=== PATIENT | male | born 1965 | race African-American/Black ===

== ENCOUNTER 2018-11-19 05:17 | Inpatient (IN) | payer OTHER ==
[2018-11-19] VITALS (15 sets, daily range): BP systolic 120–169; BP diastolic 74–101
[~2018-11-19] VITALS: Ht 182.9 cm; Wt 116.6 kg
[~2018-11-19 05:17] MED LIST: NKM
[2018-11-19] MEDS ORDERED: oxyCONTIN 20mg tab ORAL ONE (06:00)
[2018-11-19] MEDS ORDERED: ceFAZolin 1gm IVPB IVPB ONE ×2 (06:00)
[2018-11-19] MEDS ORDERED: celeBREX 200mg Cap **SURGERY PATIENTS ONLY ORAL ONE (06:00)
[2018-11-19] MEDS ORDERED: LR 1000ml 1,000 ML IVLG SCH (06:24)
--- NOTE | 2018-11-19 06:24 | Anethesia Preoperative Eval ---
Anesthesia Pre-op PMH/ROS General Date of Evaluation: Nov 19, 2018 Time of Evaluation: 06:44 Anesthesiologist: Lyric ASA Score: ASA 3 Mallampati Score Class I : Soft palate, uvula, fauces, pillars visible Class II: Soft palate, uvula, fauces visible Class III: Soft palate, base of uvula visible Class IV: Only hard plate visible Mallampati Classification: Class III Surgeon: Kathleen Diagnosis: L Knee Pain Surgical Procedure: L Knee Total Arthroplasty Anesthesia History: none Family History: no anesthesia problems Allergies: Coded Allergies: No Known Allergies (Unverified , 11/18/18) Medications: see eMAR Patient NPO?: Yes NPO Date: Nov 18, 2018 NPO Time: 1999 Past Medical History Cardiovascular: Reports: HTN Pulmonary: Reports: asthma Other: obesity PSxH Narrative: Bilateral Rotator Cuff Repair, Gastric Banding Anesthesia Pre-op Phys. Exam Physician Exam Last Vital Signs Date Time Temp Pulse Resp B/P (MAP) Pulse Ox O2 Delivery O2 Flow Rate FiO2 11/19/18 06:14 Room Air 11/19/18 06:03 97.5 64 18 140/86 (104) 96 Constitutional: NAD Neurologic: CN 2-12 intact Cardiovascular: RRR Respiratory: CTA Gastrointestinal: S/NT/ND Airway Exam Mallampati Score: Class III MO: limited ROM: limited Teeth: missing, intact Anesthesia Pre-op A/P Risk Assessment & Plan Assessment: ASA 3 Plan: GA, Sinal, SED Status Change Before Surgery: No Pre-Antibiotics Dru Grams Ancef IV Given Within 1 Hr of Incision: Yes Time Given: 07:16 Arturo Gunter MD Nov 19, 2018 06:24
[2018-11-19] MEDS ORDERED: Bupivacaine 0.5% Inj 30 ml vial INJ ONE (06:25)
[2018-11-19] MEDS ORDERED: Duramorph PF 5mg/10ml amp ONE (06:25)
[2018-11-19] MEDS ORDERED: Labetalol 5mg/ml 20ml vial IV PRN (06:30)
[2018-11-19] MEDS ORDERED: Metoclopramide 10mg/2ml Inj IVP PRN (06:30)
[2018-11-19] MEDS ORDERED: Bacitracin 50000 Units Vial ONE (06:30)
[2018-11-19] MEDS ORDERED: DiphenhydrAMINE 50mg/ml Inj IVP PRN (06:30)
[2018-11-19] MEDS ORDERED: HYDROcodone/Acetamin 7.5/325 tab ORAL PRN (06:30)
[2018-11-19] MEDS ORDERED: LORazepam Inj 2mg/ml 1ml IV PRN (06:30)
[2018-11-19] MEDS ORDERED: HYDROcodone/Acetamin 5/325 tab ORAL PRN (06:30)
[2018-11-19] MEDS ORDERED: oxyCODONE HCL/Acetaminophen 5/325mg ORAL PRN (06:30)
[2018-11-19] MEDS ORDERED: Meperidine 50mg/ml Inj(FOR RIGORS ONLY) IVP PRN (06:30)
[2018-11-19] MEDS ORDERED: Midazolam 2mg/2ml Inj IVP PRN (06:30)
[2018-11-19] MEDS ORDERED: Hydromorphone 0.5mg/0.5ml inj IVP PRN (06:30)
[2018-11-19] MEDS ORDERED: Tranexamic Acid 1,000 MG in NS 65 ML IV ONE (06:30)
[2018-11-19] MEDS ORDERED: Atropine Sulfate 0.4mg/ml inj IVP PRN (06:30)
[2018-11-19] MEDS ORDERED: fentaNYL 100 mcg/2 mL IV PRN (06:30)
[2018-11-19] MEDS ORDERED: Ketorolac 30mg Inj IV PRN ×2 (06:30)
[2018-11-19] MEDS ORDERED: Dexamethasone 4mg/ml vial ONE ×2 (06:40→09:16)
[2018-11-19] MEDS ORDERED: Sodium Chloride 10ml vial INJ ONE (06:40)
[2018-11-19] MEDS ORDERED: Lidocaine 1% MPF 10mg/ml 5ml ONE (06:40)
[2018-11-19] MEDS ORDERED: EPINEPHrine 1mg/1ml Amp ONE ×2 (06:47→09:17)
--- NOTE | 2018-11-19 06:54 | Pre-Procedure Note/Attestation ---
Pre-Procedure Note/Attestation Complete Prior to Procedure Planned Procedure: left Procedure Narrative: left total knee arthroplasty Indications for Procedure Pre-Operative Diagnosis: left knee arthritis Attestation I attest that I discussed the nature of the procedure; its benefits; risks and complications; and alternatives (and the risks and benefits of such alternatives ), prior to the procedure, with the patient (or the patient's legal corporate sales representative). I attest that, if there was a reasonable possibility of needing a blood transfusion, the patient (or the patient's legal corporate sales representative) was given the [facility] standardized written summary, pursuant to the Trae Miguel Blood Safety Act ([place] Health and Safety Code # 1645, as amended). I attest that I re-evaluated the patient just prior to the surgery and that there has been no change in the patient's H&P, except as documented below: none Edson Wang MD Nov 19, 2018 06:54
[2018-11-19] MEDS ORDERED: NS Irrig 2000ml IRRIG ONE ×2 (07:00→07:58)
[2018-11-19] MEDS ORDERED: LR 1000ml ONE (07:00)
[2018-11-19] MEDS ORDERED: NS Irrig 1000ml ONE (07:00)
[2018-11-19] MEDS ORDERED: Propofol 200mg/20ml IV ONE (07:00)
[2018-11-19] MEDS ORDERED: fentaNYL 100 mcg/2 mL IV ONE (07:42)
[2018-11-19] MEDS ORDERED: Ketamine 500mg Inj ONE (07:47)
[2018-11-19] MEDS ORDERED: Bacitracin 50000 Units Vial IRRIG ONE (07:58)
[2018-11-19] MEDS ORDERED: Acetaminophen (Non formulary) 100 ML IV ONE (08:00)
--- NOTE | 2018-11-19 08:13 | Immediate Post-Op Evaluation ---
Immediate Post-Op Evalulation Immediate Post-Op Evalulation Procedure: L Knee Total Arthroplasty Date of Evaluation: Nov 19, 2018 Time of Evaluation: 09:52 IV Fluids: 1000 LR Blood Products: 0 Estimated Blood Loss: 50 Urinary Output: 100 Blood Pressure Systolic: 147 Blood Pressure Diastolic: 85 Pulse Rate: 91 Respiratory Rate: 16 O2 Sat by Pulse Oximetry: 100 Temperature (Fahrenheit): 98 Pain Score (1-10): 3 Nausea: No Vomiting: No Complications 0 Patient Status: awake, reacts, patent, extubated, none Hydration Status: adequate Dru Grams Ancef IV Given Within 1 Hr of Incision: Yes Time Given: 07:16 Arturo Gunter MD Nov 19, 2018 08:13
[2018-11-19] MEDS ORDERED: Ropivacaine 5mg/ml Vial 30ml INJ ONE (09:17)
--- NOTE | 2018-11-19 09:21 | Brief Operative Note ---
Immediate Post Operative Note Operative Note Chief Complaint: left knee pain Pre-op Diagnosis: left knee arthritis Procedure: left total knee arthroplasty Post-op Diagnosis: same as pre-op Findings: consistent w/pre-op dx studies Surgeon: md rigo Motor Installer: mando barajas Anesthesiologist: md akshat Anesthesia: general Specimen: yes Complications: none Condition: stable Fluids: ns Estimated Blood Loss: minimal Drains: none Implant(s) used?: Yes - austin and nephew India Barajas Nov 19, 2018 09:21
--- NOTE | 2018-11-19 11:20 | NUR ---
NURSE NOTES:RECEIVED FR. PACU BY BED S/P LTKA UNDER SPINAL/LEFT FEMORAL BLOCK,PATIENT AWAKE A/OX4,ON 2LITERS N/C,NO C/O PAIN ON ASSESSMENT,ABLE TO MOVE LEFT LEG AND WIGGLE TOES.SURGICAL DRSNG. CLEAN/DRY/INTACT. WITH KNEE IMMOBILZER ON,.IV SITE ON RFA #20 PATENT.ROSAS WITH GOOD OUTPUT.POST OP ORDERS DISCUSSED WITH PATIENT AND VERBALIZED WITH UNDERSTANDING.NICK(PT) NOTIFIED FOR CPM.
[2018-11-19] MEDS ORDERED: HYDROmorphone 1mg/ml Carpuject SUBQ PRN (12:00)
[2018-11-19] MEDS ORDERED: Milk of Magnesia 30ml Ud ORAL PRN (12:00)
[2018-11-19 12:35] LABS: HEMATOCRIT 40.9 % (42.0-52.0); HEMOGLOBIN 13.2 G/DL (14.2-18.0); MEAN CORPUSCULAR VOLUME 95 FL (80-99); PLATELET COUNT 243 K/UL (150-450); RED BLOOD COUNT 4.31 M/UL (4.70-6.10); RED CELL DISTRIBUTION WIDTH 12.7 % (11.6-14.8); WHITE BLOOD COUNT 7.7 K/UL (4.8-10.8)
[2018-11-19] MEDS: Docusate 100mg cap ORAL SCH ×2 (13:56→17:12)
[2018-11-19] MEDS: D5 1/2NS w/KCl 20mEq 1,000 ML IV SCH (13:57)
[2018-11-19] MEDS: oxyCONTIN 20mg tab ORAL SCH ×2 (13:58→23:57)
[2018-11-19] MEDS: ceFAZolin sod 1 GM in D5W 55 ML IV SCH ×2 (14:07→22:53)
--- NOTE | 2018-11-19 14:45 | NUR ---
NURSE NOTES:CPM ON 60 DEG.STARTED BY NICK (LUCRECIA)
--- NOTE | 2018-11-19 14:46 | Diagnostic Imaging Report ---
Indications: Postoperative Technique: Two views of the left knee Comparison: None Findings: Two postoperative views of the left knee demonstrate total knee arthroplasty, good anatomic alignment of the prosthesis. There is postsurgical soft tissue air. Impression: Postoperative left knee, no unusual features.
--- NOTE | 2018-11-19 14:51 | NUR ---
P.T Note: Order for CPM set up received. Neuro re-checked prior to set-up and remained intact. Pt educated on use and benefits of CPM with verbalization of understanding. CPM set up to L knee and tolerating 0-60 deg well. CPM endorsed to nursing at the end of P.T shift.
[2018-11-19] MEDS: HYDROcodone/Acetamin 5/325 tab ORAL PRN ×2 (17:10→22:54)
--- NOTE | 2018-11-19 17:10 | NUR ---
NURSE NOTES:TOLERATED 4HOURS WITH CPM AT 60 DEG.MEDICATED FOR PAIN 04/15.WITH NORCO 2 TABS.WILL MONITOR.
--- NOTE | 2018-11-19 18:45 | Operative Note - Dictated ---
DATE OF OPERATION: 11/19/2018 PREOPERATIVE DIAGNOSIS: Left knee end-stage arthritis without significant alignment deformity. POSTOPERATIVE DIAGNOSIS: Left knee end-stage arthritis without significant alignment deformity. PROCEDURE: Left total knee arthroplasty using a Crum and Nephew system, size 6 Legion cruciate retaining Oxinium femoral component, size 7 Valentina II left nonporous tibial base plate, size 15 mm ultra cross-linked poly as well as a 35 mm patellar component. SURGEON: Edson Wang M.D. JACKER: India Jacobs PA-C. ANESTHESIOLOGIST: Arturo Gunter M.D. ANESTHESIA: General LMA anesthesia combined with spinal block for postoperative pain management. ESTIMATED BLOOD LOSS: Less than 100 mL. TOURNIQUET TIME: 70 minutes. COMPLICATIONS: None. BRIEF HISTORY: The patient is a pleasant 53-year-old gentleman, who has had ongoing left knee pain. He has a hard time going up and down stairs or getting up off the chair and has nighttime pain. His ambulation is limited to 1.5 to 2 blocks. After full discussion of risks and benefits of the surgery and complications associated with it including infection, bleeding, neurovascular complication, possibility of continued pain, possibility of need for further surgery, possibility of DVT, PEs, loss of motion, and infection requiring resection arthroplasty, other complication may arise, he opted for surgical treatment as described below. OPERATIVE PROCEDURE: The patient was brought to the operating table and was placed supine. All pressure points were well padded. General LMA anesthesia was induced and the left knee was prepped and draped in the usual sterile fashion. The left leg was then exsanguinated and the tourniquet was inflated to 300 mmHg. Standard anterior approach to the knee was undertaken and the incision was taken through subcutaneous tissue. Medial parapatellar arthrotomy was performed and deep fibers of the MCL were released. Medial lateral meniscus were removed. The fat pad underneath the patella was removed. The patella was everted and knee was flexed. At this point, ACL and PCL were resected. Intramedullary access into the femur was obtained and a distal femoral cut was performed in 5 degrees of valgus. Once this was completed, measurements were made and size 6 femur appeared to be the right size. The cutting guide was placed in 3 degrees of external rotation and anterior, posterior, and chamfer cuts were performed without any complications. At this point, a trial 6 femur was applied slightly lateralized. The PEG holes were drilled. This femur was fitting very, very well. At this point in time, care was given to the tibia. The anterior tibial crest was palpated and marked. This was used to guide an anatomical access. The extramedullary guide was applied and slope was recreated and anatomical axis was recreated with no varus or valgus malalignment. A 9 mm was taken off the least involved side, which was the lateral side. At this point, pins were applied and measurements were made and once the alignment appeared to be good and slope was recreated, the tibial cut was performed without any complication. It should be noted that there were retractors posteriorly, medial, and laterally to protect the vital structures. Once this was completed, the tibia was removed. The flexion-extension gap was checked and appeared to be excellent. The tibial trial was applied and size 7 appeared to be the right size. This was applied and the tibia was punched. At this point, a trial femur, trial tibia, and initially 13 and subsequently 15 mm poly was applied. The 15 mm poly brought the knee out to full extension and full flexion and excellent stability at 0, 30 degrees, 45 degrees, and 90 degrees of flexion. There was no evidence of instability in extension or flexion. At this point, care was given to the patella. The patella was everted, this measured 26 mm. At this point, a freehand patellar cut was performed and with 15 mm of patella remaining. The size 35 patella appeared to be the right size and PEG holes were drilled. At this point, trial patella was applied and using a trial femur and trial tibia, 15 mm insert, the patellofemoral tracking was checked. This appeared to be excellent. At this point, all trial components were removed. The knee was thoroughly irrigated using Simpulse irrigation. This was then dried. Cement was mixed and cement was applied. The tibial component, femoral component, and patellar components were all cemented without any complication. All excess cement was removed and the components were placed under compression as the cement hardened. Once the cement hardened, the trialing was performed with a 15 mm poly again appeared to be excellent. There was full extension, full flexion, and great stability as discussed previously. At this point, the trial tibial insert component was removed and base plate was thoroughly irrigated and cleaned of overlying soft tissue. At this point, a 15 mm ultra cross-linked poly was applied and was locked onto the tibial tray without any complication. Once this was completed, the range of motion and stability was checked and appeared to be excellent as described previously. The knee was thoroughly irrigated using Simpulse irrigation. The tourniquet was deflated and there was minimal bleeding, which was stabilized using electrocautery. The extensor mechanism was closed using #1 Vicryl suture. Subcutaneous tissue closed using 2-0 Vicryl suture. Skin was closed using 3-0 Monocryl suture. Dermabond was applied and Steri-Strips were applied. The patient tolerated the procedure very well without any complication. Sterile dressing was applied and he was taken to recovery room in stable condition. All lap counts and instrument counts were correct. A time-out was performed prior to proceeding with surgery. Preoperative antibiotics and tranexamic acid was given prior to starting the surgery. Edson Wang M.D. DR: ROBERT JOB#: [id number] CC: JUSTO
--- NOTE | 2018-11-19 19:15 | NUR ---
HAND-OFF: Report given to ANIVAL VERAS.PATIENT STABLE.
--- NOTE | 2018-11-19 19:30 | NUR ---
NURSE NOTES: Patient received in bed, awake, alert. Denies pain at this time. Knee immobilizer on .Frey cather draining via gravity. Call light and personal belongings within reach. Will monitor.
[2018-11-19] MEDS: Enoxaparin 30mg Inj SUBQ SCH (20:22)
[2018-11-20] VITALS: BP 110/69
--- NOTE | 2018-11-20 | NUR ---
NURSE NOTES: Patient refused oxycontin at first. Explained importance and benefits of pain management regimen, patient stated "I'll be ok until morning." Medication was returned and witnessed by Randa MCKINNEY. As soon as medication was returned, patient called and changed his mind regarding taking oxycontin. Oxycontin once again pulled out and administered as prescribed.
[2018-11-20] MEDS: D5 1/2NS w/KCl 20mEq 1,000 ML IV SCH (01:31)
[2018-11-20 04:00] VITALS: BP 120/81
[2018-11-20 06:21] LABS: BASOPHILS % (AUTO) 0.6 % (0.0-2.0); EOSINOPHILS % (AUTO) 0.1 % (0.0-3.0); HEMATOCRIT 33.8 % (42.0-52.0); HEMOGLOBIN 11.1 G/DL (14.2-18.0); LYMPHOCYTES % (AUTO) 22.5 % (20.0-45.0); MEAN CORPUSCULAR VOLUME 94 FL (80-99); MONOCYTES % (AUTO) 11.4 % (1.0-10.0); NEUTROPHILS % (AUTO) 65.4 % (45.0-75.0); PLATELET COUNT 216 K/UL (150-450); RED BLOOD COUNT 3.59 M/UL (4.70-6.10); RED CELL DISTRIBUTION WIDTH 12.7 % (11.6-14.8); WHITE BLOOD COUNT 6.5 K/UL (4.8-10.8)
--- NOTE | 2018-11-20 07:20 | NUR ---
NURSE NOTES:RECEIVED REPORT FR.HENRIQUE RN(XYLUCIO),PATIENT A/OX4,ROOM AIR,,PLEASANT AND CONVERSANT,PAIN LEVEL 2/10,COMFORTABLE,SURGICAL DRSNG.CLEAN/DRY/INTACT.NEUROVASCULAR CIRCULATION ON LEFT FOOT WNL.ICE PACK TO KNEE.IV SITE PATENT.PLAN OF CARE DISCUSSED,VERBALIZED UNDERSTANDING.
--- NOTE | 2018-11-20 07:20 | NUR ---
HAND-OFF: Report given to Kristan VERAS.
[2018-11-20 08:00] VITALS: BP 124/68
--- NOTE | 2018-11-20 08:01 | Orthopedic Progress Note ---
Orthopedic - Progress Note Subjective Symptoms: c/o post-op knee pain Objective Laboratory Tests Test 11/19/18 12:23 11/20/18 05:30 White Blood Count 7.7 K/UL (4.8-10.8) 6.5 K/UL (4.8-10.8) Red Blood Count 4.31 M/UL (4.70-6.10) L 3.59 M/UL (4.70-6.10) L Hemoglobin 13.2 G/DL (14.2-18.0) L 11.1 G/DL (14.2-18.0) L Hematocrit 40.9 % (42.0-52.0) L 33.8 % (42.0-52.0) L Mean Corpuscular Volume 95 FL (80-99) 94 FL (80-99) Mean Corpuscular Hemoglobin 30.6 PG (27.0-31.0) 31.0 PG (27.0-31.0) Mean Corpuscular Hemoglobin Concent 32.2 G/DL (32.0-36.0) 32.9 G/DL (32.0-36.0) Red Cell Distribution Width 12.7 % (11.6-14.8) 12.7 % (11.6-14.8) Platelet Count 243 K/UL (150-450) 216 K/UL (150-450) Mean Platelet Volume 5.9 FL (6.5-10.1) L 6.2 FL (6.5-10.1) L Neutrophils (%) (Auto) % (45.0-75.0) 65.4 % (45.0-75.0) Lymphocytes (%) (Auto) % (20.0-45.0) 22.5 % (20.0-45.0) Monocytes (%) (Auto) % (1.0-10.0) 11.4 % (1.0-10.0) H Eosinophils (%) (Auto) % (0.0-3.0) 0.1 % (0.0-3.0) Basophils (%) (Auto) % (0.0-2.0) 0.6 % (0.0-2.0) Differential Total Cells Counted 100 Neutrophils % (Manual) 95 % (45-75) H Lymphocytes % (Manual) 3 % (20-45) L Monocytes % (Manual) 2 % (1-10) Eosinophils % (Manual) 0 % (0-3) Basophils % (Manual) 0 % (0-2) Band Neutrophils 0 % (0-8) Platelet Estimate Adequate Platelet Morphology Normal Red Blood Cell Morphology Normal Last 24 Hour Vital Signs Date Time Temp Pulse Resp B/P (MAP) Pulse Ox O2 Delivery O2 Flow Rate FiO2 11/20/18 07:15 Nasal Cannula 2.0 Room Air 11/20/18 04:00 98.2 68 18 120/81 (94) 100 11/20/18 00:27 97.7 11/20/18 00:00 97.7 62 18 110/69 (83) 96 11/19/18 23:24 97.7 11/19/18 21:00 Nasal Cannula 2.0 Room Air 11/19/18 20:00 98.0 76 18 127/74 (91) 97 11/19/18 16:00 97.7 65 19 125/75 (92) 98 11/19/18 12:00 98.9 73 20 128/75 (92) 99 11/19/18 11:30 Nasal Cannula 2.0 Nasal Cannula 2.0 11/19/18 11:30 98.9 82 20 128/79 (95) 98 11/19/18 11:05 98.0 78 18 120/76 99 Nasal Cannula 3 11/19/18 10:55 79 18 131/81 99 Nasal Cannula 3 11/19/18 10:41 98.0 11/19/18 10:41 98.0 11/19/18 10:41 98.0 11/19/18 10:39 74 18 140/98 99 Nasal Cannula 3 11/19/18 10:30 78 18 146/93 99 Nasal Cannula 3 11/19/18 10:18 77 18 148/90 99 Nasal Cannula 3 11/19/18 10:14 79 18 150/101 100 Nasal Cannula 3 11/19/18 10:12 79 18 169/101 100 Nasal Cannula 3 11/19/18 09:51 79 18 150/97 100 Simple Mask 8 11/19/18 09:51 91 16 100 11/19/18 09:46 79 18 149/90 100 Simple Mask 8 11/19/18 09:41 98.0 98 18 147/85 100 Simple Mask 8 Intake and Output 11/19/18 11/20/18 19:00 07:00 Intake Total 1655 ml 1397.5 ml Output Total 275 ml 1250 ml Balance 1380 ml 147.5 ml Intake Oral 480 ml IV Total 1655 ml 917.5 ml Output Urine Total 225 ml 1250 ml Estimated Blood Loss 50 ml Laboratory Tests Test 11/19/18 12:23 11/20/18 05:30 White Blood Count 7.7 K/UL (4.8-10.8) 6.5 K/UL (4.8-10.8) Red Blood Count 4.31 M/UL (4.70-6.10) L 3.59 M/UL (4.70-6.10) L Hemoglobin 13.2 G/DL (14.2-18.0) L 11.1 G/DL (14.2-18.0) L Hematocrit 40.9 % (42.0-52.0) L 33.8 % (42.0-52.0) L Mean Corpuscular Volume 95 FL (80-99) 94 FL (80-99) Mean Corpuscular Hemoglobin 30.6 PG (27.0-31.0) 31.0 PG (27.0-31.0) Mean Corpuscular Hemoglobin Concent 32.2 G/DL (32.0-36.0) 32.9 G/DL (32.0-36.0) Red Cell Distribution Width 12.7 % (11.6-14.8) 12.7 % (11.6-14.8) Platelet Count 243 K/UL (150-450) 216 K/UL (150-450) Mean Platelet Volume 5.9 FL (6.5-10.1) L 6.2 FL (6.5-10.1) L Neutrophils (%) (Auto) % (45.0-75.0) 65.4 % (45.0-75.0) Lymphocytes (%) (Auto) % (20.0-45.0) 22.5 % (20.0-45.0) Monocytes (%) (Auto) % (1.0-10.0) 11.4 % (1.0-10.0) H Eosinophils (%) (Auto) % (0.0-3.0) 0.1 % (0.0-3.0) Basophils (%) (Auto) % (0.0-2.0) 0.6 % (0.0-2.0) Differential Total Cells Counted 100 Neutrophils % (Manual) 95 % (45-75) H Lymphocytes % (Manual) 3 % (20-45) L Monocytes % (Manual) 2 % (1-10) Eosinophils % (Manual) 0 % (0-3) Basophils % (Manual) 0 % (0-2) Band Neutrophils 0 % (0-8) Platelet Estimate Adequate Platelet Morphology Normal Red Blood Cell Morphology Normal Wound: clean, dry, intact Drains: none Neuro Status: normal Vascular Status: normal Additional Comments xray excellent Assessment Post-op Diagnosis POD 1 Procedure Performed left total knee arthroplasty Plan Plan: PT, pain management India Jacbos Nov 20, 2018 08:01
[2018-11-20] MEDS: Docusate 100mg cap ORAL SCH ×3 (08:42→17:20)
--- NOTE | 2018-11-20 08:42 | 48 Hour Post Anesthesia Eval ---
Post Anesthesia Evaluation Procedure: L Knee Total Arthroplasty Date of Evaluation: Nov 20, 2018 Time of Evaluation: 06:38 Blood Pressure Systolic: 120 0: 81 Pulse Rate: 68 Respiratory Rate: 18 Temperature (Fahrenheit): 98.2 O2 Sat by Pulse Oximetry: 100 Airway: patent Nausea: No Vomiting: No Pain Intensity: 2 Hydration Status: adequate Cardiopulmonary Status: Stable Mental Status/LOC: patient returned to baseline Follow-up Care/Observations: 0 Post-Anesthesia Complications: 0 Follow-up care needed: N/A Arturo Gunter MD Nov 20, 2018 08:42
[2018-11-20] MEDS: oxyCONTIN 20mg tab ORAL SCH ×2 (08:43→21:12)
[2018-11-20] MEDS: celeBREX 200mg Cap **SURGERY PATIENTS ONLY ORAL SCH (08:44)
[2018-11-20] MEDS: Enoxaparin 30mg Inj SUBQ SCH ×2 (08:46→21:09)
--- NOTE | 2018-11-20 11:32 | NUR ---
P.T NOTE: LATE ENTRY 1045 P.T EVALUATION COMPLETED AND TREATMENT INITIATED PER TKR PROTOCOL. PLEASE REFER TO P.T EVALUATION FOR CURRENT FUNCTIONAL STATUS. PATIENT IS ALERT O X 4, PLEASANT AND COOPERATIVE. PATIENT IS CURRENTLY LIMITED BY PAIN, GENERALIZED WEAKNESS AND EPISODE OF NAUSEA AND LIGHTHEADEDNESS . PATIENT BECAME DIAPHORETIC AND SEMI UNRESPONSIVE AFTER STANDING FOR 1 MIN.PATIENT IMMEDIATELY ASSISTED BACK TO BED THEN BECAME FULLY RESPONSIVE.NEURO RECHECKED AND REMAINED INTACT ,BP :98/52MMHG WITH HR: 80 BPM PRE STANDING. 80/42 MMHG, HR=74 BPM POST STANDING AND THEN RECOVERED TO 129/60, HR= 75 BPM AFTER 10 MIN RESTING IN SUPINE. PATIENT STATED HE FELT BETTER AFTER RESTING IN SUPINE. PERFORMED COMPLETED BED MOBILITY, TRANSFER AND GAIT ACTIVITIES WITHOUT UNTOWARD INCIDENT THIS TIME. NOW RESTING IN THE CHAIR COMFORTABLY. VITALS RE TAKEN AND REMAIN STABLE. PATIENT CURRENTLY REQUIRE MIN X 1 FOR BED MOBILITY, TRANSFERS AND GAIT /AMBULATION ACTIVITIES USING THE FWW. SKILLED P.T SERVICE IS WARRANTED TO IMPROVE STRENGTH, BALANCE, ENDURANCE TO INCREASE FUNCTIONAL MOBILITY INDEPENDENCE AND SAFETY TO PREPARE PATIENT TO THE NEXT LEVEL OF CARE. RECOMMEND SNF FOR SHORT TERM REHAB OR HOME WITH P.T FOLLOW UP DEPENDING ON PROGRESS. DME'S TO INCLUDE FWW AND RAISED TOILET SEAT. THANK YOU FOR THIS REFERRAL.
[2018-11-20 12:21] VITALS: BP 123/68
--- NOTE | 2018-11-20 14:18 | NUR ---
CASE MANAGEMENT:REVIEW 11/19/18 53 YR OLD MALE HERE FOR ELECTIVE SURGERY SI: LT KNEE PAIN/ARTHRITIS 97.5 64 18 140/86 96% ON RA H/H-13.2/40.9 IS: TO SURGERY FOR: TOTAL LT KNEE ARTHROPLASTY IV ANCEF Q8HRS : TO MED/SURG POST OP INTERQUAL CRITERIA MET
[2018-11-20 16:07] VITALS: BP 143/88
--- NOTE | 2018-11-20 19:30 | NUR ---
HAND-OFF: Report given to ABBY VERAS PATIENT C/O OF SHARP/PULLING PAIN DURING ROUNDS IN LEFT THIGH,SKIN WARM TO TOUCH,ABLE TO WIGGLE TOES,MEDICATED WITH DILAUDID 2MG SUBQ,ICE PACK APPLIED ENDORSED TO INCOMING RN. TO FOLLOW UP..
--- NOTE | 2018-11-20 19:35 | NUR ---
NURSE NOTES: Report received from RITO Rushing. Patient alert, oriented. Was medicated for pain, see eMAR for assessment. Left knee dressing intact and dry.
[2018-11-20 20:00] VITALS: BP 124/79
[2018-11-21] VITALS: BP 121/71
[2018-11-21] MEDS: HYDROcodone/Acetamin 5/325 tab ORAL PRN (02:38)
--- NOTE | 2018-11-21 03:30 | NUR ---
NURSE NOTES: Patient asleep, respiration unlabored.
[2018-11-21 04:00] VITALS: BP 127/87
--- NOTE | 2018-11-21 04:04 | NUR ---
NURSE NOTES: Patient awake, states pain has improved a bit but that he hasn't really slept. see eMAR for med intervention.
[2018-11-21 07:35] LABS: BASOPHILS % (AUTO) 1.3 % (0.0-2.0); EOSINOPHILS % (AUTO) 0.5 % (0.0-3.0); HEMATOCRIT 29.6 % (42.0-52.0); HEMOGLOBIN 9.8 G/DL (14.2-18.0); MEAN CORPUSCULAR VOLUME 94 FL (80-99); MONOCYTES % (AUTO) 10.4 % (1.0-10.0); NEUTROPHILS % (AUTO) 62.8 % (45.0-75.0); PLATELET COUNT 176 K/UL (150-450); RED BLOOD COUNT 3.16 M/UL (4.70-6.10); RED CELL DISTRIBUTION WIDTH 12.8 % (11.6-14.8); WHITE BLOOD COUNT 5.5 K/UL (4.8-10.8)
[2018-11-21 08:00] VITALS: BP 134/79
--- NOTE | 2018-11-21 08:00 | NUR ---
NURSE NOTES: Received report from Saskia VERAS, pt a/a/o x4 laying in bed with no signs of distress or other issues at this time. per track vehicle repairer nurse IV removed during her shift, RN will attempt later. Surgical dressing soil. RN will change dressing per MD protocol. pt eating regular diet and able to tolerated well with n/v. call light within reach. bed in lowest position. side rales up x2. I will f/u as needed.
[2018-11-21] MEDS: Docusate 100mg cap ORAL SCH ×3 (08:22→18:04)
[2018-11-21] MEDS: celeBREX 200mg Cap **SURGERY PATIENTS ONLY ORAL SCH (08:22)
[2018-11-21] MEDS: oxyCONTIN 20mg tab ORAL SCH ×2 (08:22→21:17)
[2018-11-21] MEDS: Enoxaparin 30mg Inj SUBQ SCH ×2 (08:23→21:16)
--- NOTE | 2018-11-21 08:24 | Orthopedic Progress Note ---
Orthopedic - Progress Note Subjective Symptoms: c/o post-op knee pain Objective Last 24 Hour Vital Signs Date Time Temp Pulse Resp B/P (MAP) Pulse Ox O2 Delivery O2 Flow Rate FiO2 11/21/18 04:00 99.3 86 18 127/87 (100) 98 11/21/18 00:00 98.5 88 18 121/71 (88) 99 11/20/18 21:00 Room Air Room Air 11/20/18 20:00 98.5 81 18 124/79 (94) 99 11/20/18 16:07 99.4 84 19 143/88 (106) 99 11/20/18 12:21 98.0 77 18 123/68 (86) 93 11/20/18 08:42 68 18 100 Intake and Output 11/20/18 11/21/18 19:00 07:00 Intake Total 300 ml Output Total 350 ml 700 ml Balance -50 ml -700 ml Intake Oral 300 ml Output Urine Total 350 ml 700 ml Laboratory Tests Test 11/21/18 06:20 White Blood Count 5.5 K/UL (4.8-10.8) Red Blood Count 3.16 M/UL (4.70-6.10) L Hemoglobin 9.8 G/DL (14.2-18.0) L Hematocrit 29.6 % (42.0-52.0) L Mean Corpuscular Volume 94 FL (80-99) Mean Corpuscular Hemoglobin 31.1 PG (27.0-31.0) H Mean Corpuscular Hemoglobin Concent 33.1 G/DL (32.0-36.0) Red Cell Distribution Width 12.8 % (11.6-14.8) Platelet Count 176 K/UL (150-450) Mean Platelet Volume 6.1 FL (6.5-10.1) L Neutrophils (%) (Auto) 62.8 % (45.0-75.0) Lymphocytes (%) (Auto) 25.0 % (20.0-45.0) Monocytes (%) (Auto) 10.4 % (1.0-10.0) H Eosinophils (%) (Auto) 0.5 % (0.0-3.0) Basophils (%) (Auto) 1.3 % (0.0-2.0) Wound: clean, dry Drains: none Neuro Status: normal Assessment Post-op Diagnosis Doing well s/p Left TKA. Plan Plan: PT, pain management, discharge plan Edson Wang MD Nov 21, 2018 08:24
--- NOTE | 2018-11-21 08:45 | NUR ---
NURSE NOTES: Called Roxana LALA to inform that pt has order for ARU referral to [facility]. Roxana LALA stated that she is aware and that she is working on it. I will f/u as needed.
--- NOTE | 2018-11-21 09:00 | NUR ---
NURSE NOTES: RN removed Frey cath as ordered by . pt was able to tolerated procedure with no issues. RN will follow up for post void. Surgical dressing changed as directed by . I will f/u as needed.
--- NOTE | 2018-11-21 09:49 | NUR ---
DISCHARGE PLANNING PAT[facility] AWAITING RESPONSE DISCHARGE PLAN IS FOR TOMORROW
[2018-11-21 12:00] VITALS: BP 118/82
--- NOTE | 2018-11-21 13:23 | NUR ---
CASE MANAGEMENT:REVIEW 11/21/18 SI:POD #1 S/P TOTAL LT KNEE ARTHROPLASTY 99.3 82 19 118/82 99% ON RA H/H-9.8/29.6 IS: CELEBREX PO QD LOVENOX SQ Q12 DILAUDID SQ Q3HRS NORCO PO Q4HRS PRN : MED/SURG STATUS 3 EAST DCP: PATIENT HAS BEEN REFERRED TO [facility]
[2018-11-21] MEDS: HYDROcodone/Acetamin 7.5/325 tab ORAL PRN ×2 (14:02→18:04)
[2018-11-21 16:00] VITALS: BP 136/76
[2018-11-21 20:00] VITALS: BP 124/71
--- NOTE | 2018-11-21 20:04 | NUR ---
HAND-OFF: Report given to Lacy VERAS, pt in stable condition, with no signs of distress or other issues at this time. - pt was able to void with no issues after removal of isaacs. - surgical dressing changed with 4x4 and Tegaderm per MD protocol. - [facility] 11/22/18.
--- NOTE | 2018-11-21 20:11 | NUR ---
NURSE NOTES: Received report from RITO Jones. Patient is awake lying semi-gage's; resting comfortably. No signs of acute distress noted; complains of pain. AOx4; able to make needs known. No IV site noted. Will attempt to reinsert IV access at a later time. Left lower extremity surgical wound dressing dry and intact. Bed at lowest position, brakes on, siderails up x3. Call light within reach. Will continue to monitor.
--- NOTE | 2018-11-21 21:45 | NUR ---
NURSE NOTES: Received order from Dr. Rivera to have patient on continous pulse ox during hours of sleep and 2L nasal cannula. Noted and carried out.
--- NOTE | 2018-11-21 21:45 | Consultation ---
History of Present Illness General Date patient seen: Nov 21, 2018 Time patient seen: 21:43 Referring physician: KESHIA Reason for Consultation: MEDICAL CONSULT Present Illness Allergies: Coded Allergies: NEOMYCIN (Unverified Allergy, Unknown, 11/19/18) POLYMYXIN B (Unverified Allergy, Unknown, 11/19/18) Uncoded Allergies: ANTIBIOTICS NEOMYCIN- POLYMYXIN (Allergy, Unknown, 11/19/18) Medication History Scheduled No Known Medications* (NKM - No Known Medications*), 0 ., (Reported) Patient History Healthcare decision maker jackelin(niece) Resuscitation status Full Code Advanced Directive on File No Review of Systems Constitutional: Reports: no symptoms Eye: Reports: no symptoms ENT: Reports: no symptoms Respiratory: Reports: no symptoms Cardiovascular: Reports: no symptoms ROS Narrative DOING WELL NO SOB Physical Exam General Appearance: WD/WN HEENT: normocephalic Respiratory/Chest: lungs clear Cardiovascular/Chest: normal rate, regular rhythm, no JVD Abdomen: non tender, soft Extremities: other - NO CALF TENDERNESS Last 24 Hour Vital Signs Date Time Temp Pulse Resp B/P (MAP) Pulse Ox O2 Delivery O2 Flow Rate FiO2 11/21/18 20:00 99.2 89 17 124/71 (88) 99 11/21/18 18:34 99.3 11/21/18 16:00 100.0 93 19 136/76 (96) 99 11/21/18 12:00 99.3 82 19 118/82 (94) 99 11/21/18 09:00 Room Air Room Air 11/21/18 08:52 99.3 11/21/18 08:00 99.2 79 19 134/79 (97) 100 11/21/18 04:00 99.3 86 18 127/87 (100) 98 11/21/18 00:00 98.5 88 18 121/71 (88) 99 Intake and Output 11/20/18 11/21/18 18:59 06:59 Intake Total 300 ml 450 ml Output Total 350 ml 700 ml Balance -50 ml -250 ml Intake Oral 300 ml 450 ml Output Urine Total 350 ml 700 ml Laboratory Tests Test 11/21/18 06:20 White Blood Count 5.5 K/UL (4.8-10.8) Red Blood Count 3.16 M/UL (4.70-6.10) L Hemoglobin 9.8 G/DL (14.2-18.0) L Hematocrit 29.6 % (42.0-52.0) L Mean Corpuscular Volume 94 FL (80-99) Mean Corpuscular Hemoglobin 31.1 PG (27.0-31.0) H Mean Corpuscular Hemoglobin Concent 33.1 G/DL (32.0-36.0) Red Cell Distribution Width 12.8 % (11.6-14.8) Platelet Count 176 K/UL (150-450) Mean Platelet Volume 6.1 FL (6.5-10.1) L Neutrophils (%) (Auto) 62.8 % (45.0-75.0) Lymphocytes (%) (Auto) 25.0 % (20.0-45.0) Monocytes (%) (Auto) 10.4 % (1.0-10.0) H Eosinophils (%) (Auto) 0.5 % (0.0-3.0) Basophils (%) (Auto) 1.3 % (0.0-2.0) Height (Feet): 6 Height (Inches): 0.00 Weight (Pounds): 260 Medications Current Medications Medications (Trade) Dose Ordered Sig/Jeremy Route PRN Reason Start Time Stop Time Status Last Admin Dose Admin Acetaminophen (Tylenol) 650 mg Q4H PRN ORAL temp>100.2 or headache 11/19/18 13:00 12/19/18 12:59 Acetaminophen/ Hydrocodone Bitart ([place] 5/325) 2 tab Q4H PRN ORAL pain scores 4-10 11/19/18 12:00 11/26/18 11:59 11/21/18 02:38 Acetaminophen/ Hydrocodone Bitart ([place] 7.5/325) 1 tab Q4H PRN ORAL Mild Pain (Pain Scale 1-3) 11/19/18 12:00 11/26/18 11:59 11/21/18 18:04 Celecoxib (CeleBREX) 200 mg DAILY ORAL 11/20/18 09:00 12/20/18 08:59 11/21/18 08:22 Docusate Sodium (Colace) 100 mg THREE TIMES A DAY ORAL 11/19/18 13:00 12/19/18 12:59 11/21/18 18:04 Enoxaparin Sodium (Lovenox) 30 mg EVERY 12 HOURS SUBQ 11/19/18 21:00 12/19/18 20:59 11/21/18 21:16 Ferrous Sulfate (Feosol) 325 mg THREE TIMES A DAY ORAL 11/19/18 13:00 12/19/18 12:59 11/21/18 18:04 Hydromorphone HCl (Dilaudid) 1 mg Q4H PRN SUBQ Mild Pain (Pain Scale 1-3) 11/19/18 12:00 11/26/18 11:59 Hydromorphone HCl (Dilaudid) 2 mg Q3H PRN SUBQ Severe Pain (Pain Scale 7-10) 11/19/18 12:00 11/26/18 11:59 11/20/18 19:42 Hydromorphone HCl (Dilaudid) 2 mg Q4H PRN SUBQ Moderate Pain (Pain Scale 4-6) 11/19/18 12:00 11/26/18 11:59 Magnesium Hydroxide (Mom) 30 ml DAILYPRN PRN ORAL Constipation 11/19/18 12:00 12/19/18 11:59 Ondansetron HCl (Zofran) 4 mg Q6H PRN IVP Nausea & Vomiting 11/19/18 12:00 12/19/18 11:59 Oxycodone HCl (OxyCONTIN) 20 mg EVERY 12 HOURS ORAL 11/19/18 12:00 11/26/18 11:59 11/21/18 21:17 Temazepam (Restoril) 15 mg HSPRN PRN ORAL Insomnia 11/19/18 21:00 11/26/18 20:59 11/21/18 03:52 Assessment/Plan Assessment: S/P TOTAL KNEE ARTHROPLASTY DATE OF OPERATION: 11/19/2018 PREOPERATIVE DIAGNOSIS: Left knee end-stage arthritis without significant alignment deformity. POSTOPERATIVE DIAGNOSIS: Left knee end-stage arthritis without significant alignment deformity. PROCEDURE: Left total knee arthroplasty using a Crum and Nephew system, size 6 Legion cruciate retaining Oxinium femoral component, size 7 Valentina II left nonporous tibial base plate, size 15 mm ultra cross-linked poly as well as a 35 mm patellar component. SURGEON: Edson Wang M.D. POWER ELECTRONICS ENGINEER: India Jacobs PA-C. ANESTHESIOLOGIST: Arturo Gunter M.D. ANESTHESIA: General LMA anesthesia combined with spinal block for postoperative pain management. ESTIMATED BLOOD LOSS: Less than 100 mL. TOURNIQUET TIME: 70 minutes. COMPLICATIONS: None. Treatment Plan: MINIMAL BLOO DLOSS PERIOOPERATIVE ANTIBIOTIC PROPHYALXIS GIVEN POST OPERATIVE DVT RPOPHYALXIS PAINCONTROL MONITOR LEANNA DOING WELL DC PLANNING. Jeff Rivera MD Nov 21, 2018 21:45
[2018-11-22] VITALS (11 sets, daily range): BP systolic 117–143; BP diastolic 64–80
--- NOTE | 2018-11-22 03:42 | NUR ---
NURSE NOTES: Assisted patient to the bathroom with patient's own walker. No signs of acute distress noted.
[2018-11-22] MEDS: HYDROcodone/Acetamin 5/325 tab ORAL PRN ×2 (03:50→18:13)
--- NOTE | 2018-11-22 04:05 | NUR ---
NURSE NOTES: Patient is strongly refusing IV insertion at this time. Risks and benefits explained x3; still refusing.
[2018-11-22 06:42] LABS: BASOPHILS % (AUTO) 1.1 % (0.0-2.0); EOSINOPHILS % (AUTO) 0.6 % (0.0-3.0); HEMATOCRIT 28.8 % (42.0-52.0); HEMOGLOBIN 9.5 G/DL (14.2-18.0); LYMPHOCYTES % (AUTO) 14.5 % (20.0-45.0); MEAN CORPUSCULAR VOLUME 94 FL (80-99); NEUTROPHILS % (AUTO) 75.8 % (45.0-75.0); PLATELET COUNT 188 K/UL (150-450); RED BLOOD COUNT 3.05 M/UL (4.70-6.10); RED CELL DISTRIBUTION WIDTH 12.5 % (11.6-14.8); WHITE BLOOD COUNT 5.8 K/UL (4.8-10.8)
--- NOTE | 2018-11-22 07:48 | NUR ---
HAND-OFF: Report given to RITO Montilla. Patient is awake lying semi-gage's; resting comfortably. In stable condition.
--- NOTE | 2018-11-22 07:53 | NUR ---
NURSE NOTES: Called Dr. Alfaro regarding a possible sitter order for patient. Awaiting callback. Addendum: 11/22/18 at 0807 by DELFIN SHERIDAN RN RN Wrong patient.
--- NOTE | 2018-11-22 07:58 | Orthopedic Progress Note ---
Orthopedic - Progress Note Subjective Symptoms: improved Objective Laboratory Tests Test 11/22/18 05:45 White Blood Count 5.8 K/UL (4.8-10.8) Red Blood Count 3.05 M/UL (4.70-6.10) L Hemoglobin 9.5 G/DL (14.2-18.0) L Hematocrit 28.8 % (42.0-52.0) L Mean Corpuscular Volume 94 FL (80-99) Mean Corpuscular Hemoglobin 31.2 PG (27.0-31.0) H Mean Corpuscular Hemoglobin Concent 33.0 G/DL (32.0-36.0) Red Cell Distribution Width 12.5 % (11.6-14.8) Platelet Count 188 K/UL (150-450) Mean Platelet Volume 6.0 FL (6.5-10.1) L Neutrophils (%) (Auto) 75.8 % (45.0-75.0) H Lymphocytes (%) (Auto) 14.5 % (20.0-45.0) L Monocytes (%) (Auto) 8.0 % (1.0-10.0) Eosinophils (%) (Auto) 0.6 % (0.0-3.0) Basophils (%) (Auto) 1.1 % (0.0-2.0) Last 24 Hour Vital Signs Date Time Temp Pulse Resp B/P (MAP) Pulse Ox O2 Delivery O2 Flow Rate FiO2 11/22/18 04:00 99.3 73 18 132/80 (97) 96 11/22/18 00:00 98.1 87 17 143/72 (95) 97 11/21/18 21:00 Room Air Room Air 11/21/18 20:00 99.2 89 17 124/71 (88) 99 11/21/18 18:34 99.3 11/21/18 16:00 100.0 93 19 136/76 (96) 99 11/21/18 12:00 99.3 82 19 118/82 (94) 99 11/21/18 09:00 Room Air Room Air 11/21/18 08:52 99.3 11/21/18 08:00 99.2 79 19 134/79 (97) 100 Intake and Output 11/21/18 11/22/18 19:00 07:00 Intake Total 1500 ml 240 ml Output Total 900 ml Balance 1500 ml -660 ml Intake Oral 1500 ml 240 ml Output Urine Total 900 ml # Bowel Movements 1 Laboratory Tests Test 11/22/18 05:45 White Blood Count 5.8 K/UL (4.8-10.8) Red Blood Count 3.05 M/UL (4.70-6.10) L Hemoglobin 9.5 G/DL (14.2-18.0) L Hematocrit 28.8 % (42.0-52.0) L Mean Corpuscular Volume 94 FL (80-99) Mean Corpuscular Hemoglobin 31.2 PG (27.0-31.0) H Mean Corpuscular Hemoglobin Concent 33.0 G/DL (32.0-36.0) Red Cell Distribution Width 12.5 % (11.6-14.8) Platelet Count 188 K/UL (150-450) Mean Platelet Volume 6.0 FL (6.5-10.1) L Neutrophils (%) (Auto) 75.8 % (45.0-75.0) H Lymphocytes (%) (Auto) 14.5 % (20.0-45.0) L Monocytes (%) (Auto) 8.0 % (1.0-10.0) Eosinophils (%) (Auto) 0.6 % (0.0-3.0) Basophils (%) (Auto) 1.1 % (0.0-2.0) Wound: clean, dry, intact Drains: none Neuro Status: normal Vascular Status: normal Assessment Post-op Diagnosis POD 3 Procedure Performed left total knee arthroplasty Plan Plan: discharge plan - to SNF today. fu 2 weeks India Mace Nov 22, 2018 07:58
--- NOTE | 2018-11-22 07:59 | Discharge Summary ---
Discharge Summary Hospital Course Date of Admission Nov 19, 2018 at 05:17 Date of Discharge 11/22/18 Admitting Diagnosis left knee arthritis Reason for Hospitalization: s/p left TKA HPI Fawad Persaud is a 53 year old male who was admitted on Nov 19, 2018 at 05:17 for Traumatic Arthropathy, Left Knee Consultations MD Miguel Procedures left TKA Hospital Course benign Discharge Condition Upon Discharge: improving, stable Discharge Disposition Patient was discharged to SNF [place] Jcaobs Nov 22, 2018 07:59
--- NOTE | 2018-11-22 08:00 | NUR ---
NURSE NOTES: Received report from Lacy VERAS. Patient is awake alert and oriented x4, sitting up in bed, no acute distress noted. Left knee dressing clean, dry, intact. Patient is on room air. Reporting no pain at this time. Walker at bedside. Patient educated to fall for assistance before getting out of bed. Side rails upx3, bed low and locked, call light in reach. Will continue to monitor.
--- NOTE | 2018-11-22 08:36 | NUR ---
DISCHARGE PLANNING PATIENT WAS REFERRED TO [facility] YESTERDAY. [facility] HAS BEEN WORKING ON OBTAINING CERTIFICATION FOR ADMISSION TO [facility] THE CERTIFICATION THAT WAS PROVIDED BY THE WORKERS COMP WAS FOR LONGTERM NOT ARU ONCE VINNIE OBTAINS AUTHORIZATION PATIENT WILL BE ACCEPTED Addendum: 11/22/18 at 0846 by WELLINGTON ENNIS LVN LVN [facility]# [id number] DOI [birth year] CHELSIE NEWMAN T: [phone] [id number] F: [phone] UR FAX [phone]
--- NOTE | 2018-11-22 08:50 | NUR ---
NURSE NOTES: Noted patient has swelling and warmth in left calf, but patient reports no pain. Measured calf circumference in right and left calf. Left calf is 18 and 3/4 inches, right calf is 17 and 1/4 inches. Called DEMETRA Jacobs and left LAURA reporting findings. Awaiting callback with further orders. Will continue to monitor.
--- NOTE | 2018-11-22 09:27 | NUR ---
NURSE NOTES: Received callback from office of DEMETRA Jacobs. Received order for STAT venous duplex of left lower extremity to rule out DVT. PA ordered to review results with Dr. Rivera. PA also ordered to review med reconciliation with Dr. Rivera prior to discharge. Will enter order and continue to monitor.
[2018-11-22] MEDS: oxyCONTIN 20mg tab ORAL SCH ×2 (09:36→20:30)
[2018-11-22] MEDS: Docusate 100mg cap ORAL SCH ×3 (09:36→18:12)
[2018-11-22] MEDS: celeBREX 200mg Cap **SURGERY PATIENTS ONLY ORAL SCH (09:37)
[2018-11-22] MEDS: Enoxaparin 30mg Inj SUBQ SCH ×2 (09:38→20:48)
--- NOTE | 2018-11-22 09:49 | NUR ---
NURSE NOTES: Called vascular lab and spoke with Jessica who reports she will be up soon to scan lower leg. Will continue to monitor.
--- NOTE | 2018-11-22 10:46 | NUR ---
NURSE NOTES: Called Dr. Rivera and informed MD that patient is positive for acute DVT in left leg. MD ordered for bedrest, cancel PT and CPM, cancel discharge, IVF, and keep patient NPO. Orders entered, will carry out and update patient on plan of care.
--- NOTE | 2018-11-22 11:15 | NUR ---
DISCHARGE PLANNING Discharge order noted Patient has been referred to [facility] Await Acceptance and Room Number Addendum: 11/22/18 at 1122 by JEFFERSON DINERO CM Kristofer is currently on hold.
[2018-11-22] MEDS ORDERED: Lidocaine 1% Plain 30 ml INJ PRN (11:30)
--- NOTE | 2018-11-22 11:50 | NUR ---
NURSE NOTES: Called Dr. Rivera and reported that patient is reporting mild chest pain when taking deep breaths. Patient otherwise stable with stable VS. Dr. Rivera gave orders and ordered to change IVC filter placement to STAT. Orders entered, will carry out and continue to monitor. Charge nurse and nursing supervisor [place] [employer] aware. Addendum: 11/22/18 at 1207 by Eladia Penny RN Add: Dr. Rivera declined to transfer the patient to telemetry.
--- NOTE | 2018-11-22 12:08 | NUR ---
NURSE NOTES: Patient taken down for procedure by cherrie Thapa.
[2018-11-22] MEDS ORDERED: Isovue-300 100ml vial INJ PRN (12:15)
[2018-11-22 12:24] LABS: ANION GAP 8 mmol/L (5-15); BLOOD UREA NITROGEN 16 mg/dL (7-18); CALCIUM 8.7 MG/DL (8.5-10.1); CARBON DIOXIDE 31 MMOL/L (21-32); CHLORIDE 101 MMOL/L (98-107); POTASSIUM 3.6 MMOL/L (3.5-5.1); SODIUM 139 MMOL/L (136-145)
[2018-11-22] MEDS ORDERED: Heparin1,000 units/500ml Premix(Conc:2 units/ml) INJ PRN (12:30)
--- NOTE | 2018-11-22 13:18 | Pre-Procedure Note/Attestation ---
Pre-Procedure Note/Attestation Complete Prior to Procedure Planned Procedure: not applicable Procedure Narrative: IVC filter placement Indications for Procedure Pre-Operative Diagnosis: DVT, unable to anticoagulate due to recent surgery Attestation I attest that I discussed the nature of the procedure; its benefits; risks and complications; and alternatives (and the risks and benefits of such alternatives ), prior to the procedure, with the patient (or the patient's legal appeals representative). I attest that I re-evaluated the patient just prior to the surgery and that there has been no change in the patient's H&P, except as documented below: Franco Cifuentes M.D. Nov 22, 2018 13:18
--- NOTE | 2018-11-22 13:54 | NUR ---
PT NOTE: Pt unable to participate in PT treatment session due to positive L LE DVT. Will hold PT treatment until MD clears patient for PT. Will communicate with nurse for pt status.
--- NOTE | 2018-11-22 14:10 | Diagnostic Imaging Report ---
Indication: Deep venous thrombosis. Planned IVC filter. CT abdomen to assess venous anatomy given imaging limitations of the current angiography suite. Technique: CT of the abdomen and pelvis utilizing automated exposure control with intravenous contrast. Venous scanning performed. Axial, sagittal and coronal reformats presented. CT dose: Total DLP 1402.9 mGycm; CTDI vol 26.15 mGy Comparison: None Findings: Imaged lung bases are clear. Heart size within normal limits. No pericardial effusion. Liver, gallbladder, spleen, adrenal glands and pancreas unremarkable. Kidneys enhance symmetrically. No urinary tract stone or hydronephrosis. Bladder is decompressed with apparent wall thickening likely related to underdistention. Prostate is borderline enlarged with coarse central calcifications. Seminal vesicles unremarkable in appearance. Imaged portions of the penis unremarkable. There is no free intraperitoneal air or fluid. Patient status post gastric bypass. There is no evidence of bowel obstruction or definite inflammatory changes in the mesentery. No pathologically enlarged lymphadenopathy. Abdominal aorta is normal in caliber. Inferior vena cava is normal in caliber. No evidence of caval thrombosis. No variant renal venous anatomy is identified. There is a tiny fat-containing umbilical hernia. Some foci of subcutaneous gas noted in the subcutaneous tissues of the lower anterior abdominal wall which are likely related to subcutaneous medication injection. Mild degenerative changes are noted in the spine. No acute osseous abnormality identified. IMPRESSION: Patent inferior vena cava. No evidence of duplicated cava, megacava or other caval anomaly. No variant renal venous anatomy identified. Apparent bladder wall thickening likely related to underdistention. Correlate with urinalysis to exclude cystitis. Incidental findings as above. The CT scanner at [facility] is accredited by the [employer] and the scans are performed using protocols designed to limit radiation exposure to as low as reasonably achievable to attain images of sufficient resolution adequate for diagnostic evaluation.
--- NOTE | 2018-11-22 14:28 | NUR ---
NURSE NOTES: Patient returned from IVC filter placement, right EJ dressing clean, dry, intact. Received report from Jose Enrique VERAS. Patient is in stable condition at this time, not reporting shortness of breath. hydraulic controls technician at the bedside performing EKG and 2D echo as ordered. Will continue to monitor and contact MD pending results of cardiac tests.
--- NOTE | 2018-11-22 14:47 | NUR ---
NURSE NOTES: Received call from Dr. Rivera. Informed MD that patient had IVC filter placed and is back on floor. MD ordered for VQ scan today to rule out PE due to intermittent chest pain. stated patient may ambulate 4 hours after IVC filter placement. MD stated patient may resume physical therapy tomorrow. MD stated patient may eat and to d/c IV fluids. Will carry out as ordered and continue to monitor. Addendum: 11/22/18 at 1530 by Eladia Penny RN NURSE NOTES: Add: Recommended to Dr. Rivera that patient be transferred to [facility], Dr. Rivera ordered for patient to stay on Med/Surg. Will continue to monitor. Addendum: 11/22/18 at 1732 by Eladia Penny RN Add: Informed Dr. Rivera of EKG results. No further orders regarding EKG.
--- NOTE | 2018-11-22 14:54 | NUR ---
NURSE NOTES: Called the office of Dr. Wang and left voicemail for MD with update on patient's status and to inform that patient had IVC filter placed. Awaiting callback from MD. Will continue to monitor.
--- NOTE | 2018-11-22 15:48 | Diagnostic Imaging Report ---
Clinical history: DVT. Status post recent orthopedic surgery. Unable to give anticoagulation. Crest made for retrievable IVC filter placement. Total fluoroscopy time: 145.3 seconds Total fluoroscopy dose: 70.8 mGy Estimated blood loss: Less than 2 mL Complications: None immediate Technique and findings: Procedure discussed at length with the patient including technical aspects of the procedure, risks and potential benefits of the procedure. Potential risks discussed included bleeding, infection, contrast-induced allergies/nephrotoxicity toxicity. Also discussed filter-related complications including caval thrombosis, filter fracture, filter migration. Also discussed retrievable versus permanent filters. Retrievable filter was selected. The additional risk of inability to remove the filter in the future was also discussed. We also discussed the need for prompt filter removal as success in removing filters decreased the longer they stay in. Patient understood, asking appropriate questions. Informed consent obtained. Patient positioned supine on the table and the right neck was prepped and draped in the usual sterile fashion, including usage sterile ultrasound probe cover and sterile ultrasound gel. Preprocedure timeout was performed, as per protocol. The right internal jugular vein was assessed with ultrasound, demonstrated a patent and compressible internal jugular vein. Appropriate access site was chosen and local anesthetic 1% lidocaine. A small dermatotomy made. The right internal jugular vein was accessed under real-time ultrasound guidance utilizing a 21-gauge needle. Sonographic images of needle access stored. Microwire advanced and exchange made over the wire for a micropuncture sheath. Inner dilator and microwire removed and a Bentson wire was advanced across the heart into the inferior vena cava. The tract was serially dilated followed by placement of the introducer sheath for the argon option IVC filter. Contrast injected via the sheath and digital subtraction venogram was obtained. The filter was then advanced and deployed below the level of the renal vein inflow, above the level of the iliac venous confluence. Completion image was obtained. All devices were removed and hemostasis was easily achieved at the right internal jugular vein access site with manual compression. A sterile dressing was applied. The patient tolerated the procedure well and left the department stable condition. IMPRESSION: Successful placement of infrarenal IVC filter as detailed above. Note that this is a retrievable filter and patient should be referred for filter removal as soon as medically possible.
--- NOTE | 2018-11-22 16:23 | NUR ---
NURSE NOTES: Patient taken down for VQ scan by transporter.
--- NOTE | 2018-11-22 17:22 | Diagnostic Imaging Report ---
Indication: Chest pain Technique: A ventilation/perfusion scan was performed. Ventilation was performed utilizing 30 mCi of Technetium 99m-DTPA. Perfusion was performed with 5 mCi of technetium 99m-MAA injected intravenously. Multiple side by side projections obtained. Findings: There is central clumping of radiotracer on ventilation images. There is expected photopenia in the region of the cardiac shadow. There is some asymmetric areas of photopenia in the left lung with possible mismatch defects. IMPRESSION: Low to intermediate probability for pulmonary embolism. Recommend more sensitive evaluation with CT angiogram of the chest.
--- NOTE | 2018-11-22 17:34 | NUR ---
NURSE NOTES: Patient returned from VQ scan in stable condition. Patient is reporting no shortness of breath or chest pain.
--- NOTE | 2018-11-22 18:26 | NUR ---
NURSE NOTES: Left message with Dr. Rivera regarding results of VQ scan. Reached MD's exchange, cartridge loading operator stated MD will be paged and will call back. Awaiting callback from . Will continue to monitor.
--- NOTE | 2018-11-22 18:57 | NUR ---
NURSE NOTES: Dr. Rivera aware of patient's VQ scan. Stated patient may resume CPM machine tonight and to schedule daily labs for the next 3 days. Orders entered. Will continue to monitor.
--- NOTE | 2018-11-22 18:59 | Critical Care Progress Note ---
Assessment/Plan Status Narrative s/p totla knee arthroplasty hypwertension acute DVT Likely Pulmonary embolism Assessment/Plan plan ok to have pt and cpm now that has IVC filter on low dose anticoagulaiton wiht lovenox 3 bid he can not have full anticoagulaiton due to hemarthrosis will monitor alia within 2-[address] xarelto and follow Critical Care - Subjective Interval Events: had leg pain had ches tpainand sob had venous douplex noted to have femoral vein thrombosis acute then had to talk to interventional radiologist to place a filter then had vq scan noted to have low intermidiate probability however high clinical suspicion. doing well now I&O: Intake and Output 11/21/18 11/22/18 19:00 07:00 Intake Total 1500 ml 240 ml Output Total 900 ml Balance 1500 ml -660 ml Intake Oral 1500 ml 240 ml Output Urine Total 900 ml # Bowel Movements 1 Critical Care - Objective Last 24 Hour Vital Signs Date Time Temp Pulse Resp B/P (MAP) Pulse Ox O2 Delivery O2 Flow Rate FiO2 11/22/18 16:00 99.4 83 20 139/69 (92) 100 11/22/18 13:40 86 20 127/71 (89) 99 11/22/18 13:35 85 20 137/71 (93) 99 11/22/18 13:30 87 20 136/73 (94) 100 11/22/18 13:25 81 20 134/64 (87) 100 11/22/18 13:02 18 18 11/22/18 12:00 98.7 82 19 121/74 (90) 100 11/22/18 10:06 97.4 11/22/18 09:00 Room Air 11/22/18 08:00 97.4 98 19 117/74 (88) 99 11/22/18 04:00 99.3 73 18 132/80 (97) 96 11/22/18 00:00 98.1 87 17 143/72 (95) 97 11/21/18 21:00 Room Air Room Air 11/21/18 20:00 99.2 89 17 124/71 (88) 99 Status: awake Neck: other - has a dressing fo rivc filter procedure. Lungs: clear Heart: normal rate, regular rhythm Abdomen: soft, non-tender Extremities: other - no clubbing Jeff Rivera MD Nov 22, 2018 18:59
--- NOTE | 2018-11-22 19:43 | NUR ---
NURSE NOTES: Patient in bed awake and oriented. VSS. No SOB noted. Dressing is dry and intact. Left calf is still visibly bigger than the right. Hot to touch. No pain at this time. Needs attended. Call light within reach. In stable condition.
--- NOTE | 2018-11-22 19:46 | NUR ---
HAND-OFF: Report given to Edson VERAS. Patient is in stable condition.
[2018-11-23] VITALS: BP 125/74
[2018-11-23 04:00] VITALS: BP 121/76
[2018-11-23 06:20] LABS: EOSINOPHILS % (AUTO) 2.2 % (0.0-3.0); HEMATOCRIT 27.9 % (42.0-52.0); HEMOGLOBIN 9.3 G/DL (14.2-18.0); LYMPHOCYTES % (AUTO) 22.2 % (20.0-45.0); MEAN CORPUSCULAR VOLUME 94 FL (80-99); MONOCYTES % (AUTO) 7.9 % (1.0-10.0); NEUTROPHILS % (AUTO) 66.6 % (45.0-75.0); PLATELET COUNT 205 K/UL (150-450); RED BLOOD COUNT 2.96 M/UL (4.70-6.10); RED CELL DISTRIBUTION WIDTH 12.5 % (11.6-14.8); WHITE BLOOD COUNT 4.3 K/UL (4.8-10.8)
[2018-11-23 06:44] LABS: ALANINE AMINOTRANSFERASE 18 U/L (12-78); ALBUMIN 2.6 G/DL (3.4-5.0); ALBUMIN/GLOBULIN RATIO 0.7 (1.0-2.7); ALKALINE PHOSPHATASE 44 U/L (46-116); ANION GAP 6 mmol/L (5-15); ASPARTATE AMINO TRANSFERASE 16 U/L (15-37); BILIRUBIN,TOTAL 0.6 MG/DL (0.2-1.0); BLOOD UREA NITROGEN 16 mg/dL (7-18); CALCIUM 8.6 MG/DL (8.5-10.1); CARBON DIOXIDE 32 MMOL/L (21-32); CHLORIDE 102 MMOL/L (98-107); CREATININE 0.9 MG/DL (0.55-1.30); POTASSIUM 3.7 MMOL/L (3.5-5.1); SODIUM 140 MMOL/L (136-145)
--- NOTE | 2018-11-23 07:07 | NUR ---
NURSE NOTES: Report left for Angelica VERAS. Left leg still red, with swelling and hot to touch. No pain at site. No SOB. In stable condition.
--- NOTE | 2018-11-23 07:50 | NUR ---
NURSE NOTES: Patient is in bed awake and able to verbalize needs. Stable with no s/s acute distress. Patient complains of pain, will administer pain medication as ordered. Patient encouraged to use call light for assistance, verbalized understanding. All needs met at this time. Patient in good spirits with call light within reach, will continue to monitor.
[2018-11-23 08:00] VITALS: BP 104/51
[2018-11-23] MEDS: celeBREX 200mg Cap **SURGERY PATIENTS ONLY ORAL SCH (08:35)
[2018-11-23] MEDS: Docusate 100mg cap ORAL SCH ×3 (08:35→18:00)
[2018-11-23] MEDS: oxyCONTIN 20mg tab ORAL SCH ×2 (08:36→20:28)
[2018-11-23] MEDS: Enoxaparin 30mg Inj SUBQ SCH ×2 (08:38→20:28)
[2018-11-23 12:00] VITALS: BP 121/69
--- NOTE | 2018-11-23 14:47 | General Progress Note ---
Assessment/Plan Assessment: s/p tkr post op dvt and pe anemia hypertension Plan: RESUMED PT RESUMED OT RESUMED CPM ON LOVENOX LOW DOSE IN COUPLE OF WEEKS WILL SWITCH TO XARELTO DISCUISSED WITHPATIENT ATLENGHT Diagnoses [place] I: OK TO DC HOME IN AM Subjective Date patient seen: Nov 23, 2018 Time patient seen: 14:45 Allergies: Coded Allergies: NEOMYCIN (Unverified Allergy, Unknown, 11/19/18) POLYMYXIN B (Unverified Allergy, Unknown, 11/19/18) Uncoded Allergies: ANTIBIOTICS NEOMYCIN- POLYMYXIN (Allergy, Unknown, 11/19/18) Subjective doing better no fever nochills Objective Last 24 Hour Vital Signs Date Time Temp Pulse Resp B/P (MAP) Pulse Ox O2 Delivery O2 Flow Rate FiO2 11/23/18 12:00 98.1 77 20 121/69 (86) 98 11/23/18 09:00 Room Air 11/23/18 08:00 98.4 82 20 104/51 (68) 96 11/23/18 04:00 99.3 78 18 121/76 (91) 95 11/23/18 00:00 98.7 79 18 125/74 (91) 96 11/22/18 21:00 Room Air 11/22/18 20:00 100.0 83 20 138/72 (94) 95 11/22/18 18:43 99.4 11/22/18 16:00 99.4 83 20 139/69 (92) 100 Intake and Output 11/22/18 11/23/18 19:00 07:00 Intake Total 1600 ml Output Total 325 ml Balance 1600 ml -325 ml Intake Oral 1500 ml IV Total 100 ml Output Urine Total 325 ml # Voids 3 Laboratory Tests 11/23/18 04:55: White Blood Count 4.3L, Red Blood Count 2.96L, Hemoglobin 9.3L, Hematocrit 27.9L , Mean Corpuscular Volume 94, Mean Corpuscular Hemoglobin 31.4H, Mean Corpuscular Hemoglobin Concent 33.3, Red Cell Distribution Width 12.5, Platelet Count 205, Mean Platelet Volume 6.2L, Neutrophils (%) (Auto) 66.6, Lymphocytes ( %) (Auto) 22.2, Monocytes (%) (Auto) 7.9, Eosinophils (%) (Auto) 2.2, Basophils (%) (Auto) 1.0, Sodium Level 140, Potassium Level 3.7, Chloride Level 102, Carbon Dioxide Level 32, Anion Gap 6, Blood Urea Nitrogen 16, Creatinine 0.9, Estimat Glomerular Filtration Rate > 60, Glucose Level 82, Calcium Level 8.6, Total Bilirubin 0.6, Aspartate Amino Transf (AST/SGOT) 16, Alanine Aminotransferase (ALT/SGPT) 18, Alkaline Phosphatase 44L, Total Protein 6.3L, Albumin 2.6L, Globulin 3.7, Albumin/Globulin Ratio 0.7L Height (Feet): 6 Height (Inches): 0.00 Weight (Pounds): 260 General Appearance: WD/WN Neck: non-tender Cardiovascular: normal rate, regular rhythm, no JVD Respiratory/Chest: lungs clear Abdomen: soft Jeff Rivera MD Nov 23, 2018 14:46
--- NOTE | 2018-11-23 15:30 | Cardiology Report ---
APPROVED REPORT EXAM: Two-dimensional and M-mode echocardiogram with Doppler and color Doppler. INDICATION Chest Pain M-Mode DIMENSIONS IVSd1.2 (0.7-1.1cm)Left Atrium (MM)3.2 (1.6-4.0cm) LVDd5.2 (3.5-5.6cm)Aortic Root3.4 (2.0-3.7cm) PWd1.1 (0.7-1.1cm)Aortic Cusp Exc.2.1 (1.5-2.0cm) IVSs1.4 cm LVDs3.9 (2.5-4.0cm) PWs1.8 cm Normal left ventricular chamber size, systolic function and wall motion. Left ventricular ejection fraction estimated to be 65-70%. Mild left ventricular hypertrophy by 2-D. Small posterior pericardial effusion. Normal left atrial chamber size. Mild right atrial enlargement. Right ventricular chamber size at upper limits of normal. Aortic valve calcification with normal cusp excursion . Mildly thickened mitral valve leaflets with normal excursion. Mild mitral annulus and aortic root calcification. Pulmonic valve not well visualized. IVC at normal size with physiologic collapse . A color flow and spectral Doppler study was performed and revealed: No aortic insufficiency . Normal left ventricular diastolic function . Trace mitral regurgitation. Mild tricuspid regurgitation. Tricuspid systolic velocities suggests peak right ventricular systolic pressure of 40 mmHg,consistent with mild pulmonary hypertension .
[2018-11-23 16:00] VITALS: BP 118/56
--- NOTE | 2018-11-23 16:56 | NUR ---
CASE MANAGEMENT: REVIEW SI: LEFT KNEE ARTHRITIS LEFT KNEE TOTAL ARTHROPLASTY 11/19 T 98.1 HR 77 RR 20 BP 104/51 SAT 98% ROOM AIR WBC 4.3 H/H 9.3/27.9 IS: CELEBREX PO QD LOVENOX SQ Q12HR COLACE PO TID DILAUDID SQ Q3HR MED/SURG STATUS DCP: PATIENT IS FROM HOME
--- NOTE | 2018-11-23 19:20 | NUR ---
NURSE NOTES: Report taken from RITO Dominguez. patient is awake and in bed, A&Ox4. No signs of distress on room air. patient getting 6/10 pain through the Left leg, tender to palpation. Noted swelling through the left leg, minimal pitting, warm to the touch. Patient being treated for DVT, continue to monitor. No skin issues. Lt knee Surgical site c/d/i. IVC filter placed 11/22, surgical cite at Rt anterior cervical c/d/i. IV site c/d/i and patent, no fluids running. patient hoping to get D/C in the am to Rehab. Bed in lowest position, call light within reach.
--- NOTE | 2018-11-23 19:22 | NUR ---
HAND-OFF: Report given to Giancarlo VERAS. patient is stable.
[2018-11-23 20:05] VITALS: BP_SYST 114; BP_SYST 143; BP_DIAS 59; BP_DIAS 83
[2018-11-24] VITALS: BP 124/71
[2018-11-24 04:00] VITALS: BP 109/72
--- NOTE | 2018-11-24 07:46 | NUR ---
HAND-OFF: Report given to RITO Jones. Patient is awake and VS stable. Awaiting bed at Rehab.
[2018-11-24 08:00] VITALS: BP 129/82
--- NOTE | 2018-11-24 08:00 | NUR ---
NURSE NOTES: Received report from Giancarlo VERAS. pt a/a/o x4 laying in bed with no signs of distress or other issues at this time. surgical dressing dry and intact. left leg warm to touch, swollen, edema x1. pt on regular diet, tolerating well with no signs of n/v. IV on the left AC gauge#20 heplock. john light within reach, bed in lowest position, side rales up x2. plan to transfer to ARU/SNF once bed becomes available. I will f/u as needed.
[2018-11-24 08:16] LABS: BASOPHILS % (AUTO) 1.4 % (0.0-2.0); EOSINOPHILS % (AUTO) 2.8 % (0.0-3.0); HEMATOCRIT 28.5 % (42.0-52.0); HEMOGLOBIN 9.5 G/DL (14.2-18.0); LYMPHOCYTES % (AUTO) 28.6 % (20.0-45.0); MEAN CORPUSCULAR VOLUME 93 FL (80-99); MONOCYTES % (AUTO) 9.5 % (1.0-10.0); NEUTROPHILS % (AUTO) 57.7 % (45.0-75.0); PLATELET COUNT 246 K/UL (150-450); RED BLOOD COUNT 3.06 M/UL (4.70-6.10); RED CELL DISTRIBUTION WIDTH 12.2 % (11.6-14.8); WHITE BLOOD COUNT 3.9 K/UL (4.8-10.8)
[2018-11-24 08:42] LABS: ALANINE AMINOTRANSFERASE 21 U/L (12-78); ALBUMIN 2.8 G/DL (3.4-5.0); ALBUMIN/GLOBULIN RATIO 0.7 (1.0-2.7); ALKALINE PHOSPHATASE 47 U/L (46-116); ANION GAP 8 mmol/L (5-15); ASPARTATE AMINO TRANSFERASE 17 U/L (15-37); BILIRUBIN,TOTAL 0.9 MG/DL (0.2-1.0); BLOOD UREA NITROGEN 16 mg/dL (7-18); CALCIUM 8.9 MG/DL (8.5-10.1); CARBON DIOXIDE 32 MMOL/L (21-32); CHLORIDE 98 MMOL/L (98-107); POTASSIUM 3.7 MMOL/L (3.5-5.1); SODIUM 138 MMOL/L (136-145)
[2018-11-24] MEDS: Docusate 100mg cap ORAL SCH ×3 (09:11→16:55)
[2018-11-24] MEDS: celeBREX 200mg Cap **SURGERY PATIENTS ONLY ORAL SCH (09:11)
[2018-11-24] MEDS: oxyCONTIN 20mg tab ORAL SCH ×2 (09:12→20:25)
[2018-11-24] MEDS: Enoxaparin 30mg Inj SUBQ SCH ×2 (09:12→20:26)
[2018-11-24 12:00] VITALS: BP 142/67
[2018-11-24 16:00] VITALS: BP 124/65
[2018-11-24] MEDS: HYDROcodone/Acetamin 5/325 tab ORAL PRN (16:55)
--- NOTE | 2018-11-24 19:30 | NUR ---
NURSE NOTES: Report taken from RITO Jones. patient is awake and ambulating, A&Ox4. No signs of distress on room air. Is having some pain central to the surgical incision, 6/10. Swelling and warmth noted in the left calf, no pain with movement or palpation. IV c/d/i, no fluids running, will remove upon D/C. Surgical site c/d/i, would like to change in the am. No further skin issues. Awaiting placement at rehab. Continue to monitor, call light within reach.
--- NOTE | 2018-11-24 19:46 | NUR ---
HAND-OFF: Report given to Giancarlo VERAS, pt in stable condition.
[2018-11-24 20:00] VITALS: BP 109/71
[2018-11-25] VITALS: BP 100/61
[2018-11-25 04:00] VITALS: BP 126/73
[2018-11-25 07:10] LABS: BASOPHILS % (AUTO) 1.5 % (0.0-2.0); EOSINOPHILS % (AUTO) 3.1 % (0.0-3.0); HEMATOCRIT 28.6 % (42.0-52.0); HEMOGLOBIN 9.5 G/DL (14.2-18.0); LYMPHOCYTES % (AUTO) 25.7 % (20.0-45.0); MEAN CORPUSCULAR VOLUME 94 FL (80-99); MONOCYTES % (AUTO) 9.9 % (1.0-10.0); NEUTROPHILS % (AUTO) 59.8 % (45.0-75.0); PLATELET COUNT 268 K/UL (150-450); RED BLOOD COUNT 3.05 M/UL (4.70-6.10); RED CELL DISTRIBUTION WIDTH 12.2 % (11.6-14.8); WHITE BLOOD COUNT 3.7 K/UL (4.8-10.8)
[2018-11-25 07:24] LABS: ALANINE AMINOTRANSFERASE 22 U/L (12-78); ALBUMIN 2.7 G/DL (3.4-5.0); ALBUMIN/GLOBULIN RATIO 0.7 (1.0-2.7); ALKALINE PHOSPHATASE 47 U/L (46-116); ANION GAP 6 mmol/L (5-15); ASPARTATE AMINO TRANSFERASE 19 U/L (15-37); BILIRUBIN,TOTAL 0.8 MG/DL (0.2-1.0); BLOOD UREA NITROGEN 15 mg/dL (7-18); CALCIUM 8.9 MG/DL (8.5-10.1); CARBON DIOXIDE 32 MMOL/L (21-32); CHLORIDE 102 MMOL/L (98-107); POTASSIUM 4.1 MMOL/L (3.5-5.1); SODIUM 140 MMOL/L (136-145)
--- NOTE | 2018-11-25 07:44 | NUR ---
HAND-OFF: Report given to RITO Jiang. Patient is awake and VS stable.
--- NOTE | 2018-11-25 07:53 | NUR ---
NURSE NOTES: Pt awake. Able to verbalize known needs. Call light is in reach. Breathing room air. Current plan of care will be followed
[2018-11-25 08:00] VITALS: BP 139/84
[2018-11-25] MEDS: celeBREX 200mg Cap **SURGERY PATIENTS ONLY ORAL SCH (08:57)
[2018-11-25] MEDS: oxyCONTIN 20mg tab ORAL SCH ×2 (08:59→20:53)
[2018-11-25] MEDS: Enoxaparin 30mg Inj SUBQ SCH ×2 (09:00→20:54)
[2018-11-25] MEDS: Docusate 100mg cap ORAL SCH ×3 (09:01→18:00)
--- NOTE | 2018-11-25 10:43 | NUR ---
CASE MANAGEMENT:REVIEW 11/25/18 SI: POD #6 LEFT KNEE TOTAL ARTHROPLASTY. ACUTE DVT *IVC FILTER PLACED ON 11/22/18 99.0 75 18 126/73 95% ON RA H/H-9.5/28.6 IS: LOVENOX SQ Q12 DILAUDID SQ Q3HRS PRN : MED/SURG STATUS 3 EAST
[2018-11-25 12:00] VITALS: BP 133/80
--- NOTE | 2018-11-25 13:24 | NUR ---
NURSE NOTES: Pt required pt teaching for bringing home medications. Per pt took Miralax, pt informed that Miralax is on hand and that could be ordered .
[2018-11-25 16:00] VITALS: BP 141/74
--- NOTE | 2018-11-25 16:25 | NUR ---
NURSE NOTES: Pt refused iron and stool softener risk and benefits explained. " I know my body and I know what works" Call light is in reach.
--- NOTE | 2018-11-25 17:02 | NUR ---
NURSE NOTES: Ice pack given for knee . Per request of pt/. Call light in reach.
--- NOTE | 2018-11-25 17:36 | NUR ---
NURSE NOTES:RECEIVED REPORT FR. FRANCISCO VERAS.RE:CONTINUITY OF CARE.PATIENT STABLE. WATCHING TV.WILL CONTINUE PLAN OF CARE. MESSAGE LEFT TO WELLINGTON BARRAT [phone] RE:TRANSFER TO REHAB UPDATE.
--- NOTE | 2018-11-25 17:36 | NUR ---
NURSE NOTES: Report given to Krisatn , [facility]
--- NOTE | 2018-11-25 19:23 | Internal Med Progress Note ---
Subjective Date of Service: Nov 25, 2018 Physician Name Oskar Crowley Attending Physician Edson Wang MD Current Medications Medications (Trade) Dose Ordered Sig/Jeremy Route PRN Reason Start Time Stop Time Status Last Admin Dose Admin Acetaminophen (Tylenol) 650 mg Q4H PRN ORAL temp>100.2 or headache 11/19/18 13:00 12/19/18 12:59 Acetaminophen/ Hydrocodone Bitart ([place] 5/325) 2 tab Q4H PRN ORAL pain scores 4-10 11/19/18 12:00 11/26/18 11:59 11/24/18 16:55 Acetaminophen/ Hydrocodone Bitart ([place] 7.5/325) 1 tab Q4H PRN ORAL Mild Pain (Pain Scale 1-3) 11/19/18 12:00 11/26/18 11:59 11/21/18 18:04 Celecoxib (CeleBREX) 200 mg DAILY ORAL 11/20/18 09:00 12/20/18 08:59 11/25/18 08:57 Docusate Sodium (Colace) 100 mg THREE TIMES A DAY ORAL 11/19/18 13:00 12/19/18 12:59 11/25/18 09:01 Enoxaparin Sodium (Lovenox) 30 mg EVERY 12 HOURS SUBQ 11/19/18 21:00 12/19/18 20:59 11/25/18 09:00 Ferrous Sulfate (Feosol) 325 mg THREE TIMES A DAY ORAL 11/19/18 13:00 12/19/18 12:59 11/25/18 09:01 Hydromorphone HCl (Dilaudid) 1 mg Q4H PRN SUBQ Mild Pain (Pain Scale 1-3) 11/19/18 12:00 11/26/18 11:59 Hydromorphone HCl (Dilaudid) 2 mg Q3H PRN SUBQ Severe Pain (Pain Scale 7-10) 11/19/18 12:00 11/26/18 11:59 11/20/18 19:42 Hydromorphone HCl (Dilaudid) 2 mg Q4H PRN SUBQ Moderate Pain (Pain Scale 4-6) 11/19/18 12:00 11/26/18 11:59 Magnesium Hydroxide (Mom) 30 ml DAILYPRN PRN ORAL Constipation 11/19/18 12:00 12/19/18 11:59 Ondansetron HCl (Zofran) 4 mg Q6H PRN IVP Nausea & Vomiting 11/19/18 12:00 12/19/18 11:59 Oxycodone HCl (OxyCONTIN) 20 mg EVERY 12 HOURS ORAL 11/19/18 12:00 11/26/18 11:59 11/25/18 08:59 Temazepam (Restoril) 15 mg HSPRN PRN ORAL Insomnia 11/19/18 21:00 11/26/18 20:59 11/21/18 03:52 Allergies: Coded Allergies: NEOMYCIN (Unverified Allergy, Unknown, 11/19/18) POLYMYXIN B (Unverified Allergy, Unknown, 11/19/18) Uncoded Allergies: ANTIBIOTICS NEOMYCIN- POLYMYXIN (Allergy, Unknown, 11/19/18) ROS Limited/Unobtainable: No Constitutional: Reports: no symptoms HEENT: Reports: no symptoms Cardiovascular: Reports: no symptoms Respiratory: Reports: no symptoms Gastrointestinal/Abdominal: Reports: no symptoms Genitourinary: Reports: no symptoms Neurologic/Psychiatric: Reports: no symptoms Subjective 53 YO M admitted for Left knee osteoarhritis. S/P left knee total arthroplasty . Now acute DVT left leg. S/P IVC filter 11/22/18. Cover for Cary Moreno-DR Rivera Objective Last Vital Signs Date Time Temp Pulse Resp B/P (MAP) Pulse Ox O2 Delivery O2 Flow Rate FiO2 11/25/18 16:00 98.2 85 20 141/74 (96) 11/25/18 12:00 100 11/25/18 09:00 Room Air 11/20/18 07:15 General Appearance: WD/WN, no apparent distress, alert EENT: PERRL/EOMI, normal ENT inspection, TMs normal Neck: non-tender, normal alignment, supple, normal inspection Cardiovascular: normal peripheral pulses, normal rate, regular rhythm, no gallop/murmur, no JVD Respiratory/Chest: chest wall non-tender, lungs clear, normal breath sounds, no respiratory distress, no accessory muscle use Abdomen: normal bowel sounds, non tender, soft, no organomegaly, no mass Extremities: normal range of motion, non-tender Neurologic: hand blocker II-XII grossly normal, no motor/sensory deficits Skin: normal pigmentation, warm/dry Laboratory Tests Test 11/25/18 05:05 White Blood Count 3.7 K/UL (4.8-10.8) L Red Blood Count 3.05 M/UL (4.70-6.10) L Hemoglobin 9.5 G/DL (14.2-18.0) L Hematocrit 28.6 % (42.0-52.0) L Mean Corpuscular Volume 94 FL (80-99) Mean Corpuscular Hemoglobin 31.0 PG (27.0-31.0) Mean Corpuscular Hemoglobin Concent 33.1 G/DL (32.0-36.0) Red Cell Distribution Width 12.2 % (11.6-14.8) Platelet Count 268 K/UL (150-450) Mean Platelet Volume 5.5 FL (6.5-10.1) L Neutrophils (%) (Auto) 59.8 % (45.0-75.0) Lymphocytes (%) (Auto) 25.7 % (20.0-45.0) Monocytes (%) (Auto) 9.9 % (1.0-10.0) Eosinophils (%) (Auto) 3.1 % (0.0-3.0) H Basophils (%) (Auto) 1.5 % (0.0-2.0) Sodium Level 140 MMOL/L (136-145) Potassium Level 4.1 MMOL/L (3.5-5.1) Chloride Level 102 MMOL/L (98-107) Carbon Dioxide Level 32 MMOL/L (21-32) Anion Gap 6 mmol/L (5-15) Blood Urea Nitrogen 15 mg/dL (7-18) Creatinine 1.0 MG/DL (0.55-1.30) Estimat Glomerular Filtration Rate > 60 mL/min (>60) Glucose Level 80 MG/DL (74-106) Calcium Level 8.9 MG/DL (8.5-10.1) Total Bilirubin 0.8 MG/DL (0.2-1.0) Aspartate Amino Transf (AST/SGOT) 19 U/L (15-37) Alanine Aminotransferase (ALT/SGPT) 22 U/L (12-78) Alkaline Phosphatase 47 U/L (46-116) Total Protein 6.8 G/DL (6.4-8.2) Albumin 2.7 G/DL (3.4-5.0) L Globulin 4.1 g/dL Albumin/Globulin Ratio 0.7 (1.0-2.7) L Intake and Output 11/24/18 11/25/18 19:00 07:00 Intake Total 1200 ml 800 ml Balance 1200 ml 800 ml Intake Oral 1200 ml 800 ml # Voids 3 3 Assessment/Plan Problem List: (1) Osteoarthritis of left knee Assessment & Plan: S/P total left knee arthroplasty on 11/19/18. See ortho note (2) Deep venous thrombosis of distal end of left lower extremity Assessment & Plan: S/P IVC 11/22/18. V/Q=low to intermed prob pulm embolus Oskar Crowley MD Nov 25, 2018 19:22
--- NOTE | 2018-11-25 19:25 | NUR ---
HAND-OFF: Report given to JAYCE VERAS.PATIENT STABLE.
--- NOTE | 2018-11-25 19:27 | NUR ---
NURSE NOTES: Report taken from RITO Rushing. Patient is awake and in bed, AOx4. No signs of distress on room air. Stated that he accidentally hit his knee getting out of bed earlier, has had dull constant pain since, 02/12. Left leg is still swollen, slight pitting edema, and warm to the touch. No complaints about calf pain with palpation. St[facility] that [facility] [place] manag[place] to approve transfer. Skin is c/d/i. IV site c/d/i and patent, no fluid running. Bed in lowest position, call light within reach.
[2018-11-25 20:00] VITALS: BP 113/57
[2018-11-25] MEDS: HYDROcodone/Acetamin 5/325 tab ORAL PRN (20:17)
[2018-11-26] VITALS: BP 108/70
[2018-11-26 04:00] VITALS: BP 116/71
--- NOTE | 2018-11-26 07:33 | NUR ---
HAND-OFF: Report given to RITO Nieves. Patient is awake VS stable.
--- NOTE | 2018-11-26 07:39 | NUR ---
NURSE NOTES: Pt awake , states he spoke to [place], rehab and spoke to a reprehensive, which stated that paper work still need to be done. Pt informed that Discharge orders are not in place. Follow up made with Roxana by covering nurse yesterday. Current plan of care . Will be followed
[2018-11-26 08:00] VITALS: BP 150/78
[2018-11-26] MEDS: celeBREX 200mg Cap **SURGERY PATIENTS ONLY ORAL SCH (09:35)
[2018-11-26] MEDS: oxyCONTIN 20mg tab ORAL SCH (09:36)
[2018-11-26] MEDS: Enoxaparin 30mg Inj SUBQ SCH ×2 (09:37→21:41)
[2018-11-26] MEDS: Docusate 100mg cap ORAL SCH ×3 (09:38→18:00)
--- NOTE | 2018-11-26 11:16 | NUR ---
RD ASSESSMENT & RECOMMENDATIONS SEE CARE ACTIVITY FOR COMPLETE ASSESSMENT DAILY ESTIMATED NEEDS: Needs based on Surgery 91kg adj 20-25 kcals/kg 0400-2650 total kcals 1-2 g protein/kg 91-182 g total protein 25-30 mL/kg 3979-5192 total fluid mLs NUTRITION DIAGNOSIS: Increased kcal and protein needs r/t surgery as evidenced by s/p total L knee arthroplasty. CURRENT DIET: FAHEEM, CCHO MED, Lactose free PO DIET RECOMMENDATIONS: Lactose Free diet ADDITIONAL RECOMMENDATIONS: 1) Obtain a calibrated bed scale wt -> preferred standing weight as able w/ PT 2) Rodney BID for surgical wound healing
[2018-11-26 12:00] VITALS: BP 134/68
--- NOTE | 2018-11-26 12:33 | NUR ---
CASE MANAGEMENT:REVIEW 11/26/18 SI: POD #7 LEFT KNEE TOTAL ARTHROPLASTY. ACUTE DVT *IVC FILTER PLACED ON 11/22/18 97.6 103 20 150/78 98% ON RA IS: LOVENOX SQ Q12 CELEBREX PO QD IRON PO TID OXYCONTIN PO Q12 : MED/SURG STATUS 3 [facility]
--- NOTE | 2018-11-26 12:42 | NUR ---
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
[2018-11-26 16:00] VITALS: BP 127/65
--- NOTE | 2018-11-26 18:07 | Internal Med Progress Note ---
Subjective Date of Service: Nov 26, 2018 Physician Name Oskar Crowley Attending Physician Edson Wang MD Current Medications Medications (Trade) Dose Ordered Sig/Jeremy Route PRN Reason Start Time Stop Time Status Last Admin Dose Admin Acetaminophen (Tylenol) 650 mg Q4H PRN ORAL temp>100.2 or headache 11/19/18 13:00 12/19/18 12:59 Celecoxib (CeleBREX) 200 mg DAILY ORAL 11/20/18 09:00 12/20/18 08:59 11/26/18 09:35 Docusate Sodium (Colace) 100 mg THREE TIMES A DAY ORAL 11/19/18 13:00 12/19/18 12:59 11/25/18 09:01 Enoxaparin Sodium (Lovenox) 30 mg EVERY 12 HOURS SUBQ 11/19/18 21:00 12/19/18 20:59 11/26/18 09:37 Ferrous Sulfate (Feosol) 325 mg THREE TIMES A DAY ORAL 11/19/18 13:00 12/19/18 12:59 11/25/18 09:01 Magnesium Hydroxide (Mom) 30 ml DAILYPRN PRN ORAL Constipation 11/19/18 12:00 12/19/18 11:59 Ondansetron HCl (Zofran) 4 mg Q6H PRN IVP Nausea & Vomiting 11/19/18 12:00 12/19/18 11:59 Temazepam (Restoril) 15 mg HSPRN PRN ORAL Insomnia 11/19/18 21:00 11/26/18 20:59 11/21/18 03:52 Allergies: Coded Allergies: NEOMYCIN (Unverified Allergy, Unknown, 11/19/18) POLYMYXIN B (Unverified Allergy, Unknown, 11/19/18) Uncoded Allergies: ANTIBIOTICS NEOMYCIN- POLYMYXIN (Allergy, Unknown, 11/19/18) ROS Limited/Unobtainable: No Constitutional: Reports: no symptoms HEENT: Reports: no symptoms Cardiovascular: Reports: no symptoms Respiratory: Reports: no symptoms Gastrointestinal/Abdominal: Reports: no symptoms Genitourinary: Reports: no symptoms Neurologic/Psychiatric: Reports: no symptoms Subjective 53 YO M admitted for Left knee osteoarhritis. S/P left knee total arthroplasty . Now acute DVT left leg. S/P IVC filter 11/22/18. Cover for Int Med-DR Miguel Objective Last Vital Signs Date Time Temp Pulse Resp B/P (MAP) Pulse Ox O2 Delivery O2 Flow Rate FiO2 11/26/18 12:00 98.0 85 16 134/68 (90) 96 11/26/18 09:00 Room Air 11/20/18 07:15 Intake and Output 11/25/18 11/26/18 19:00 07:00 Intake Total 1700 ml 780 ml Balance 1700 ml 780 ml Intake Oral 1700 ml 780 ml # Voids 1 8 Assessment/Plan Problem List: (1) Osteoarthritis of left knee Assessment & Plan: S/P total left knee arthroplasty on 11/19/18. See ortho note (2) Deep venous thrombosis of distal end of left lower extremity Assessment & Plan: S/P IVC 11/22/18. V/Q=low to intermed prob pulm embolus Oskar Crolwey MD Nov 26, 2018 18:07
--- NOTE | 2018-11-26 19:52 | NUR ---
NURSE NOTES: Pt discharge remains pending . Per case management does not have authorization. Pt sister called upset inquiring on what was holding up the discharge. Pt qued if he had any concerns ; " I don't have any questions that is her" Pt refused pt in the afternoon as well as routine iron and colace. Remains in stable condition . Call light is in reach
--- NOTE | 2018-11-26 19:56 | NUR ---
HAND-OFF: Report given to Laurie VERAS made aware of pending discharge to [facility].
--- NOTE | 2018-11-26 19:57 | NUR ---
NURSE NOTES: Received report & pt from RITO Nieves. Pt lying in bed, a&ox4, in room air. No s/s of acute distress & no c/o pain at this time. Surgical dressing C/D/I. IV site intact & S/L'd. Pt requested to have dressing change tomorrow 11/27 @ 0500. Bed in lowest position, call light within reach. Will continue to monitor.
[2018-11-26 20:00] VITALS: BP 117/82
[2018-11-27] VITALS: BP 129/74
[2018-11-27 04:00] VITALS: BP 102/73
--- NOTE | 2018-11-27 05:00 | NUR ---
NURSE NOTES: Changed surgical dressing with 4x4 & tegaderm. No bleeding noted. Pt tolerated very well.
--- NOTE | 2018-11-27 07:30 | NUR ---
HAND-OFF: Report given to RITO Montilla. Pt in stable condition. Rounds done with AM shift RN.
[2018-11-27 08:00] VITALS: BP 114/60
--- NOTE | 2018-11-27 08:06 | NUR ---
NURSE NOTES: Received report from Laurie VERAS. Patient is awake alert and oriented x4, no acute distress noted. Left knee dressing and right EJ dressing clean, dry, intact. Patient is ambulating in room steadily with walker. Reporting pain, will medicate per order. Patient updated on plan of care. Side rails upx3, bed low and locked, call light in reach. Will continue to monitor.
[2018-11-27] MEDS: Enoxaparin 30mg Inj SUBQ SCH ×2 (09:37→20:52)
[2018-11-27] MEDS: Docusate 100mg cap ORAL SCH ×3 (09:42→18:00)
[2018-11-27] MEDS: celeBREX 200mg Cap **SURGERY PATIENTS ONLY ORAL SCH (09:42)
--- NOTE | 2018-11-27 09:50 | NUR ---
CASE MANAGEMENT:REVIEW 11/27/18 SI: POD #8 LEFT KNEE TOTAL ARTHROPLASTY. ACUTE DVT *IVC FILTER PLACED ON 11/22/18 97.3 110 20 114/60 97% ON RA IS: LOVENOX SQ Q12 CELEBREX PO QD IRON PO TID OXYCONTIN PO Q12 : MED/SURG STATUS 3 [facility] PLAN: WAITNG FOR AUTHORIZATION FROM [facility] TO TRANSFER PATIENT TO [facility]
[2018-11-27 12:00] VITALS: BP 126/91
[2018-11-27 16:00] VITALS: BP 120/70
--- NOTE | 2018-11-27 16:01 | NUR ---
NURSE NOTES: Called Dr. Rivera regarding pain medication orders and discharge lovenox order. Dr. Rivera called back and orders were given, will enter. MD ordered to discharge patient once bed is available and inform facility patient will bridge to Xarelto when Lovenox is discontinued.
[2018-11-27] MEDS ORDERED: LOVENOX10 MG SUBQ ×2 (16:12→16:15)
--- NOTE | 2018-11-27 16:24 | NUR ---
DISCHARGE PLANNING WE ARE STILL WAITING FOR LETTER OF AGREEMENT FROM JAMIL TO CRI THIS [employer] SUPERVISOR CONTACTED PATIENTS [employer] LOSS PREVENTION MANAGER ~ [facility] @ [phone] [id number] [facility]# [id number] DOI 04/07/04 [facility] ADJ T: [phone] [id number] F: [phone] JAMIL RISK CRI CONTACT IS AUNDREA T: [phone]
[2018-11-27] MEDS: HYDROcodone/Acetamin 5/325 tab ORAL PRN (16:45)
--- NOTE | 2018-11-27 19:14 | Internal Med Progress Note ---
Subjective Date of Service: Nov 27, 2018 Physician Name Oskar Crowley Attending Physician Edson Wang MD Current Medications Medications (Trade) Dose Ordered Sig/Jeremy Route PRN Reason Start Time Stop Time Status Last Admin Dose Admin Acetaminophen (Tylenol) 650 mg Q4H PRN ORAL temp>100.2 or headache 11/19/18 13:00 12/19/18 12:59 Acetaminophen/ Hydrocodone Bitart ([place] 5/325) 2 tab Q4H PRN ORAL PAIN LEVEL 4-10 11/27/18 16:15 12/04/18 16:14 11/27/18 16:45 Acetaminophen/ Hydrocodone Bitart ([place] 7.5/325) 1 tab Q4H PRN ORAL Mild Pain (Pain Scale 1-3) 11/27/18 16:15 12/04/18 16:14 Celecoxib (CeleBREX) 200 mg DAILY ORAL 11/20/18 09:00 12/20/18 08:59 11/26/18 09:35 Docusate Sodium (Colace) 100 mg THREE TIMES A DAY ORAL 11/19/18 13:00 12/19/18 12:59 11/25/18 09:01 Enoxaparin Sodium (Lovenox) 30 mg EVERY 12 HOURS SUBQ 11/19/18 21:00 12/19/18 20:59 11/27/18 09:37 Ferrous Sulfate (Feosol) 325 mg THREE TIMES A DAY ORAL 11/19/18 13:00 12/19/18 12:59 11/25/18 09:01 Magnesium Hydroxide (Mom) 30 ml DAILYPRN PRN ORAL Constipation 11/19/18 12:00 12/19/18 11:59 Ondansetron HCl (Zofran) 4 mg Q6H PRN IVP Nausea & Vomiting 11/19/18 12:00 12/19/18 11:59 Allergies: Coded Allergies: NEOMYCIN (Unverified Allergy, Unknown, 11/19/18) POLYMYXIN B (Unverified Allergy, Unknown, 11/19/18) Uncoded Allergies: ANTIBIOTICS NEOMYCIN- POLYMYXIN (Allergy, Unknown, 11/19/18) ROS Limited/Unobtainable: No Constitutional: Reports: no symptoms HEENT: Reports: no symptoms Cardiovascular: Reports: no symptoms Respiratory: Reports: no symptoms Gastrointestinal/Abdominal: Reports: no symptoms Genitourinary: Reports: no symptoms Neurologic/Psychiatric: Reports: no symptoms Subjective 53 YO M admitted for Left knee osteoarhritis. S/P left knee total arthroplasty . Now acute DVT left leg. S/P IVC filter 11/22/18. Cover for Cary Moreno-DR Rivera Objective Last Vital Signs Date Time Temp Pulse Resp B/P (MAP) Pulse Ox O2 Delivery O2 Flow Rate FiO2 11/27/18 17:15 98.2 11/27/18 16:00 70 19 120/70 (87) 98 11/27/18 09:00 Room Air 11/20/18 07:15 Intake and Output 11/26/18 11/27/18 18:59 06:59 Intake Total 720 ml 980 ml Balance 720 ml 980 ml Intake Oral 720 ml 980 ml # Voids 2 # Bowel Movements 3 Objective eneral Appearance: WD/WN, no apparent distress, alert EENT: PERRL/EOMI, normal ENT inspection, TMs normal Neck: non-tender, normal alignment, supple, normal inspection Cardiovascular: normal peripheral pulses, normal rate, regular rhythm, no gallop/murmur, no JVD Respiratory/Chest: chest wall non-tender, lungs clear, normal breath sounds, no respiratory distress, no accessory muscle use Abdomen: normal bowel sounds, non tender, soft, no organomegaly, no mass Extremities: normal range of motion, non-tender Neurologic: appeals rn II-XII grossly normal, no motor/sensory deficits Skin: normal pigmentation, warm/dry Assessment/Plan Problem List: (1) Osteoarthritis of left knee Assessment & Plan: S/P total left knee arthroplasty on 11/19/18. See ortho note (2) Deep venous thrombosis of distal end of left lower extremity Assessment & Plan: S/P IVC 11/22/18. V/Q=low to intermed prob pulm embolus Assessment/Plan D/C planning: [facility] Oskar Crowley MD Nov 27, 2018 19:14
--- NOTE | 2018-11-27 19:30 | NUR ---
NURSE NOTES: Received report & pt from IRTO Montilla. Pt lying in bed, a&ox4, in room air. No s/s of acute distress & no c/o pain at this time. Surgical dressing C/D/I. No IV access noted. Bed in lowest position, call light within reach. Will continue to monitor.
--- NOTE | 2018-11-27 19:53 | NUR ---
NURSE NOTES: Pt refused IV start. Explained risks & benefits but still continued to refused. Made Dr. Rivera aware.
[2018-11-27 20:25] VITALS: BP 120/81
[2018-11-28] VITALS (7 sets, daily range): BP systolic 124–146; BP diastolic 69–95
[2018-11-28 07:25] LABS: BASOPHILS % (AUTO) 1.5 % (0.0-2.0); EOSINOPHILS % (AUTO) 3.1 % (0.0-3.0); HEMOGLOBIN 9.6 G/DL (14.2-18.0); LYMPHOCYTES % (AUTO) 31.5 % (20.0-45.0); MEAN CORPUSCULAR VOLUME 93 FL (80-99); MONOCYTES % (AUTO) 8.4 % (1.0-10.0); NEUTROPHILS % (AUTO) 55.5 % (45.0-75.0); PLATELET COUNT 391 K/UL (150-450); RED BLOOD COUNT 3.11 M/UL (4.70-6.10); RED CELL DISTRIBUTION WIDTH 12.5 % (11.6-14.8); WHITE BLOOD COUNT 4.1 K/UL (4.8-10.8)
[2018-11-28 07:29] LABS: ANION GAP 8 mmol/L (5-15); BLOOD UREA NITROGEN 18 mg/dL (7-18); CALCIUM 9.3 MG/DL (8.5-10.1); CARBON DIOXIDE 29 MMOL/L (21-32); CHLORIDE 104 MMOL/L (98-107); POTASSIUM 3.8 MMOL/L (3.5-5.1); SODIUM 141 MMOL/L (136-145)
--- NOTE | 2018-11-28 07:30 | NUR ---
HAND-OFF: Report given to RITO Smith. Pt in stable condition. Rounds done with incoming RN.
--- NOTE | 2018-11-28 07:35 | NUR ---
NURSE NOTES: WALKING ROUNDS DONE WITH OUTGOING RN. PATIENT AWAKE UP TO BEDSIDE. QUESTIONS ANSWERED; NEEDS MET. DISCUSSED PLAN OF CARE FOR THE DAY. VERBALIZED UNDERSTANDING. CALL LIGHT WITHIN REACH. BED IN LOW AND LOCKED POSITION.
[2018-11-28] MEDS: celeBREX 200mg Cap **SURGERY PATIENTS ONLY ORAL SCH (08:47)
[2018-11-28] MEDS: HYDROcodone/Acetamin 7.5/325 tab ORAL PRN ×2 (08:47→15:07)
[2018-11-28] MEDS: Docusate 100mg cap ORAL SCH ×3 (08:48→18:00)
[2018-11-28] MEDS: Enoxaparin 30mg Inj SUBQ SCH ×2 (08:48→21:52)
--- NOTE | 2018-11-28 11:00 | NUR ---
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 ACUTE DVT VS: BP 125/69, P 85, T 99.0, RR 20, SpO2 100 WBC 4.1, RBC 3.11, Hgb 9.6, Hct 29.0 IS:NORCO 7.5/325 CELEBREX 200mg LOVENOX 30mg SUBQ D[facility] Addendum: 11/28/18 at 1122 by JHOAN BETANCOURT CM *-* CASE MANAGEMENT NOTES *-* NCM: MECHE WITH [employer] CALLED LEFT MESSAGE FOR [facility] NCM TO CALL HER BACK AT [phone] MESSAGE GIVEN TO [place].
--- NOTE | 2018-11-28 15:26 | NUR ---
NURSE NOTES: PATIENT REMAINS STABLE. UP AMBULATING WITH WALKER AND BRACE ON AND OFF WHEN AMBULATING. GAIT STEADY.PATIENT STILL REQUIRES PAIN MEDICATIONS. VSS.AFEBRILE.
--- NOTE | 2018-11-28 16:35 | NUR ---
NURSE NOTES: PATIENT WITH C/O CP 10/10 TO RIGHT MID STERNAL AREA. RR EVENLY SPACED. LUNGS CTA. SPO2 98% RA. DENIES N/V/ NO ABDOMINAL PAIN/ TINGLING TO EXTREMITIES.PATIENT STATES THEY HAVE BEEN STRESSED OUT WITH TALKING WLITH HIS [employer] OF [employer] TODAY. PLACED CALL TO DR. MAROI AND DR. ROMERO. WAITING RETURN CALL. PATIENT STATES THEY USUALLY SUFFER FROM ANXIETY WHEN STRESSED OUT AND TAKES XANAX @ HOME.
--- NOTE | 2018-11-28 16:45 | NUR ---
NURSE NOTES: ORDERS RECEIVED FROM DR. ROMERO. PATIENT STATES CHEST PAIN SUBSIDING. WILL CONTINUE TO MONITOR.
[2018-11-28] MEDS ORDERED: ALPRAZolam 0.5mg tab ORAL PRN (16:46)
--- NOTE | 2018-11-28 17:56 | NUR ---
NURSE NOTES: PATIENT STATES CHEST PAIN HAS RESOLVED WITH ADMINISTRATION OF XANAX 2 MG PO. EKD AND TROPONIN DONE. MD AWARE. PATIENT RESTING IN BED COMFORTABLY HAVING DINNER.
--- NOTE | 2018-11-28 19:30 | NUR ---
NURSE NOTES: Received report from RITO Smith. Patient A&Ox4. On room air, no signs of distress or labored breathing. No IV access, MD aware. Bed in lowest position with call light in reach. Will continue with plan of care.
--- NOTE | 2018-11-28 19:51 | NUR ---
HAND-OFF: Report given to Virginie Zaragoza rn.
--- NOTE | 2018-11-28 20:40 | Internal Med Progress Note ---
Subjective Date of Service: Nov 28, 2018 Physician Name Oskar Crowley Attending Physician Edson Wang MD Current Medications Medications (Trade) Dose Ordered Sig/Jeremy Route PRN Reason Start Time Stop Time Status Last Admin Dose Admin Acetaminophen (Tylenol) 650 mg Q4H PRN ORAL temp>100.2 or headache 11/19/18 13:00 12/19/18 12:59 Acetaminophen/ Hydrocodone Bitart ([place] 5/325) 2 tab Q4H PRN ORAL PAIN LEVEL 4-10 11/27/18 16:15 12/04/18 16:14 11/27/18 16:45 Acetaminophen/ Hydrocodone Bitart ([place] 7.5/325) 1 tab Q4H PRN ORAL Mild Pain (Pain Scale 1-3) 11/27/18 16:15 12/04/18 16:14 11/28/18 15:07 Alprazolam (Xanax) 2 mg Q8H PRN ORAL For Anxiety 11/28/18 16:46 12/05/18 16:45 11/28/18 16:53 Celecoxib (CeleBREX) 200 mg DAILY ORAL 11/20/18 09:00 12/20/18 08:59 11/28/18 08:47 Docusate Sodium (Colace) 100 mg THREE TIMES A DAY ORAL 11/19/18 13:00 12/19/18 12:59 11/25/18 09:01 Enoxaparin Sodium (Lovenox) 30 mg EVERY 12 HOURS SUBQ 11/19/18 21:00 12/19/18 20:59 11/28/18 08:48 Ferrous Sulfate (Feosol) 325 mg THREE TIMES A DAY ORAL 11/19/18 13:00 12/19/18 12:59 11/28/18 08:47 Magnesium Hydroxide (Mom) 30 ml DAILYPRN PRN ORAL Constipation 11/19/18 12:00 12/19/18 11:59 Ondansetron HCl (Zofran) 4 mg Q6H PRN IVP Nausea & Vomiting 11/19/18 12:00 12/19/18 11:59 Allergies: Coded Allergies: NEOMYCIN (Unverified Allergy, Unknown, 11/19/18) POLYMYXIN B (Unverified Allergy, Unknown, 11/19/18) Uncoded Allergies: ANTIBIOTICS NEOMYCIN- POLYMYXIN (Allergy, Unknown, 11/19/18) ROS Limited/Unobtainable: No Constitutional: Reports: no symptoms HEENT: Reports: no symptoms Cardiovascular: Reports: no symptoms Respiratory: Reports: no symptoms Gastrointestinal/Abdominal: Reports: no symptoms Genitourinary: Reports: no symptoms Neurologic/Psychiatric: Reports: no symptoms Subjective 53 YO M admitted for Left knee osteoarhritis. S/P left knee total arthroplasty . Now acute DVT left leg. S/P IVC filter 11/22/18. Cover for Int Med-DR Rivera. Anxiety earlier-requesting xanax Objective Last Vital Signs Date Time Temp Pulse Resp B/P (MAP) Pulse Ox O2 Delivery O2 Flow Rate FiO2 11/28/18 16:35 87 20 134/77 (96) 98 11/28/18 16:00 97.6 11/28/18 09:00 Room Air 11/20/18 07:15 Laboratory Tests Test 11/28/18 05:50 11/28/18 16:54 White Blood Count 4.1 K/UL (4.8-10.8) L Red Blood Count 3.11 M/UL (4.70-6.10) L Hemoglobin 9.6 G/DL (14.2-18.0) L Hematocrit 29.0 % (42.0-52.0) L Mean Corpuscular Volume 93 FL (80-99) Mean Corpuscular Hemoglobin 31.0 PG (27.0-31.0) Mean Corpuscular Hemoglobin Concent 33.3 G/DL (32.0-36.0) Red Cell Distribution Width 12.5 % (11.6-14.8) Platelet Count 391 K/UL (150-450) Mean Platelet Volume 5.1 FL (6.5-10.1) L Neutrophils (%) (Auto) 55.5 % (45.0-75.0) Lymphocytes (%) (Auto) 31.5 % (20.0-45.0) Monocytes (%) (Auto) 8.4 % (1.0-10.0) Eosinophils (%) (Auto) 3.1 % (0.0-3.0) H Basophils (%) (Auto) 1.5 % (0.0-2.0) Sodium Level 141 MMOL/L (136-145) Potassium Level 3.8 MMOL/L (3.5-5.1) Chloride Level 104 MMOL/L (98-107) Carbon Dioxide Level 29 MMOL/L (21-32) Anion Gap 8 mmol/L (5-15) Blood Urea Nitrogen 18 mg/dL (7-18) Creatinine 1.0 MG/DL (0.55-1.30) Estimat Glomerular Filtration Rate > 60 mL/min (>60) Glucose Level 82 MG/DL (74-106) Calcium Level 9.3 MG/DL (8.5-10.1) Troponin I 0.000 ng/mL (0.000-0.056) Intake and Output 11/27/18 11/28/18 18:59 06:59 Intake Total 700 ml 480 ml Balance 700 ml 480 ml Intake Oral 700 ml 480 ml # Voids 2 2 Objective eneral Appearance: WD/WN, no apparent distress, alert EENT: PERRL/EOMI, normal ENT inspection, TMs normal Neck: non-tender, normal alignment, supple, normal inspection Cardiovascular: normal peripheral pulses, normal rate, regular rhythm, no gallop/murmur, no JVD Respiratory/Chest: chest wall non-tender, lungs clear, normal breath sounds, no respiratory distress, no accessory muscle use Abdomen: normal bowel sounds, non tender, soft, no organomegaly, no mass Extremities: normal range of motion, non-tender Neurologic: adobe cq developer II-XII grossly normal, no motor/sensory deficits Skin: normal pigmentation, warm/dry Assessment/Plan Problem List: (1) Osteoarthritis of left knee Assessment & Plan: S/P total left knee arthroplasty on 11/19/18. See ortho note (2) Deep venous thrombosis of distal end of left lower extremity Assessment & Plan: S/P IVC 11/22/18. V/Q=low to intermed prob pulm embolus (3) Anxiety Assessment & Plan: xanax prn Assessment/Plan D/C planning: [facility] Oskar Crowley MD Nov 28, 2018 20:40
[2018-11-29] VITALS: BP 135/88
[2018-11-29] MEDS: HYDROcodone/Acetamin 5/325 tab ORAL PRN (02:45)
[2018-11-29 04:00] VITALS: BP 141/89
--- NOTE | 2018-11-29 07:56 | NUR ---
NURSE NOTES: Received report from RITO Rachel. Rounding done with outgoing nurse. Patient a/o x4 lying on the bed. No respiratory distress and chest pain noted. Denies pain at this time. Left knee surgical dressing site is dry and intact. Bed in lowest position, call light within reach. Will continue to monitor.
[2018-11-29 08:00] VITALS: BP 117/75
--- NOTE | 2018-11-29 08:10 | NUR ---
HAND-OFF: Report given to Bethany Cam RN.
[2018-11-29] MEDS: celeBREX 200mg Cap **SURGERY PATIENTS ONLY ORAL SCH (08:29)
[2018-11-29] MEDS: Enoxaparin 30mg Inj SUBQ SCH (08:30)
[2018-11-29] MEDS: Docusate 100mg cap ORAL SCH ×2 (08:32→12:51)
[2018-11-29 12:00] VITALS: BP 125/73
--- NOTE | 2018-11-29 12:30 | NUR ---
DISCHARGE PLANNING DISCHARGE ORDER NOTED Patient is being transfer to; [facility] [address] [place] [address] Bed: 801 Acute Rehab [phone] for Nurse to Nurse report [facility] ETA for transportation: 14:30 Patient is in agreement with transfer
--- NOTE | 2018-11-29 13:25 | NUR ---
NURSE NOTES: Report was given to Macy Zimmerman nurse. Addendum: 11/29/18 at 1332 by Bethany Nguyen RN [facility]
--- NOTE | 2018-11-29 16:12 | NUR ---
NURSE NOTES: Dr. Crowley ordered continue xanax 2 mg q8 prn for anxiety, tramadol 37.5mg q6 prn for pain. Noted and carried out.
[2018-11-29] MEDS ORDERED: XANAX2 MG ORAL (16:14)
[2018-11-29] MEDS ORDERED: TRAMADOL HCL50 MG ORAL (16:16)
--- NOTE | 2018-11-29 16:29 | NUR ---
NURSE NOTES: Discharge instruction was given. Belongings checked with pt. Arm band was removed. Patient discharged with paramedics in stable condition.
--- NOTE | 2018-11-29 16:40 | Cardiology Report ---
APPROVED REPORT EKG Measurement Heart [id number] Sinus rhythm with fusion complexes Otherwise normal ECG
--- NOTE | 2018-11-29 21:50 | Cardiology Report ---
APPROVED REPORT EKG Measurement Heart [id number] Normal sinus rhythm Nonspecific T wave abnormality Abnormal ECG
--- NOTE | 2018-12-01 22:56 | Diagnostic Imaging Report ---
APPROVED REPORT CPT Code: 35653 Present Symptoms Comments: Post Op knee swelling LEFT LEG: Venous imaging reveals acute thrombus in the superficial femoral distal and popliteal veins. Remainder of the deep venous system within normal limits. No evidence of thrombus within the common femoral or tibial segments. Greater saphenous vein also within normal limits. RITO Montilla was notified of abnormal results at 1035 hours.
== END 2018-11-29 16:29 | disposition short-term general hospital (02) | DRG 470 ==
LOC: SDSOVERFLO 05:17 → 3E 11:20
PROC: 0SRD069 Replacement of Left Knee Joint with Oxidized Zirconium on Polyethylene Synthetic Substitute, Cemented, Open Approach (ICD-10-PCS; principal; 2018-11-19 07:00)
PROC: 06H03DZ Insertion of Intraluminal Device into Inferior Vena Cava, Percutaneous Approach (ICD-10-PCS; 2018-11-22)
DX: M17.12 Unilateral primary osteoarthritis, left knee (principal); I26.99 Other pulmonary embolism without acute cor pulmonale; I82.412 Acute embolism and thrombosis of left femoral vein; I82.432 Acute embolism and thrombosis of left popliteal vein; G47.33 Obstructive sleep apnea (adult) (pediatric); Z98.84 Bariatric surgery status; I10 Essential (primary) hypertension; F41.9 Anxiety disorder, unspecified; D64.9 Anemia, unspecified
CPT/HCPCS: 36415; 74177; 76937; 78579; 78580; 80048; 80053; 84484; 85007; 85025; 85610; 85730; 86850; 86900; 86901; 87081; 93005; 93306; 93971; 94003; 94150; A9503; J2405

== ENCOUNTER 2019-01-24 14:37 | Inpatient (IN) | payer OTHER ==
[~2019-01-24] VITALS: Ht 182.9 cm; Wt 131.5 kg
[~2019-01-24 14:37] MED LIST changes: +LOVENOX10 MG SUBQ; +TRAMADOL HCL50 MG ORAL; +XANAX2 MG ORAL
[2019-01-24 15:00] VITALS: BP 169/99
--- NOTE | 2019-01-24 15:00 | NUR ---
ED Nurse Note: pt present at ER from home due to Lt knee possible infection. patient aao x4 and ambulatory but impaired. skin clean and intact. 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 no cardiac or pulmonary distress noted at this time. per pt, he had Lt knee surgery on 11/19/18 and pt has had redness and swelling and pain on Lt knee for last 5 days.
--- NOTE | 2019-01-24 15:43 | Emergency Room Report ---
History of Present Illness General Chief Complaint: Pain Source: Patient Present Illness HPI Patient 53-year-old male who presented after increased left knee pain and swelling. Patient a prior history of deep venous thrombosis to the left lower extremity. He reported having increased discomfort and swelling to the left lower extremity. Pain to his left knee near where his total knee replacement was performed. He had reportedly been seen at [facility] last night. Patient reports having some subjective warmth to the area. He denies any change in his anticoagulation. He had previous left femoral deep venous thrombosis.Patient had increased pain over the past few days. He had been able to ambulate with a cane. He had a prior history of gastric bypass surgery. He reports having some generalized abdominal pain. He denies taking any medications currently. Allergies: Coded Allergies: NEOMYCIN (Unverified Allergy, Unknown, 11/19/18) POLYMYXIN B (Unverified Allergy, Unknown, 11/19/18) Uncoded Allergies: ANTIBIOTICS NEOMYCIN- POLYMYXIN (Allergy, Unknown, 11/19/18) Patient History Past Surgical History: other - gastric bypass, left total knee replacement Reviewed Nursing Documentation: PMH: Agreed; PSxH: Agreed Nursing Documentation-PMH Past Medical History: No History, Except For Hx Cardiac Problems: No Hx Hypertension: Yes Hx Asthma: Yes Hx Cancer: No Hx Gastrointestinal Problems: Yes - gastric bypass Hx Neurological Problems: No Review of Systems All Other Systems: negative except mentioned in HPI Physical Exam Vital Signs Date Time Temp Pulse Resp B/P (MAP) Pulse Ox O2 Delivery O2 Flow Rate FiO2 01/24/19 14:55 98.2 76 16 169/99 (122) 100 Room Air Sp02 EP Interpretation: reviewed, normal General Appearance: normal inspection, well appearing, no apparent distress, alert, GCS 15, obese Head: atraumatic ENT: normal ENT inspection, hearing grossly normal, normal voice Neck: normal inspection, full range of motion, supple, no bony tend Respiratory: normal inspection, lungs clear, normal breath sounds, no respiratory distress, no retraction, no wheezing Cardiovascular #1: regular rate, rhythm, no edema Gastrointestinal: normal inspection, normal bowel sounds, non tender, soft, no guarding, no hernia Genitourinary: no CVA tenderness Musculoskeletal: normal inspection, back normal, decreased range of motion, swelling, other - warmth Neurologic: normal inspection, alert, responsive, speech normal Psychiatric: normal inspection, judgement/insight normal, mood/affect normal Skin: normal inspection, normal color, no rash Medical Decision Making Diagnostic Impression: Primary Impression: Total knee replacement status Additional Impression: Leg edema, left ER Course Patient presented for left lower extremity pain and swelling. Differential diagnosis include was not limited to deep venous thrombosis, total knee replacement septic joint, congestive heart failure among others. Because of complexity of patient's case laboratory testing and imaging studies were ordered.Patient was noted to have some evidence of prior DVT. He was noted to be on anticoagulation. Patient's knee appears to be somewhat swollen and warm.Patient was noted to have CRP within normal limits. Patient was discussed with Dr. Marjan Cartwright who agreed to accept the [facility]. Given the patient's CRP and normal white blood count. I do not feel that this is likely to be infected. Patient's condition was discussed with Dr. Edson Wang. Patient was authorized for admission to [facility]. Patient will be admitted to Dr. Jeff Rivera due to covering physician for patient's workers comp case. Labs Test 01/24/19 15:50 White Blood Count 4.3 K/UL (4.8-10.8) Red Blood Count 4.00 M/UL (4.70-6.10) Hemoglobin 12.1 G/DL (14.2-18.0) Hematocrit 35.3 % (42.0-52.0) Mean Corpuscular Volume 88 FL (80-99) Mean Corpuscular Hemoglobin 30.2 PG (27.0-31.0) Mean Corpuscular Hemoglobin Concent 34.2 G/DL (32.0-36.0) Red Cell Distribution Width 12.6 % (11.6-14.8) Platelet Count 199 K/UL (150-450) Mean Platelet Volume 5.1 FL (6.5-10.1) Neutrophils (%) (Auto) 43.7 % (45.0-75.0) Lymphocytes (%) (Auto) 45.0 % (20.0-45.0) Monocytes (%) (Auto) 8.9 % (1.0-10.0) Eosinophils (%) (Auto) 1.7 % (0.0-3.0) Basophils (%) (Auto) 0.8 % (0.0-2.0) Prothrombin Time 10.6 SEC (9.30-11.50) Prothromb Time International Ratio 1.0 (0.9-1.1) Activated Partial Thromboplast Time 26 SEC (23-33) Sodium Level 143 MMOL/L (136-145) Potassium Level 3.6 MMOL/L (3.5-5.1) Chloride Level 105 MMOL/L (98-107) Carbon Dioxide Level 27 MMOL/L (21-32) Anion Gap 11 mmol/L (5-15) Blood Urea Nitrogen 24 mg/dL (7-18) Creatinine 1.0 MG/DL (0.55-1.30) Estimat Glomerular Filtration Rate > 60 mL/min (>60) Glucose Level 81 MG/DL (74-106) Calcium Level 8.9 MG/DL (8.5-10.1) Total Bilirubin 0.4 MG/DL (0.2-1.0) Aspartate Amino Transf (AST/SGOT) 17 U/L (15-37) Alanine Aminotransferase (ALT/SGPT) 15 U/L (12-78) Alkaline Phosphatase 70 U/L (46-116) C-Reactive Protein, Quantitative 0.9 mg/dL (0.00-0.90) Total Protein 7.1 G/DL (6.4-8.2) Albumin 4.2 G/DL (3.4-5.0) Globulin 2.9 g/dL Albumin/Globulin Ratio 1.4 (1.0-2.7) Last Vital Signs Date Time Temp Pulse Resp B/P (MAP) Pulse Ox O2 Delivery O2 Flow Rate FiO2 01/24/19 14:55 98.2 76 16 169/99 (122) 100 Room Air Status: unchanged Disposition: XFER SHT-TRM HOSP Condition: Stable Wai Rubin MD Jan 24, 2019 15:43
[2019-01-24 16:17] LABS: BASOPHILS % (AUTO) 0.8 % (0.0-2.0); EOSINOPHILS % (AUTO) 1.7 % (0.0-3.0); HEMATOCRIT 35.3 % (42.0-52.0); HEMOGLOBIN 12.1 G/DL (14.2-18.0); MEAN CORPUSCULAR VOLUME 88 FL (80-99); MONOCYTES % (AUTO) 8.9 % (1.0-10.0); NEUTROPHILS % (AUTO) 43.7 % (45.0-75.0); PLATELET COUNT 199 K/UL (150-450); RED CELL DISTRIBUTION WIDTH 12.6 % (11.6-14.8); WHITE BLOOD COUNT 4.3 K/UL (4.8-10.8)
--- NOTE | 2019-01-24 16:21 | Diagnostic Imaging Report ---
Indication: Knee pain. History of total knee arthroplasty 2 months ago Technique: 3 views of the left knee Comparison: None Findings: There is suggestion of a small suprapatellar effusion. There is a knee arthroplasty prosthesis in place. This appears well aligned, no periprosthetic lucency. There is edema of the subcutaneous fat. No dislocations. No acute fractures. Impression: Small joint effusion No acute bony trauma Well aligned knee arthroplasty prosthesis
[2019-01-24 16:22] LABS: ANION GAP 11 mmol/L (5-15); BLOOD UREA NITROGEN 24 mg/dL (7-18); CALCIUM 8.9 MG/DL (8.5-10.1); CARBON DIOXIDE 27 MMOL/L (21-32); CHLORIDE 105 MMOL/L (98-107); POTASSIUM 3.6 MMOL/L (3.5-5.1); SODIUM 143 MMOL/L (136-145)
[2019-01-24 16:27] LABS: ALANINE AMINOTRANSFERASE 15 U/L (12-78); ALBUMIN 4.2 G/DL (3.4-5.0); ALBUMIN/GLOBULIN RATIO 1.4 (1.0-2.7); ALKALINE PHOSPHATASE 70 U/L (46-116); ASPARTATE AMINO TRANSFERASE 17 U/L (15-37); BILIRUBIN,TOTAL 0.4 MG/DL (0.2-1.0)
[2019-01-24 16:45] VITALS: BP 157/79
[2019-01-24] MEDS ORDERED: Enoxaparin 120 mg inj SUBQ ONE (17:00)
[2019-01-24] MEDS ORDERED: cefTRIAXone 1 GM in NS 55 ML IVPB ONE (17:00)
--- NOTE | 2019-01-24 17:28 | NUR ---
ED Nurse Note: Lovenox not available at [facility] at this moment. pharmacist Arun will bring it to nurse.
--- NOTE | 2019-01-24 17:40 | NUR ---
ED Nurse Note: US at bedside.
--- NOTE | 2019-01-24 19:00 | NUR ---
HAND-OFF: Report given to RITO Wooten. pt will stay at [facility]. no room assigned yet.
[2019-01-24 19:02] VITALS: BP 146/86
--- NOTE | 2019-01-24 19:06 | NUR ---
ED Nurse Note: Patient relaxing with no complaints, belongings sheet completed. vital signs are stable.
[2019-01-24 19:14] VITALS: BP 158/94
--- NOTE | 2019-01-24 20:26 | NUR ---
ED Nurse Note: Called to give report was on hold for 10 minutes.
--- NOTE | 2019-01-24 20:39 | NUR ---
ED Nurse Note: Called and gave report to Tasneem RN.
--- NOTE | 2019-01-24 20:45 | NUR ---
ED Nurse Note: Patient transported to floor by Camron and RN. Ott verified with receiving nurse and documented on belongings sheet.
[2019-01-24] MEDS ORDERED: TRAMADOL-ACETA1 EACH ORAL (20:46)
[2019-01-24] MEDS ORDERED: TRAZODONE HCL300 MG ORAL (20:46)
[2019-01-24] MEDS ORDERED: GABAPENTIN300 MG ORAL (20:46)
[2019-01-24] MEDS ORDERED: CYCLOBENZAPRINE5 MG ORAL (20:46)
[2019-01-24] MEDS ORDERED: PROAIR HFA8.5 GM INH (20:46)
[2019-01-24] MEDS ORDERED: ALPRAZOLAM2 MG ORAL (20:46)
[2019-01-24] MEDS ORDERED: ZANTAC150 MG ORAL (20:46)
--- NOTE | 2019-01-24 21:30 | NUR ---
NURSE NOTES: RECEIVED PT FROM ER NURSE. PT IS AWAKE, AAO X4, ON ROOM AIR, NO ACUTE DISTRESS NOTED. IV ON LEFT FA 20 IS INTACT AND PATENT. REVIEWED PT'S BELONGING LIST WITH PT AND ER NURSE. ORIENTED PT TO ROOM. BED IS LOCKED AT THE LOWEST POSITION, BED ALARMS ACTIVE, SIDE RAILS UP X2, AND CALL LIGHT IS WITHIN REACH. WILL CONTINUE TO MONITOR.
[2019-01-24] MEDS ORDERED: Enoxaparin 30mg Inj SUBQ SCH (23:00)
[2019-01-24] MEDS ORDERED: Milk of Magnesia 30ml Ud ORAL PRN (23:00)
[2019-01-24] MEDS: ceFAZolin 1gm/50ml Premix 50 ML IV SCH (23:47)
[2019-01-25] VITALS (7 sets, daily range): BP systolic 128–149; BP diastolic 76–92
[2019-01-25] MEDS: Albuterol 90mcg Inhaler 8gm INH SCH ×4 (02:34→19:54)
[2019-01-25] MEDS: ceFAZolin 1gm/50ml Premix 50 ML IV SCH (06:46)
--- NOTE | 2019-01-25 08:00 | NUR ---
HAND-OFF: Report given to RITO GUTIERREZ.
--- NOTE | 2019-01-25 08:12 | NUR ---
NURSE NOTES: Patine alert x4, on room air, no sign of distress and shortness of breath; no sign of chest pain; IV [id number], flushes well; urinal within reach; Left-Knee swollen elevated by pillow; side rails up x2, breaks engaged, bed at lowest position; call light within reach; will keep monitoring.
[2019-01-25] MEDS: Enoxaparin 30mg Inj SUBQ SCH ×2 (08:46→21:11)
[2019-01-25] MEDS ORDERED: Tubing IV Secondary IV ONE (10:23)
[2019-01-25] MEDS ORDERED: NS 275ml ONE (10:23)
--- NOTE | 2019-01-25 13:13 | NUR ---
NURSE NOTES: Patient complained chest pain, I took vitals sign; VS are stable BP 135/83 P 77 T 97.2 Sat 99%; I notified the Charge Nurse, Edson BAILEY did EKG on patient. Will keep monitoring.
--- NOTE | 2019-01-25 13:30 | NUR ---
NURSE NOTES: pt c/o chest pain right sided chest, no radiation, no slurred speech, no change in loc, no s/s distress. vs recorded. ekg done shows "normal sinus rhythm, possible inferior infarct, age undetermined" patient also states during ekg that chest pain 'has reduced now' paged dr Rivera, per exchange covering md is Dr Shrestha [phone]
--- NOTE | 2019-01-25 13:34 | NUR ---
NURSE NOTES: paged dr Felton re chest pain, awaiting response. left message
[2019-01-25] MEDS ORDERED: ceFAZolin 1gm in D5W 55ml IVPB SCH (14:00)
--- NOTE | 2019-01-25 14:09 | History & Physical ---
History and Physical History & Physicial dictated [id number] Dylan Shrestha MD Jan 25, 2019 14:09
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
[2019-01-25] MEDS: traMADol 50mg tab ORAL PRN (15:06)
[2019-01-25] MEDS: Vancomycin 1gm/D5W 275ml IVPB SCH ×4 (15:06→21:11)
--- NOTE | 2019-01-25 17:34 | NUR ---
NURSE NOTES: Patient feels nauseated and vomiting. I communicated A Rahban, waiting to get an order.
--- NOTE | 2019-01-25 17:40 | NUR ---
NURSE NOTES: Order received from MD Teodoro Shrestha, carried out as order.
--- NOTE | 2019-01-25 19:31 | NUR ---
HAND-OFF: Report given to RITO Nix.
--- NOTE | 2019-01-25 19:40 | NUR ---
NURSE NOTES: RECEIVED PT FROM RITO GUTIERREZ. PT IS AWAKE, AAOX4, ON ROOM AIR, NO ACUTE DISTRESS NOTED. LEFT LEG APPEARED SWOLLEN, WARM TO TOUCH AND EDEMATOUS. PT STATED THAT HE HAS BEEN HAVING INTERMITTENT CHEST PAIN, BUT IS FEELING BETTER, DENIES SOB. NO CHANGE IN SOC. VVS. IV ON LEFT FA 22G IS INTACT AND PATENT. BED IS LOCKED AT THE LOWEST POSITION, BED ALARMS ACTIVE, SIDE RAILS UP X2, AND CALL LIGHT IS WITHIN REACH. WILL CONTINUE TO MONITOR.
--- NOTE | 2019-01-25 21:00 | History and Physical Report ---
DATE OF ADMISSION: 01/24/2019 CHIEF COMPLAINT: Left knee redness, swelling, and pain. HISTORY OF PRESENT ILLNESS: 1. This is a 53-year-old male with history of work injury. The patient had left knee surgery in November. The patient has also problems with his shoulders and the right knee, he is supposed to have surgery as well. So, he came in yesterday for redness over his left knee, which is extending distally. The patient had also pain. It started on 01/20/2019. Primary care came to the emergency room. The patient was diagnosed with cellulitis and admitted. PAST MEDICAL HISTORY: Reported history of depression, asthma, but he denies any hypertension. PAST SURGICAL HISTORY: He has a history of gastric bypass. Status post left total knee replacement. MEDICATIONS: Reviewed in the EMR. SOCIAL HISTORY: No history of smoking or alcohol abuse. ALLERGIES: Reported to neomycin/polymyxin. PHYSICAL EXAMINATION: GENERAL: The patient is an obese male, in no acute distress. VITAL SIGNS: Blood pressure is 135/83, pulse 77, respiratory rate 16, and temperature 97.2. HEENT: [place] conjunctivae. Anicteric sclerae. NECK: Supple. LUNGS: Clear to auscultation. HEART: S1, S2 without murmurs or rubs. ABDOMEN: Soft, nontender. EXTREMITIES: The patient has redness of the left knee and swelling distending distally. LABORATORY FINDINGS: CBC shows a WBC of 4300, hematocrit is 35.3, hemoglobin 12.1, and platelets 191,000. Chemistry panel shows serum sodium of 143, potassium 3.6, chloride 105, CO2 24, creatinine 1. ASSESSMENT: This is a 53-year-old male who was admitted with left knee cellulitis. It is unclear if the patient has hypertension. He did have an elevated blood pressure in the ER, but now it is controlled. The patient has also history of work-related injury, complaining also right shoulder pain. He has history of obesity. PLAN: The patient will be on antibiotics. Pain medication will be prescribed. Case was discussed with RITO. Dylan Shrestha M.D. DR: FLORENTINO JOB#: [id number] CC: JUSTO
[2019-01-25] MEDS: TraZODone 100mg tab ORAL SCH (21:10)
[2019-01-26] VITALS: BP 139/80
[2019-01-26] MEDS: Albuterol 90mcg Inhaler 8gm INH SCH ×4 (01:00→19:00)
[2019-01-26] MEDS: Vancomycin 1gm/D5W 275ml IVPB SCH ×6 (05:48→22:00)
--- NOTE | 2019-01-26 07:20 | NUR ---
NURSE NOTES: Patient alert x4; on room air, no sign of distress and shortness of breath; no sign of chest pain; IV Left For-Arm Vanco running; Left leg swollen and elevated by pillow; urinal within reach; bed at lowest position, side rails up x2, breaks engaged; call light within reach; will keep monitoring.
--- NOTE | 2019-01-26 07:40 | NUR ---
HAND-OFF: Report given to RITO GUTIERREZ.
[2019-01-26 08:00] VITALS: BP 132/87
[2019-01-26] MEDS: Enoxaparin 30mg Inj SUBQ SCH ×2 (08:07→22:00)
[2019-01-26] MEDS: traMADol 50mg tab ORAL PRN (08:09)
[2019-01-26 12:00] VITALS: BP 128/89
[2019-01-26 16:00] VITALS: BP 152/83
--- NOTE | 2019-01-26 17:39 | NUR ---
CASE MANAGEMENT: REVIEW 01/26/2019 SI:METALLIC INTESTINAL FOREIGN BODY. VISCOUS PERFORATION. T 98.5 HR 59 RR 19 B/P 152/83 SATS 98% ON RA NO LABS TODAY IS: TRAZODONE PO QHS PEPCID PO BID GABAPENTIN PO QD VANCO IV Q8H MED/SURG STATUS DCP: PATIENT TO BE DISCHARGED TO APPROPRIATE LOCATION ONCE MEDICALLY CLEARED.
--- NOTE | 2019-01-26 19:30 | NUR ---
NURSE NOTES: RECEIVED PT FROM RITO GUTIERREZ. PT IS AWAKE, AAOX4, ON ROOM AIR, NO ACUTE DISTRESS NOTED. LEFT LEG APPEARED SWOLLEN, WARM TO TOUCH AND EDEMATOUS. DENIES SOB. VVS. IV ON LEFT FA 22G IS INTACT AND PATENT. BED IS LOCKED AT THE LOWEST POSITION, BED ALARMS ACTIVE, SIDE RAILS UP X2, AND CALL LIGHT IS WITHIN REACH. WILL CONTINUE TO MONITOR.
--- NOTE | 2019-01-26 19:40 | NUR ---
HAND-OFF: Report given to RITO Nix.
[2019-01-26 20:00] VITALS: BP 136/88
--- NOTE | 2019-01-26 20:58 | General Progress Note ---
Assessment/Plan Problem List: (1) Cellulitis of left knee ICD Codes: L03.116 - Cellulitis of left lower limb SNOMED: 08117610748608463 (2) Osteoarthritis of left knee ICD Codes: M17.12 - Unilateral primary osteoarthritis, left knee SNOMED: 153905840441854 Assessment/Plan: Continued IV vancomycin Physical therapy Discussed with RN Subjective Allergies: Coded Allergies: NEOMYCIN (Unverified Allergy, Unknown, 11/19/18) POLYMYXIN B (Unverified Allergy, Unknown, 11/19/18) Uncoded Allergies: ANTIBIOTICS NEOMYCIN- POLYMYXIN (Allergy, Unknown, 11/19/18) Subjective Left knee still sore Objective Last 24 Hour Vital Signs Date Time Temp Pulse Resp B/P (MAP) Pulse Ox O2 Delivery O2 Flow Rate FiO2 01/26/19 19:00 72 16 98 Room Air 21 01/26/19 19:00 72 16 98 Room Air 21 01/26/19 16:00 98.5 59 19 152/83 (106) 98 01/26/19 13:03 98.1 01/26/19 12:55 80 16 99 Room Air 21 01/26/19 12:55 79 16 99 Room Air 21 01/26/19 12:00 98.1 68 19 128/89 (102) 95 01/26/19 09:00 Room Air 01/26/19 08:39 98.2 01/26/19 08:00 97.8 67 18 132/87 (102) 99 01/26/19 06:58 89 20 98 Room Air 21 01/26/19 06:58 80 18 99 Room Air 21 01/26/19 01:52 Room Air 21 01/26/19 01:51 Room Air 21 01/26/19 00:00 98.2 62 18 139/80 (99) 98 01/25/19 21:00 Room Air Intake and Output 01/25/19 01/26/19 18:59 06:59 Intake Total 1327.416 ml 551.124 ml Output Total 1600 ml 1 ml Balance -272.584 ml 550.124 ml Intake Oral 960 ml IV Total 367.416 ml 551.124 ml Output Urine Total 1600 ml 1 ml Laboratory Tests 01/26/19 13:15: Vancomycin Level Trough 11.3 Height (Feet): 6 Height (Inches): 0.00 Weight (Pounds): 290 Cardiovascular: normal rate Respiratory/Chest: lungs clear Extremities: other - Left knee still swollen however the redness has subsided Dylan Shrestha MD Jan 26, 2019 20:58
[2019-01-26] MEDS: TraZODone 100mg tab ORAL SCH (22:00)
[2019-01-27] VITALS: BP 134/72
[2019-01-27] MEDS: Albuterol 90mcg Inhaler 8gm INH SCH ×4 (01:19→19:20)
[2019-01-27] MEDS: Vancomycin 1gm/D5W 275ml IVPB SCH ×6 (06:50→22:16)
--- NOTE | 2019-01-27 07:22 | NUR ---
NURSE NOTES: RN received pt in stable condition awake and alert in bed. No s/s of acute distress or SOB. Bed in low, locked position, call light within reach. Will continue plan of care.
--- NOTE | 2019-01-27 07:30 | NUR ---
HAND-OFF: Report given TO RITO RAWLS.
[2019-01-27 08:00] VITALS: BP 130/77
[2019-01-27] MEDS: Enoxaparin 30mg Inj SUBQ SCH ×2 (08:21→21:00)
--- NOTE | 2019-01-27 09:47 | NUR ---
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
--- NOTE | 2019-01-27 10:00 | NUR ---
*-* INSURANCE *-* ALL CLINICALS AND REVIEWS HAVE BEEN FAXED TO: [facility] NCM: ROMEL P:[phone] F:[phone]
--- NOTE | 2019-01-27 11:53 | Diagnostic Imaging Report ---
Indication: Left lower extremity pain and swelling. Technique: Duplex Doppler imaging performed from the left common femoral vein to the popliteal vein. FINDINGS: Normal compressibility demonstrated from the common femoral vein to the popliteal vein. Respiratory phasicity and good augmentation demonstrated on waveform analysis. There is no evidence of thrombosis. IMPRESSION: No evidence of deep venous thrombosis within the left lower extremity.
--- NOTE | 2019-01-27 11:59 | NUR ---
NURSE NOTES: Pt requests medication for anxiety and sleeping. RN called Dr. Rivera and was asked to call Dr. Shrestha. RN received order from Dr. Shrestha for Ativan 1 mg qhs po.
[2019-01-27 12:00] VITALS: BP 141/87
--- NOTE | 2019-01-27 13:27 | General Progress Note ---
Assessment/Plan Problem List: (1) Cellulitis of left knee ICD Codes: L03.116 - Cellulitis of left lower limb SNOMED: 41617408877622484 (2) Osteoarthritis of left knee ICD Codes: M17.12 - Unilateral primary osteoarthritis, left knee SNOMED: 122398041544183 Assessment/Plan: Continued IV vancomycin Physical therapy will follow Subjective Allergies: Coded Allergies: NEOMYCIN (Unverified Allergy, Unknown, 11/19/18) POLYMYXIN B (Unverified Allergy, Unknown, 11/19/18) Uncoded Allergies: ANTIBIOTICS NEOMYCIN- POLYMYXIN (Allergy, Unknown, 11/19/18) Subjective Left knee still sore Objective Last 24 Hour Vital Signs Date Time Temp Pulse Resp B/P (MAP) Pulse Ox O2 Delivery O2 Flow Rate FiO2 01/27/19 13:06 80 20 99 Room Air 21 01/27/19 13:06 80 20 99 Room Air 21 01/27/19 12:00 97.9 68 18 141/87 (105) 99 01/27/19 09:00 Room Air 01/27/19 08:52 97.8 01/27/19 08:00 97.8 73 18 130/77 (94) 98 01/27/19 07:29 70 18 98 Room Air 21 01/27/19 07:29 70 18 98 Room Air 21 01/27/19 01:21 75 16 98 Room Air 21 01/27/19 01:21 75 16 98 Room Air 21 01/27/19 00:00 97.5 70 18 134/72 (92) 98 01/26/19 21:00 Room Air 01/26/19 20:00 98.0 67 18 136/88 (104) 96 01/26/19 19:00 72 16 98 Room Air 21 01/26/19 19:00 72 16 98 Room Air 21 01/26/19 16:00 98.5 59 19 152/83 (106) 98 Intake and Output 01/26/19 01/27/19 19:00 07:00 Intake Total 1451.124 ml Balance 1451.124 ml IV Total 551.124 ml Other 900 ml # Voids 4 Height (Feet): 6 Height (Inches): 0.00 Weight (Pounds): 290 Cardiovascular: normal rate Respiratory/Chest: lungs clear Edema: 2+ Generalized - Left knee still swollen although the redness is better Rahban,Dylan MD Jan 27, 2019 13:27
--- NOTE | 2019-01-27 15:17 | NUR ---
P.T NOTE: P.T EVALUATION COMPLETED. PATIENT PRESENTED L KNEE PAIN AND SWELLING LIMITING AMBULATION TOLERANCE. PATIENT IS CURRENTLY FUNCTIONING INDEPENDENTLY AND SAFELY DESPITE DIFFICULTY WITH AMBULATION ACTIVITIES CAUSED BY PAIN AND SWELLING OF THE L KNEE.ADVISED PATIENT TO AMBULATE WITH FWW ESPECIALLY WHEN L KNEE PAIN TRIGGERS TO FACILITATE GAIT STABILITY AND SYMMETRICAL GAIT PATTERN. CURRENT FUNCTIONAL STATUS DOES NOT REQUIRE SKILLED P.T SERVICE ACUTE CARE SETTING HOWEVER WOULD STILL RECOMMEND AN OP P.T FOR L KNEE REHAB. AT [place]. THANK YOU FOR THIS REFERRAL. Addendum: 01/27/19 at 1518 by NICK LOCKE PT Amended: Links added.
[2019-01-27 16:00] VITALS: BP 148/89
--- NOTE | 2019-01-27 19:21 | NUR ---
HAND-OFF: Report given to RITO Hernández.
--- NOTE | 2019-01-27 19:22 | NUR ---
NURSE NOTES: Got report from Lilina VERAS. Pt in stable condition. Denies any pain. No s/s of distress or discomfort noted. Pt resting in bed comfortably. Bed in low and locked position, call light within reach, bedside table within reach. Continue to monitor.
[2019-01-27 20:00] VITALS: BP 141/89
[2019-01-27] MEDS: TraZODone 100mg tab ORAL SCH (22:15)
[2019-01-27] MEDS: LORazepam 1mg tab ORAL PRN (22:15)
[2019-01-28] VITALS: BP 123/58
[2019-01-28] MEDS: Albuterol 90mcg Inhaler 8gm INH SCH ×4 (00:56→19:28)
[2019-01-28 04:07] VITALS: BP 130/62
[2019-01-28] MEDS: Vancomycin 1gm/D5W 275ml IVPB SCH ×6 (06:27→21:22)
--- NOTE | 2019-01-28 07:18 | NUR ---
HAND-OFF: Report given to Lilian VERAS. Endorsed plan of care.
--- NOTE | 2019-01-28 07:19 | NUR ---
NURSE NOTES: RN received pt in stable condition from RITO Christine. Pt awake and alert in bed eating breakfast. No s/s of acute distress or SOB. IV patent, asymptomatic and running Vanco. Pt denies pain. Bed in low, locked position, call light within reach. Discharge planned for today. Will continue to monitor.
[2019-01-28 08:00] VITALS: BP 132/66
[2019-01-28] MEDS: Enoxaparin 30mg Inj SUBQ SCH ×2 (08:10→20:46)
[2019-01-28] MEDS ORDERED: NS 275ml ONE (11:28)
--- NOTE | 2019-01-28 11:36 | NUR ---
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
[2019-01-28 12:00] VITALS: BP 143/88
--- NOTE | 2019-01-28 13:21 | Consultation ---
Consult Note Consult Note Patient seen/evaluated. s/p Left TKA in November. 6 day history of left knee/leg/ankle. No fever, chills, labs ok. Does have good ROM of the knee, but some swelling. He stated that it got bad once he went for a walk. Xrays: no evidence of lucency, prosthesis in excellent position. Patient diagnosed with Cellulitis, responding to IV vanco. Continue IV Vanco and recommend ID consult. Ice to the knee and NSAID if no contra-indication. Doubt that patient has a septic joint considering the clinical picture. No aspiration is done 2ndery to resolving cellulitis. Will follow with you peripherally. Thx and full consult dictated. Edson Wang MD Jan 28, 2019 13:21
--- NOTE | 2019-01-28 15:06 | NUR ---
*-* INSURANCE *-* UPDATED HAVE BEEN FAXED TO: [facility] SAM: ROMEL P:[phone] F:[phone]
--- NOTE | 2019-01-28 15:28 | NUR ---
CHARGE NURSE NOTES: DR. MARIO SEEN PATIENT, ORDERED FOR RADIOLOGY TO REMOVE IVC FILTER. SPOKE TO XENIA, FROM IR, PER HIM DR. HARO WILL BE BACK NEXT WEEK. DR. MARIO NOTIFIED.
[2019-01-28 16:00] VITALS: BP 134/89
[2019-01-28] MEDS: celeBREX 200mg Cap **SURGERY PATIENTS ONLY ORAL SCH (17:12)
--- NOTE | 2019-01-28 17:15 | History and Physical Report ---
DATE OF ADMISSION: 01/24/2019 HISTORY OF PRESENT ILLNESS: This is an unfortunate male who was admitted to the hospital with swelling around the left knee. The patient is status post total knee arthroplasty two months ago. He had a preoperative DVT and subsequently had IVC filter placed. He will be required to have his IVC filter removed. PHYSICAL EXAMINATION: VITAL SIGNS: Stable. NECK: No JVD. No carotid bruit. HEART: S1, S2. LUNGS: Clear. ABDOMEN: Soft. EXTREMITIES: Left knee is swollen and slight erythema. IMPRESSION: 1. Status post total knee arthroplasty. 2. Mild cellulitis of the left knee. Status post IVC filter placement. PLAN: 1. To remove the IVC filter if the patient is not having any other surgery. 2. Pain control. 3. DVT prophylaxis. 4. Venous Doppler on him twice has been negative. Jeff Rivera M.D. DR: ADAN JOB#: [id number] CC:
--- NOTE | 2019-01-28 18:57 | NUR ---
HAND-OFF: Report given to RITO Boateng.
--- NOTE | 2019-01-28 19:00 | Consultation ---
DATE OF CONSULTATION: 01/28/2019 ORTHOPEDIC CONSULTATION CONSULTING PHYSICIAN: Edson Wang M.D. REQUESTING PHYSICIAN: Jeff Rivera M.D. REASON FOR CONSULTATION: Left knee swelling, status post total knee arthroplasty in November 2018. BRIEF HISTORY: The patient is a pleasant 53-year-old gentleman, who has had ongoing left knee pain, decreased range of motion, and stiffness. He has had a history of prior deep venous thrombosis in the past. He is status post left total knee arthroplasty in November. His postop care was uneventful. There were no complications. The wound went on to heal very well. He states that about six days ago, he started having some mild swelling about the left knee. He went for a walk and swelling got worse. He started having some redness about the knee. He has not had any fever, chills, systemic signs of infection. He has not had any night sweats. He was seen at [facility] and then subsequently at [facility]. He was seen in our office as well and was noted to have some swelling, but no significant redness. He was evaluated in the [place] [facility] and was noted to have some swelling and was admitted for observation. The C-reactive proteins were normal as well as the WBCs. There was no left shift. He was admitted for observation. Prophylactically, he was started on vancomycin by the primary doctor. An Infectious Disease consultation has not been obtained. PAST MEDICAL HISTORY: Significant for DVT. PAST SURGICAL HISTORY: He has gastric bypass. MEDICATIONS: Please see chart. ALLERGIES: He is allergic to antibiotic, neomycin and polymyxin. SOCIAL HISTORY: Does not smoke or drink. He does ambulates independently. PHYSICAL EXAMINATION: EXTREMITIES: Examination of left knee reveals that he has a well-healed incision. There is no evidence of breakdown incision. He has had 0 to 90 degrees range of motion here. He has 1+ effusion about the left knee. He does have tenderness over the medial, lateral as well as posterior aspect of the knee. He has stable varus valgus stress. He has got some clicking with the knee range of motion, which is from the patellofemoral articulation. There is no significant redness that could be appreciated today. The left knee is warm to palpation, which is not unusual for a two-month postop course. At this time, there is no evidence of significant cellulitis. There is swelling in both ankles and both feet and both knees. DIAGNOSTIC DATA: X-ray of left knee reviewed. There is no radiolucency that could be appreciated. The prosthesis in excellent position and well seated and does not appear to be loose. IMPRESSION: Left knee swelling, possible superficial cellulitis. The patient is on vancomycin per primary doctor. DISCUSSION: At the time of discussion with the patient, I explained to him my findings. I doubt that there is a septic joint, although this is certainly a possibility. At this time, I will recommend Infectious Disease consultation. We will also recommend icing the left knee. We will see if he can go on to an anti-inflammatory in addition to the medication that he is taking. He takes Lovenox for . He has recently had a Doppler scan that was reportedly negative, there were no DVTs. We will go ahead and start him on ice and anti-inflammatories on to his left knee. We will see how he does clinically. His swelling is coming down at this point with the rest as well as the antibiotics. At this time, I do not recommend aspiration due to possible cellulitis and seeding the joint through the needle. Therefore, aspiration will not be performed at this point. We will see how he does clinically. All questions were answered. Edson Wang M.D. DR: ROBERT JOB#: [id number] CC:
--- NOTE | 2019-01-28 19:10 | NUR ---
NURSE NOTES: RECEIVED PT FROM RITO RAWLS. PT IS AWAKE, AAOX4, ON ROOM AIR, NO ACUTE DISTRESS NOTED. PT IS AMBULATING AROUND THE UNIT WITH A WALKER. DENIES PAIN AT THE MOMENT. IV ON RIGHT FA 24G IS INTACT AND PATENT. WILL CONTINUE TO MONITOR.
[2019-01-28 20:00] VITALS: BP 131/82
[2019-01-28] MEDS: TraZODone 100mg tab ORAL SCH (20:46)
[2019-01-28] MEDS: LORazepam 1mg tab ORAL PRN (20:53)
[2019-01-29] VITALS: BP 125/61
[2019-01-29] MEDS: Albuterol 90mcg Inhaler 8gm INH SCH ×4 (01:10→19:57)
[2019-01-29 04:00] VITALS: BP 125/76
[2019-01-29] MEDS: Vancomycin 1gm/D5W 275ml IVPB SCH ×4 (06:27→14:00)
[2019-01-29 06:29] LABS: HEMATOCRIT 37.2 % (42.0-52.0); HEMOGLOBIN 12.3 G/DL (14.2-18.0); MEAN CORPUSCULAR VOLUME 91 FL (80-99); PLATELET COUNT 223 K/UL (150-450); RED BLOOD COUNT 4.09 M/UL (4.70-6.10); RED CELL DISTRIBUTION WIDTH 13.2 % (11.6-14.8); WHITE BLOOD COUNT 2.4 K/UL (4.8-10.8)
[2019-01-29 06:42] LABS: ANION GAP 6 mmol/L (5-15); BLOOD UREA NITROGEN 13 mg/dL (7-18); CALCIUM 8.7 MG/DL (8.5-10.1); CARBON DIOXIDE 31 MMOL/L (21-32); CHLORIDE 106 MMOL/L (98-107); CREATININE 1.1 MG/DL (0.55-1.30); POTASSIUM 3.3 MMOL/L (3.5-5.1); SODIUM 143 MMOL/L (136-145)
--- NOTE | 2019-01-29 07:58 | NUR ---
HAND-OFF: Report given to RITO ROSA.
[2019-01-29 08:00] VITALS: BP 164/90
[2019-01-29] MEDS: celeBREX 200mg Cap **SURGERY PATIENTS ONLY ORAL SCH ×2 (08:45→17:36)
[2019-01-29] MEDS: Enoxaparin 30mg Inj SUBQ SCH ×2 (08:51→20:54)
--- NOTE | 2019-01-29 10:21 | NUR ---
*-* INSURANCE *-* UPDATED CLINICALS HAVE BEEN FAXED TO: [facility] SAM: ROMEL P:[phone] F:[phone]
--- NOTE | 2019-01-29 10:39 | NUR ---
NURSE NOTES: PT AXOX4, CALM, WITH LEFT KNEE PAIN 8-9/10, EDEMA (NON-[ITTING) AND HOT TO TOUCH, SKIN INTACT. PT PROVIDED WITH ICE PACK TO BE APPLIED FOR 1 HOUR INTERVAL THREE TIMES A DAY. PT VERBALIZES UNDERSTANDING. PT AMBULATORY WITH WALKER, STEADY GAIT. DENIES SOB OR DIZZINESS WHEN AMBULATING. PT EDUCATED ON FALL PRECAUTIONS. WILL CONTINUE TO MONITOR.
--- NOTE | 2019-01-29 11:43 | NUR ---
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
[2019-01-29 12:00] VITALS: BP 136/73
--- NOTE | 2019-01-29 12:53 | NUR ---
NURSE NOTES: RN MADE DR MARIO AWARE DR HARO WILL NOT BE AVAILABLE FOR REMOVAL IF IVC FILTER UNTIL NEXT WEEK. PER DR MARIO, HE WILL CHECK THE CHART. NO NEW ORDERS GIVEN.
--- NOTE | 2019-01-29 13:06 | NUR ---
NURSE NOTES: RN SPOKE TO DR MARIO REGARDING POTASSIUM LEVEL 3.3 TODAY, ORDER FOR KDUR 40MEQ AND CHECK MAGNESIUM KAB LEVEL TOMORROW. PER DR MARIO, PT WILL NOT BE DISCHARGED DUE TO POSSIBLE INFECTION OF LEFT KNEE AND REFERRAL AND INFORMATION AIDE NEED TO ADD NOTES TO PT'S WORKMEN'S COMP, NOT HIS HMO.
--- NOTE | 2019-01-29 13:19 | NUR ---
NURSE NOTES: RN SPOKE TO CLEO, CASE MANAGEMENT, AND MADE AWARE RN SPOKE TO DR MARIO AND PER , PT WILL NOT BE DISCHARGED.
[2019-01-29] MEDS: Vancomycin 750mg/NS 275ml IVPB SCH ×2 (15:20)
[2019-01-29 16:00] VITALS: BP 116/68
[2019-01-29] MEDS: traMADol 50mg tab ORAL PRN (17:38)
--- NOTE | 2019-01-29 18:32 | Consultation ---
History of Present Illness General Date patient seen: Jan 29, 2019 Chief Complaint: Pain Present Illness HPI 53 y/o M with hx of HTN, MDD, obesity, asthma, L LE DVT s/p IVC filter, s/p gastric bypass surgery s/p L TKR November 2018 after a work injury presents to ED on 01/24 with 6 days of L knee/leg/ankle pain, warmth, redness and swelling. Symptoms started after he went for a walk. +generalized abd pain. Denied f/c, night sweats Allergies: Coded Allergies: NEOMYCIN (Unverified Allergy, Unknown, 11/19/18) POLYMYXIN B (Unverified Allergy, Unknown, 11/19/18) Medication History Scheduled Albuterol Sulfate* (Proair Hfa*), 1 PUFF INH Q6H, (Reported) Alprazolam (Alprazolam), 0.5 MG ORAL BID, (Reported) Cyclobenzaprine Hcl (Cyclobenzaprine Hcl), 10 MG ORAL BID, (Reported) Enoxaparin* (Lovenox*), 30 MG SUBQ EVERY 12 HOURS, (Reported) Enoxaparin* (Lovenox*), 30 MG SUBQ EVERY 12 HOURS, (Reported) Gabapentin* (Gabapentin*), 300 MG ORAL DAILY, (Reported) No Known Medications* (NKM - No Known Medications*), 0 ., (Reported) Ranitidine Hcl* (Zantac*), 150 MG ORAL TWICE A DAY, (Reported) Tramadol Hcl/Acetaminophen (Tramadol-Acetaminophn 37.5-325), 1 TAB ORAL Q6HR, ( Reported) Trazodone Hcl (Trazodone Hcl), 100 MG ORAL BEDTIME, (Reported) Scheduled PRN Alprazolam* (Xanax*), 2 MG ORAL Q8HR PRN for For Anxiety, (Reported) Tramadol Hcl* (Ultram*), 37.5 MG ORAL Q6H PRN for For Pain, (Reported) Patient History Healthcare decision maker N Resuscitation status Advanced Directive on File Patient History Narrative Pmhx: as above Shx: No history of smoking or alcohol abuse. Fhx: non contributory Review of Systems All Other Systems: negative except mentioned in HPI Physical Exam Physical Exam Narrative GENERAL: The patient is an obese male, in no acute distress. HEENT: [place] conjunctivae. Anicteric sclerae. NECK: Supple. LUNGS: Clear to auscultation. HEART: S1, S2 without murmurs or rubs. ABDOMEN: Soft, nontender. EXTREMITIES: The patient has redness of the left knee and swelling distending distally. Last 24 Hour Vital Signs Date Time Temp Pulse Resp B/P (MAP) Pulse Ox O2 Delivery O2 Flow Rate FiO2 01/29/19 16:00 97.9 73 18 116/68 (84) 100 01/29/19 13:27 81 18 98 Room Air 21 01/29/19 13:27 88 20 97 Room Air 21 01/29/19 12:00 98.2 82 16 136/73 (94) 100 01/29/19 09:00 Room Air 01/29/19 08:00 84 18 98 Room Air 21 01/29/19 08:00 98.1 71 17 164/90 (114) 98 01/29/19 08:00 81 18 98 Room Air 21 01/29/19 04:00 98.3 70 18 125/76 (92) 99 01/29/19 01:11 64 16 99 Room Air 21 01/29/19 01:11 64 16 98 Room Air 21 01/29/19 00:00 97.7 64 18 125/61 (82) 98 01/28/19 21:00 Room Air 01/28/19 20:00 98.2 67 18 131/82 (98) 98 01/28/19 19:29 70 16 100 Room Air 21 01/28/19 19:29 70 16 100 Room Air 21 Intake and Output 01/28/19 01/29/19 19:00 07:00 Intake Total 1240 ml 367.416 ml Balance 1240 ml 367.416 ml Intake Oral 1240 ml IV Total 367.416 ml # Voids 3 2 Laboratory Tests Test 01/29/19 05:40 01/29/19 13:33 White Blood Count 2.4 K/UL (4.8-10.8) L Red Blood Count 4.09 M/UL (4.70-6.10) L Hemoglobin 12.3 G/DL (14.2-18.0) L Hematocrit 37.2 % (42.0-52.0) L Mean Corpuscular Volume 91 FL (80-99) Mean Corpuscular Hemoglobin 30.1 PG (27.0-31.0) Mean Corpuscular Hemoglobin Concent 33.1 G/DL (32.0-36.0) Red Cell Distribution Width 13.2 % (11.6-14.8) Platelet Count 223 K/UL (150-450) Mean Platelet Volume 6.0 FL (6.5-10.1) L Neutrophils (%) (Auto) % (45.0-75.0) Lymphocytes (%) (Auto) % (20.0-45.0) Monocytes (%) (Auto) % (1.0-10.0) Eosinophils (%) (Auto) % (0.0-3.0) Basophils (%) (Auto) % (0.0-2.0) Differential Total Cells Counted 100 Neutrophils % (Manual) 32 % (45-75) L Lymphocytes % (Manual) 54 % (20-45) H Monocytes % (Manual) 10 % (1-10) Eosinophils % (Manual) 3 % (0-3) Basophils % (Manual) 1 % (0-2) Band Neutrophils 0 % (0-8) Platelet Estimate Adequate Platelet Morphology Normal Red Blood Cell Morphology Normal Sodium Level 143 MMOL/L (136-145) Potassium Level 3.3 MMOL/L (3.5-5.1) L Chloride Level 106 MMOL/L (98-107) Carbon Dioxide Level 31 MMOL/L (21-32) Anion Gap 6 mmol/L (5-15) Blood Urea Nitrogen 13 mg/dL (7-18) Creatinine 1.1 MG/DL (0.55-1.30) Estimat Glomerular Filtration Rate > 60 mL/min (>60) Glucose Level 83 MG/DL (74-106) Calcium Level 8.7 MG/DL (8.5-10.1) Vancomycin Level Trough 17.2 ug/mL (5.0-12.0) H Height (Feet): 6 Height (Inches): 0.00 Weight (Pounds): 290 Medications Current Medications Medications (Trade) Dose Ordered Sig/Jeremy Route PRN Reason Start Time Stop Time Status Last Admin Dose Admin Albuterol Sulfate (Proventil MDI) 1 puff Q6HRT INH 01/25/19 01:00 02/24/19 00:59 01/29/19 13:26 Celecoxib (CeleBREX) 200 mg TWICE A DAY ORAL 01/28/19 18:00 01/31/19 17:59 01/29/19 17:36 Dextrose (Dextrose 50%) 25 ml Q30M PRN IV Hypoglycemia 01/24/19 23:00 02/23/19 22:59 Dextrose (Dextrose 50%) 50 ml Q30M PRN IV Hypoglycemia 01/24/19 23:00 02/23/19 22:59 Enoxaparin Sodium (Lovenox) 30 mg EVERY 12 HOURS SUBQ 01/25/19 09:00 02/24/19 08:59 01/29/19 08:51 Famotidine (Pepcid) 20 mg BID ORAL 01/25/19 09:00 02/24/19 08:59 01/29/19 17:35 Gabapentin (Neurontin) 300 mg DAILY ORAL 01/25/19 09:00 02/24/19 08:59 01/29/19 08:45 Hydromorphone HCl (Dilaudid) 2 mg Q3H PRN IVP Severe Pain (Pain Scale 7-10) 01/24/19 23:00 01/31/19 22:59 01/29/19 15:20 Lorazepam (Ativan) 1 mg QHS PRN ORAL For Anxiety 01/27/19 12:15 02/03/19 12:14 01/28/19 20:53 Magnesium Hydroxide (Mom) 30 ml HSPRN PRN ORAL Constipation 01/24/19 23:00 02/23/19 22:59 Ondansetron HCl (Zofran) 4 mg Q6H PRN IVP Nausea & Vomiting 01/25/19 18:00 02/24/19 17:59 01/25/19 18:03 Tramadol HCl (Ultram) 50 mg Q6H PRN ORAL Moderate Pain (Pain Scale 4-6) 01/25/19 14:14 02/01/19 14:13 01/29/19 17:38 Trazodone HCl (Desyrel) 100 mg BEDTIME ORAL 01/25/19 21:00 02/24/19 20:59 01/28/19 20:46 Vancomycin HCl (Vanco rx to dose) 1 ea DAILY PRN MISC Per rx protocol 01/25/19 14:15 02/24/19 14:14 Vancomycin HCl 750 mg/Sodium Chloride 275 ml @ 183.333 mls/hr Q8HR@0000,0800,1600 IVPB 01/29/19 16:00 02/03/19 15:59 01/29/19 15:20 Assessment/Plan Assessment/Plan: Abx: IV Vancomycin 01/25- Ceftriaxone x1 01/24 Ancef 01/24- Assessment: R knee pain- suspicion for early prosthetic knee infection (+pain, swelling, warmth) -xray knee: Small joint effusion. No acute bony trauma. Well aligned knee arthroplasty prosthesis -V. duplex : no DVT -ESR, CRP normal Afebrile Mild leukopenia s/p L TKR November 2018 after a work injury HTN MDD obesity asthma L LE DVT s/p IVC filter s/p gastric bypass surgery Plan: -Continue empiric IV Vancomycin #5 and start Cefepime for PSA coverage -f/u cx -Monitor CBC/CMP, temperatures -Ortho f.u -HIV ab am -WBC scan of L knee to further evaluate -If safe, synovial fluid analysis and culture is recommended Thank you for this consultation. Will continue to follow along with you. Discussed with Yoselin Chris M.D. Jan 29, 2019 18:32
--- NOTE | 2019-01-29 19:16 | NUR ---
HAND-OFF: Report given to Yobany OHARA RN.
--- NOTE | 2019-01-29 19:20 | NUR ---
NURSE NOTES: RECEIVED PT FROM RITO ROSA. PT IS AWAKE, AAOX4, ON ROOM AIR, DENIES SOB. C/O 9/10 PAIN ON LEFT KNEE. SWELLING, AND REDNESS NOTED ON LEFT LEG. PT DENIES ICE PACK AT THE MOMENT. REQUESTED FOR PRN PAIN MEDICATION. IV ON RIGHT FA 22G IS INTACT AND PATENT. WALKER AT BEDSIDE. BED IS LOCKED AT THE LOWEST POSITION, BED ALARMS ACTIVE, SIDE RAILS UP X2, AND CALL LIGHT IS WITHIN REACH. WILL CONTINUE TO MONITOR.
--- NOTE | 2019-01-29 19:38 | General Progress Note ---
Assessment/Plan Status Narrative s/p tkr was on anticoag ? hemarthrosis the DVT is cleared [per id adn ortho consider adding clochicine nad see if he repsonds. Subjective Date patient seen: Jan 29, 2019 Time patient seen: 19:36 Constitutional: Reports: no symptoms HEENT: Reports: no symptoms Cardiovascular: Reports: no symptoms Gastrointestinal/Abdominal: Reports: no symptoms Allergies: Coded Allergies: NEOMYCIN (Unverified Allergy, Unknown, 11/19/18) POLYMYXIN B (Unverified Allergy, Unknown, 11/19/18) Subjective knwee i sswiollen no fever no chills Objective Last 24 Hour Vital Signs Date Time Temp Pulse Resp B/P (MAP) Pulse Ox O2 Delivery O2 Flow Rate FiO2 01/29/19 16:00 97.9 73 18 116/68 (84) 100 01/29/19 13:27 81 18 98 Room Air 21 01/29/19 13:27 88 20 97 Room Air 21 01/29/19 12:00 98.2 82 16 136/73 (94) 100 01/29/19 09:00 Room Air 01/29/19 08:00 84 18 98 Room Air 21 01/29/19 08:00 98.1 71 17 164/90 (114) 98 01/29/19 08:00 81 18 98 Room Air 21 01/29/19 04:00 98.3 70 18 125/76 (92) 99 01/29/19 01:11 64 16 99 Room Air 21 01/29/19 01:11 64 16 98 Room Air 21 01/29/19 00:00 97.7 64 18 125/61 (82) 98 01/28/19 21:00 Room Air 01/28/19 20:00 98.2 67 18 131/82 (98) 98 Intake and Output 01/28/19 01/29/19 19:00 07:00 Intake Total 1240 ml 367.416 ml Balance 1240 ml 367.416 ml Intake Oral 1240 ml IV Total 367.416 ml # Voids 3 2 Laboratory Tests 01/29/19 05:40: White Blood Count 2.4L, Red Blood Count 4.09L, Hemoglobin 12.3L, Hematocrit 37.2L, Mean Corpuscular Volume 91, Mean Corpuscular Hemoglobin 30.1, Mean Corpuscular Hemoglobin Concent 33.1, Red Cell Distribution Width 13.2, Platelet Count 223, Mean Platelet Volume 6.0L, Neutrophils (%) (Auto) , Lymphocytes (%) ( Auto) , Monocytes (%) (Auto) , Eosinophils (%) (Auto) , Basophils (%) (Auto) , Differential Total Cells Counted 100, Neutrophils % (Manual) 32L, Lymphocytes % (Manual) 54H, Monocytes % (Manual) 10, Eosinophils % (Manual) 3, Basophils % ( Manual) 1, Band Neutrophils 0, Platelet Estimate Adequate, Platelet Morphology Normal, Red Blood Cell Morphology Normal, Sodium Level 143, Potassium Level 3.3L , Chloride Level 106, Carbon Dioxide Level 31, Anion Gap 6, Blood Urea Nitrogen 13, Creatinine 1.1, Estimat Glomerular Filtration Rate > 60, Glucose Level 83, Calcium Level 8.7 01/29/19 13:33: Vancomycin Level Trough 17.2H Height (Feet): 6 Height (Inches): 0.00 Weight (Pounds): 290 General Appearance: WD/WN Neck: non-tender Cardiovascular: normal rate, regular rhythm, no JVD Respiratory/Chest: lungs clear Abdomen: non tender, soft Extremities: other - knkee swollen on tender minimally Jeff Horton MD Jan 29, 2019 19:38
[2019-01-29] MEDS: TraZODone 100mg tab ORAL SCH (20:52)
[2019-01-29] MEDS: Cefepime HCl 2 GM in D5W 55 ML IVPB SCH (21:28)
[2019-01-30] VITALS: BP 133/89
[2019-01-30] MEDS: LORazepam 1mg tab ORAL PRN (00:06)
[2019-01-30] MEDS: Vancomycin 750mg/NS 275ml IVPB SCH ×8 (00:07→23:06)
[2019-01-30] MEDS: traMADol 50mg tab ORAL PRN (00:25)
[2019-01-30] MEDS: Albuterol 90mcg Inhaler 8gm INH SCH ×4 (01:00→19:41)
--- NOTE | 2019-01-30 07:21 | NUR ---
HAND-OFF: Report given to RITO ROSA.
[2019-01-30 08:00] VITALS: BP 134/83
[2019-01-30] MEDS: celeBREX 200mg Cap **SURGERY PATIENTS ONLY ORAL SCH ×2 (08:04→17:28)
[2019-01-30] MEDS: Enoxaparin 30mg Inj SUBQ SCH ×2 (08:05→20:11)
--- NOTE | 2019-01-30 08:10 | NUR ---
Regarding WBC Scan: Per Pharmacist Oren at [facility], they are sold out of the material to do Indium WBC labeling until next delivery anticipated over the weekend. Will schedule WBC labeling for Sunday02/03/19. Informed RN. Addendum: 01/30/19 at 1240 by ALIYAH ALBRECHT Explained procedure and time-frame for procedure to patient. Patient is agreeable. Blood pickup for WBC labeling scheduled for 0900hrs 02/03/19.
[2019-01-30 08:33] LABS: HEMATOCRIT 37.6 % (42.0-52.0); HEMOGLOBIN 12.3 G/DL (14.2-18.0); MEAN CORPUSCULAR VOLUME 91 FL (80-99); PLATELET COUNT 228 K/UL (150-450); RED BLOOD COUNT 4.11 M/UL (4.70-6.10); WHITE BLOOD COUNT 2.4 K/UL (4.8-10.8)
[2019-01-30 08:57] LABS: ANION GAP 7 mmol/L (5-15); BLOOD UREA NITROGEN 15 mg/dL (7-18); CALCIUM 8.6 MG/DL (8.5-10.1); CARBON DIOXIDE 29 MMOL/L (21-32); CHLORIDE 106 MMOL/L (98-107); POTASSIUM 4.1 MMOL/L (3.5-5.1); SODIUM 142 MMOL/L (136-145)
[2019-01-30] MEDS: Cefepime HCl 2 GM in D5W 55 ML IVPB SCH ×2 (09:37→20:04)
--- NOTE | 2019-01-30 11:51 | Infectious Diseases Prog Note ---
Assessment/Plan Assessment/Plan Abx: IV Vancomycin 01/25- Ceftriaxone x1 01/24 Ancef 01/24- Assessment: R knee pain- suspicion for early prosthetic knee infection (+pain, swelling, warmth) vs hemarthrosis (+use of anticoagulants) -xray knee: Small joint effusion. No acute bony trauma. Well aligned knee arthroplasty prosthesis -V. duplex : no DVT -ESR, CRP normal Afebrile Mild leukopenia -HIV ab screen neg s/p L TKR November 2018 after a work injury HTN MDD obesity asthma L LE DVT s/p IVC filter s/p gastric bypass surgery Plan: -Continue empiric IV Vancomycin #6 and start Cefepime #2 for PSA coverage -01/25 SP Ancef #2 -01/24 SP Ceftriaxone x1 -f/u cx -Monitor CBC/CMP, temperatures -Ortho f.u -f/u WBC scan of L knee to further evaluate -If safe, synovial fluid analysis and culture is recommended Thank you for this consultation. Will continue to follow along with you. Discussed with RN. Subjective Allergies: Coded Allergies: NEOMYCIN (Unverified Allergy, Unknown, 11/19/18) POLYMYXIN B (Unverified Allergy, Unknown, 11/19/18) Subjective afebrile no leukocytosis Objective Vital Signs Last 24 Hour Vital Signs Date Time Temp Pulse Resp B/P (MAP) Pulse Ox O2 Delivery O2 Flow Rate FiO2 01/30/19 09:00 Room Air 01/30/19 08:30 85 20 97 Room Air 01/30/19 08:30 85 20 96 Room Air 01/30/19 08:00 98.1 90 18 134/83 (100) 95 01/30/19 04:06 65 16 99 Room Air 01/30/19 01:02 Room Air 21 01/30/19 01:01 Room Air 01/30/19 00:55 97.9 01/30/19 00:00 97.8 63 18 133/89 (104) 99 01/29/19 21:00 Room Air 01/29/19 19:58 73 18 100 Room Air 01/29/19 19:57 74 20 100 Room Air 01/29/19 16:00 97.9 73 18 116/68 (84) 100 01/29/19 13:27 81 18 98 Room Air 21 6/26/19 13:27 88 20 97 Room Air 21 01/29/19 12:00 98.2 82 16 136/73 (94) 100 Height (Feet): 6 Height (Inches): 0.00 Weight (Pounds): 290 Objective GENERAL: The patient is an obese male, in no acute distress. HEENT: [place] conjunctivae. Anicteric sclerae. NECK: Supple. LUNGS: Clear to auscultation. HEART: S1, S2 without murmurs or rubs. ABDOMEN: Soft, nontender. EXTREMITIES: The patient has redness of the left knee and swelling distending distally. Laboratory Tests Test 01/29/19 13:33 01/30/19 07:00 Vancomycin Level Trough 17.2 ug/mL (5.0-12.0) H White Blood Count 2.4 K/UL (4.8-10.8) L Red Blood Count 4.11 M/UL (4.70-6.10) L Hemoglobin 12.3 G/DL (14.2-18.0) L Hematocrit 37.6 % (42.0-52.0) L Mean Corpuscular Volume 91 FL (80-99) Mean Corpuscular Hemoglobin 29.8 PG (27.0-31.0) Mean Corpuscular Hemoglobin Concent 32.6 G/DL (32.0-36.0) Red Cell Distribution Width 13.0 % (11.6-14.8) Platelet Count 228 K/UL (150-450) Mean Platelet Volume 5.7 FL (6.5-10.1) L Neutrophils (%) (Auto) % (45.0-75.0) Lymphocytes (%) (Auto) % (20.0-45.0) Monocytes (%) (Auto) % (1.0-10.0) Eosinophils (%) (Auto) % (0.0-3.0) Basophils (%) (Auto) % (0.0-2.0) Differential Total Cells Counted 100 Neutrophils % (Manual) 29 % (45-75) L Lymphocytes % (Manual) 57 % (20-45) H Monocytes % (Manual) 8 % (1-10) Eosinophils % (Manual) 4 % (0-3) H Basophils % (Manual) 2 % (0-2) Band Neutrophils 0 % (0-8) Platelet Estimate Adequate Platelet Morphology Normal Sodium Level 142 MMOL/L (136-145) Potassium Level 4.1 MMOL/L (3.5-5.1) Chloride Level 106 MMOL/L (98-107) Carbon Dioxide Level 29 MMOL/L (21-32) Anion Gap 7 mmol/L (5-15) Blood Urea Nitrogen 15 mg/dL (7-18) Creatinine 1.0 MG/DL (0.55-1.30) Estimat Glomerular Filtration Rate > 60 mL/min (>60) Glucose Level 114 MG/DL (74-106) H Calcium Level 8.6 MG/DL (8.5-10.1) Magnesium Level 2.0 MG/DL (1.8-2.4) HIV (1&2) Antibody Rapid Negative (NEGATIVE) Current Medications Medications (Trade) Dose Ordered Sig/Jeremy Route PRN Reason Start Time Stop Time Status Last Admin Dose Admin Albuterol Sulfate (Proventil MDI) 1 puff Q6HRT INH 01/25/19 01:00 02/24/19 00:59 01/30/19 08:29 Cefepime HCl 2 gm/ Dextrose 55 ml @ 110 mls/hr EVERY 12 HOURS IVPB 01/29/19 21:00 02/05/19 20:59 01/30/19 09:37 Celecoxib (CeleBREX) 200 mg TWICE A DAY ORAL 01/28/19 18:00 01/31/19 17:59 01/30/19 08:04 Colchicine (Colchicine) 0.6 mg Q12HR ORAL 01/29/19 21:00 02/01/19 09:01 01/30/19 08:03 Dextrose (Dextrose 50%) 25 ml Q30M PRN IV Hypoglycemia 01/24/19 23:00 02/23/19 22:59 Dextrose (Dextrose 50%) 50 ml Q30M PRN IV Hypoglycemia 01/24/19 23:00 02/23/19 22:59 Enoxaparin Sodium (Lovenox) 30 mg EVERY 12 HOURS SUBQ 01/25/19 09:00 02/24/19 08:59 01/30/19 08:05 Famotidine (Pepcid) 20 mg BID ORAL 01/25/19 09:00 02/24/19 08:59 01/30/19 08:03 Gabapentin (Neurontin) 300 mg DAILY ORAL 01/25/19 09:00 02/24/19 08:59 01/30/19 08:03 Hydromorphone HCl (Dilaudid) 2 mg Q3H PRN IVP Severe Pain (Pain Scale 7-10) 01/24/19 23:00 01/31/19 22:59 01/30/19 08:00 Lorazepam (Ativan) 1 mg QHS PRN ORAL For Anxiety 01/27/19 12:15 02/03/19 12:14 01/30/19 00:06 Magnesium Hydroxide (Mom) 30 ml HSPRN PRN ORAL Constipation 01/24/19 23:00 02/23/19 22:59 Ondansetron HCl (Zofran) 4 mg Q6H PRN IVP Nausea & Vomiting 01/25/19 18:00 02/24/19 17:59 01/25/19 18:03 Tramadol HCl (Ultram) 50 mg Q6H PRN ORAL Moderate Pain (Pain Scale 4-6) 01/25/19 14:14 02/01/19 14:13 01/30/19 00:25 Trazodone HCl (Desyrel) 100 mg BEDTIME ORAL 01/25/19 21:00 02/24/19 20:59 01/29/19 20:52 Vancomycin HCl (Vanco rx to dose) 1 ea DAILY PRN MISC Per rx protocol 01/25/19 14:15 02/24/19 14:14 Vancomycin HCl 750 mg/Sodium Chloride 275 ml @ 183.333 mls/hr Q8HR@0000,0800,1600 IVPB 01/29/19 16:00 02/03/19 15:59 01/30/19 07:53 Yoselin Emanuel M.D. Jan 30, 2019 11:51
[2019-01-30 12:00] VITALS: BP 140/80
--- NOTE | 2019-01-30 12:33 | Diagnostic Imaging Report ---
APPROVED REPORT CPT Code: 61003 Present Symptoms Comments: Cellulitis Edema BILATERAL: Imaging reveals a patent deep venous system bilaterally. There is no evidence of thrombus within the common femoral, superficial femoral, popliteal or tibial segments. The greater saphenous veins are within normal limits. Doppler indicates normal spontaneous flow within these segments.
--- NOTE | 2019-01-30 13:20 | NUR ---
*-* INSURANCE *-* UPDATED CLINICALS HAVE BEEN FAXED TO: [facility] SAM: ROMEL P:[phone] F:[phone]
--- NOTE | 2019-01-30 14:10 | NUR ---
NURSE NOTES: PT AXOX4, CALM ,RESTING IN BED. IN NO APPARENT DISTRESS AT TH IS TIME. LEFT KNEE SWOLLEN AND HOT TO TOUCH. PT PROVIDED WITH ICE TO PLACE ON KNEE THREE TIMES A DAY FOR 1 HOUR INTERVAL. PT HAS CONSTANT PAIN OF LEFT KNEE AND EDUCATED ON PRN PAIN MEDICATIONS. RN SPOKE TO ALIYAH [place], AND STATES MATERIAL FOR NM INDIUM SCAN NOT AVAILABLE UNTIL DELIVERY THIS COMING SUNDAY. PROCEDURE POSTPONED FOR SundayFEBRUARY 03. TECH SPOKE TO PT AT BEDSIDE AND EDUCATED ON PROCEDURE.
--- NOTE | 2019-01-30 15:50 | NUR ---
CASE MANAGE REVIEW SI:LEFT KNEE CELLULITIS VS: BP 140/80, P 90, T 98.1, RR 20, SpO2 95 WBC 2.4, RBC 4.11, H&H 12.3/37.6 IS:ALBUTEROL 1puff DILAUDID 2mg IVP CEFEPIME 55ml IVPB CELEBREX 200mg GABAPENTIN 300mg VANCOMYCIN 275ml IVPB TRAMADOL 50mg LORAZEPAM 1mg MED/SURG STATUS
[2019-01-30 16:00] VITALS: BP 155/80
--- NOTE | 2019-01-30 19:22 | NUR ---
HAND-OFF: Report given to Irina RAMÍREZ RN.
--- NOTE | 2019-01-30 19:30 | NUR ---
NURSE NOTES: Patient received sitting in bed, awake and alert. No acute distress at this time. IV LFA 24g intact. Walker at bedside. Call light in reach. Instructed to call for assistance, verbalized understanding. Will continue to monitor.
[2019-01-30 20:00] VITALS: BP 141/91
--- NOTE | 2019-01-30 20:15 | NUR ---
NURSE NOTES: Patient request for trazadone to be given after IV Vanco at midnight. Trazadone returned to pyxis.
[2019-01-30 23:52] VITALS: BP 157/78
[2019-01-31] VITALS (20 sets, daily range): BP systolic 129–192; BP diastolic 75–115
[2019-01-31] MEDS: TraZODone 100mg tab ORAL SCH ×2 (00:38→21:23)
[2019-01-31] MEDS: LORazepam 1mg tab ORAL PRN ×2 (00:41→21:27)
[2019-01-31] MEDS: Albuterol 90mcg Inhaler 8gm INH SCH ×4 (00:43→19:38)
[2019-01-31 06:57] LABS: ANION GAP 6 mmol/L (5-15); BLOOD UREA NITROGEN 15 mg/dL (7-18); CALCIUM 8.6 MG/DL (8.5-10.1); CARBON DIOXIDE 29 MMOL/L (21-32); CHLORIDE 110 MMOL/L (98-107); CREATININE 0.9 MG/DL (0.55-1.30); SODIUM 145 MMOL/L (136-145)
--- NOTE | 2019-01-31 07:35 | NUR ---
HAND-OFF: Report given to Chelly VERAS.
[2019-01-31] MEDS: celeBREX 200mg Cap **SURGERY PATIENTS ONLY ORAL SCH (07:52)
[2019-01-31] MEDS: Enoxaparin 30mg Inj SUBQ SCH ×3 (08:46→21:24)
[2019-01-31] MEDS: Cefepime HCl 2 GM in D5W 55 ML IVPB SCH ×2 (08:56→21:23)
[2019-01-31] MEDS: Vancomycin 750mg/NS 275ml IVPB SCH ×4 (09:39→17:15)
[2019-01-31] MEDS ORDERED: traMADol 50mg tab ORAL PRN (10:04)
--- NOTE | 2019-01-31 10:26 | NUR ---
NURSE NOTES: pt in bed with no sob nor in any form of distress noted. all due meds given as ordered. awaiting for procedure for IVC filter removal. will continue to monitor
--- NOTE | 2019-01-31 10:46 | NUR ---
*-* INSURANCE *-* ALL CLINICALS AND REVIEWS HAVE BEEN FAXED TO BOTH: [facility] NCM: ROMEL P:[phone] F:[phone] & [facility]JEFFREY P: [phone] X 1352 F: [phone]
--- NOTE | 2019-01-31 10:46 | NUR ---
Social Work Chart Reviewed. Patient is from home with nephew and using FWW with ambulation and remains independent with P.T. P.T recommended outpatient services, as needed. No other SW needs identified at this time. SW to follow further, as needed.
--- NOTE | 2019-01-31 11:24 | Infectious Diseases Prog Note ---
Assessment/Plan Assessment/Plan Abx: IV Vancomycin 01/25- Ceftriaxone x1 01/24 Ancef 01/24- Assessment: R knee pain- suspicion for early prosthetic knee infection (+pain, swelling, warmth) vs hemarthrosis (+use of anticoagulants) -xray knee: Small joint effusion. No acute bony trauma. Well aligned knee arthroplasty prosthesis -V. duplex : no DVT -ESR, CRP normal Afebrile Mild leukopenia -HIV ab screen neg s/p L TKR November 2018 after a work injury HTN MDD obesity asthma L LE DVT s/p IVC filter s/p gastric bypass surgery Plan: -Continue empiric IV Vancomycin #7 and start Cefepime #3 for PSA coverage -01/25 SP Ancef #2 -01/24 SP Ceftriaxone x1 -f/u cx -Monitor CBC/CMP, temperatures -Ortho f.u -f/u WBC scan of L knee to further evaluate -If safe, synovial fluid analysis and culture is recommended Thank you for this consultation. Will continue to follow along with you. Discussed with RN. Subjective Allergies: Coded Allergies: NEOMYCIN (Unverified Allergy, Unknown, 11/19/18) POLYMYXIN B (Unverified Allergy, Unknown, 11/19/18) Subjective afebrile no leukocytosis Objective Vital Signs Last 24 Hour Vital Signs Date Time Temp Pulse Resp B/P (MAP) Pulse Ox O2 Delivery O2 Flow Rate FiO2 01/31/19 09:00 Room Air 01/31/19 08:55 84 18 98 Room Air 01/31/19 08:55 84 18 98 Room Air 01/31/19 08:00 98.3 92 18 134/75 (94) 98 01/31/19 04:00 98.3 67 18 129/80 (96) 99 01/31/19 00:45 76 20 97 Room Air 21 01/31/19 00:43 78 20 97 Room Air 01/30/19 23:52 98.4 66 18 157/78 (104) 100 01/30/19 21:00 Room Air 01/30/19 20:00 97.8 69 18 141/91 (108) 99 01/30/19 19:43 75 20 98 Room Air 21 01/30/19 19:41 75 20 98 Room Air 21 01/30/19 16:00 97.6 69 17 155/80 (105) 95 01/30/19 13:50 81 20 98 Room Air 21 01/30/19 13:50 81 20 98 Room Air 21 01/30/19 12:00 98.1 72 17 140/80 (100) 99 Height (Feet): 6 Height (Inches): 0.00 Weight (Pounds): 290 Objective GENERAL: The patient is an obese male, in no acute distress. HEENT: [place] conjunctivae. Anicteric sclerae. NECK: Supple. LUNGS: Clear to auscultation. HEART: S1, S2 without murmurs or rubs. ABDOMEN: Soft, nontender. EXTREMITIES: The patient has redness of the left knee and swelling distending distally. Laboratory Tests Test 01/31/19 05:15 Sodium Level 145 MMOL/L (136-145) Potassium Level 4.0 MMOL/L (3.5-5.1) Chloride Level 110 MMOL/L (98-107) H Carbon Dioxide Level 29 MMOL/L (21-32) Anion Gap 6 mmol/L (5-15) Blood Urea Nitrogen 15 mg/dL (7-18) Creatinine 0.9 MG/DL (0.55-1.30) Estimat Glomerular Filtration Rate > 60 mL/min (>60) Glucose Level 74 MG/DL (74-106) Calcium Level 8.6 MG/DL (8.5-10.1) Current Medications Medications (Trade) Dose Ordered Sig/Jeremy Route PRN Reason Start Time Stop Time Status Last Admin Dose Admin Albuterol Sulfate (Proventil MDI) 1 puff Q6HRT INH 01/25/19 01:00 02/24/19 00:59 01/31/19 07:00 Cefepime HCl 2 gm/ Dextrose 55 ml @ 110 mls/hr EVERY 12 HOURS IVPB 01/29/19 21:00 02/05/19 20:59 01/31/19 08:56 Celecoxib (CeleBREX) 200 mg TWICE A DAY ORAL 01/28/19 18:00 01/31/19 17:59 01/30/19 17:28 Colchicine (Colchicine) 0.6 mg Q12HR ORAL 01/29/19 21:00 02/01/19 09:01 01/31/19 08:44 Dextrose (Dextrose 50%) 25 ml Q30M PRN IV Hypoglycemia 01/24/19 23:00 02/23/19 22:59 Dextrose (Dextrose 50%) 50 ml Q30M PRN IV Hypoglycemia 01/24/19 23:00 02/23/19 22:59 Enoxaparin Sodium (Lovenox) 30 mg EVERY 12 HOURS SUBQ 01/25/19 09:00 02/24/19 08:59 01/30/19 20:11 Famotidine (Pepcid) 20 mg BID ORAL 01/25/19 09:00 02/24/19 08:59 01/31/19 08:44 Gabapentin (Neurontin) 300 mg DAILY ORAL 01/25/19 09:00 02/24/19 08:59 01/31/19 08:44 Hydromorphone HCl (Dilaudid) 2 mg Q3H PRN IVP Severe Pain (Pain Scale 7-10) 01/24/19 23:00 01/31/19 22:59 01/30/19 23:10 Lorazepam (Ativan) 1 mg QHS PRN ORAL For Anxiety 01/27/19 12:15 02/03/19 12:14 01/31/19 00:41 Magnesium Hydroxide (Mom) 30 ml HSPRN PRN ORAL Constipation 01/24/19 23:00 02/23/19 22:59 Ondansetron HCl (Zofran) 4 mg Q6H PRN IVP Nausea & Vomiting 01/25/19 18:00 02/24/19 17:59 01/25/19 18:03 Tramadol HCl (Ultram) 50 mg Q6H PRN ORAL Moderate Pain (Pain Scale 4-6) 01/31/19 10:04 02/07/19 10:03 Trazodone HCl (Desyrel) 100 mg BEDTIME ORAL 01/25/19 21:00 02/24/19 20:59 01/31/19 00:38 Vancomycin HCl (Vanco rx to dose) 1 ea DAILY PRN MISC Per rx protocol 01/25/19 14:15 02/24/19 14:14 Vancomycin HCl 750 mg/Sodium Chloride 275 ml @ 183.333 mls/hr Q8HR@0000,0800,1600 IVPB 01/29/19 16:00 02/03/19 15:59 01/31/19 09:39 Yoselin Emanuel M.D. Jan 31, 2019 11:24
--- NOTE | 2019-01-31 12:54 | NUR ---
FLEECE TIERSEAT NAILER SI:PROSTHETIC KNEE INFECTION VS: 148/91, P 92, T 98.2, RR 18, SpO2 97 IS:VANCOMYCIN 275mL IVPB CEFEPIME 55ml IVPB GABAPENTIN 300mG COLCHICINE 0.6mg ALBUTEROL 1puff INH DESYREL 100mg MED/SURG STATUS
--- NOTE | 2019-01-31 13:53 | Pre-Procedure Note/Attestation ---
Pre-Procedure Note/Attestation Complete Prior to Procedure Planned Procedure: not applicable Procedure Narrative: IVC filter removal Indications for Procedure Pre-Operative Diagnosis: IVC filter no longer needed Attestation I attest that I discussed the nature of the procedure; its benefits; risks and complications; and alternatives (and the risks and benefits of such alternatives ), prior to the procedure, with the patient (or the patient's legal traveling sales representative). I attest that I re-evaluated the patient just prior to the surgery and that there has been no change in the patient's H&P, except as documented below: Franco Cifuentes M.D. Jan 31, 2019 13:53
[2019-01-31] MEDS ORDERED: Lidocaine 1% Plain 30 ml INJ ONE (13:55)
--- NOTE | 2019-01-31 14:11 | NUR ---
RD ASSESSMENT & RECOMMENDATIONS SEE CARE ACTIVITY FOR COMPLETE ASSESSMENT DAILY ESTIMATED NEEDS: Needs based on Obesity 93kg adj 20-25 kcals/kg 8093-8960 total kcals 1-1.2 g protein/kg 93-111 g total protein 25-30 mL/kg 8725-4803 total fluid mLs NUTRITION DIAGNOSIS: Obesity R/T life style factors, excessive energy intake as evidenced by BMI of 39.4, pt @ 163% IBW. CURRENT DIET:REGULAR PO DIET RECOMMENDATIONS: Consider [facility] MED diet for calorie control ADDITIONAL RECOMMENDATIONS: 1) Standing wt for accurate CBW 2) Weekly wt monitoring given obesity 3) Consider [facility] MED diet for Kb control
[2019-01-31] MEDS ORDERED: Heparin1,000 units/500ml Premix(Conc:2 units/ml) INJ PRN (14:13)
[2019-01-31] MEDS ORDERED: Omnipaque-300 100ml vial INJ PRN (14:15)
[2019-01-31] MEDS ORDERED: fentaNYL 100 mcg/2 mL IV ONE (14:18)
[2019-01-31] MEDS ORDERED: fentaNYL 100 mcg/2 mL IV PRN (14:28)
--- NOTE | 2019-01-31 15:27 | Moderate Sedation - Procedural ---
Moderate Sedation HPI Home Medication Reported Medications Cyclobenzaprine Hcl (CYCLOBENZAPRINE HCL) 5 Mg Tablet, 10 MG ORAL BID, TAB 01/24/19 Trazodone Hcl (TRAZODONE HCL) 300 Mg Tablet, 100 MG ORAL BEDTIME, TAB 01/24/19 Ranitidine Hcl* (ZANTAC*) 150 Mg Tablet, 150 MG ORAL TWICE A DAY, TAB 01/24/19 Tramadol Hcl/Acetaminophen (TRAMADOL-ACETAMINOPHN 37.5-325) 1 Each Tablet, 1 TAB ORAL Q6HR, TAB 01/24/19 Alprazolam (ALPRAZOLAM) 2 Mg Tablet, 0.5 MG ORAL BID, TAB 01/24/19 Albuterol Sulfate* (PROAIR HFA*) 8.5 Gm Hfa.aer.ad, 1 PUFF INH Q6H, #8.5 GM 0 Refills 01/24/19 Gabapentin* (GABAPENTIN*) 300 Mg Capsule, 300 MG ORAL DAILY, CAP 01/24/19 Tramadol Hcl* (ULTRAM*) 50 Mg Tablet, 37.5 MG ORAL Q6H PRN for For Pain, #30 TAB 0 Refills 11/29/18 Alprazolam* (XANAX*) 2 Mg Tablet, 2 MG ORAL Q8HR PRN for For Anxiety, #30 TAB 0 Refills 11/29/18 Enoxaparin* (LOVENOX*) 30 Mg/0.3 Ml Inj, 30 MG SUBQ EVERY 12 HOURS, EA 0 Refills For three weeks from the date of surgery then bridge to Xarelto when Lovenox treatment complete. Surgery date: 11/19/2018 11/27/18 Enoxaparin* (LOVENOX*) 30 Mg/0.3 Ml Inj, 30 MG SUBQ EVERY 12 HOURS, #60 EA 0 Refills 11/27/18 No Known Medications* (NKM - No Known Medications*) ., 0 ., 0 Refills 11/18/18 Patient History Allergies: Coded Allergies: NEOMYCIN (Unverified Allergy, Unknown, 11/19/18) POLYMYXIN B (Unverified Allergy, Unknown, 11/19/18) Pre-Procedural Mod Sedation Date: Jan 31, 2019 Pre-Assessment Time: 14:00 Vital Signs WNL Pre-Sedation Assessment: Eval. Immed. Prior to Sed, Reviewed H&P Airway Assessment (Malampati): II Evaluation Hx of untoward rxns to mod sed: No Procedures/Plans: Radiology Plan for Moderate Sedation: Fentanyl ASA Score: II Informed Consent The nature of the procedure/sedation; its benefits; risks and complications; and alternatives (and the risks and benefits of such alternatives) were discussed with the patient (or their legal education courses sales representative), prior to the procedure. All questions were answered to the patient's (or their legal education courses sales representative's) satisfaction and the patient (or their legal education courses sales representative) gave informed consent to the procedure. I attest that I re-evaluated the patient just prior to the surgery and that there has been no change in the patient's H&P, except as documented below: Post Procedure Assessment Post Procedure TIme: 15:00 Communication: No Apparent Limitation Mental Status: Awake Respiration: Unlabored Skin Condition: WNL Adomen: WNL Nausea: NO Vomiting: NO Franco Cifuentes M.D. Jan 31, 2019 15:27
--- NOTE | 2019-01-31 15:43 | Diagnostic Imaging Report ---
CLINICAL HISTORY: DVT. Status post recent orthopedic surgery. Unable to give anticoagulation. Filter was placed on 11/22/2018. Now follow-up ultrasounds demonstrate additional DVT. Request made for IVC filter retrieval. Total fluoroscopy time: 232.8 seconds Total fluoroscopy dose: 164.76 mGy Estimated blood loss: Less than 10 mL Total procedure time: 40 minutes Complications: None immediate Medications: 1% lidocaine local anesthetic; IV fentanyl for procedure analgesia. Patient monitored throughout the procedure by a dedicated interventional radiology nurse. Procedure performed: 1. Ultrasound-guided vascular access 2. Inferior venacavograms 3. Removal of IVC filter Technique and findings: Procedure discussed at length with the patient including technical aspects of the procedure, risks and potential benefits of the procedure. Potential risks discussed included bleeding, infection, contrast-induced allergies/nephrotoxicity toxicity. Also discussed filter-related complications including filter fracture, filter migration. Technical inability to remove filter also discussed. Patient understood, asking appropriate questions. Informed consent obtained. Patient positioned supine on the table and the right neck was prepped and draped in the usual sterile fashion, including usage sterile ultrasound probe cover and sterile ultrasound gel. Preprocedure timeout was performed, as per protocol. The right internal jugular vein was assessed with ultrasound, demonstrating a patent and compressible internal jugular vein. Appropriate access site was chosen and local anesthetic 1% lidocaine. A small dermatotomy made. The right internal jugular vein was accessed under real-time ultrasound guidance utilizing a 21-gauge needle. Sonographic images of needle access stored. Microwire advanced and exchange made over the wire for a micropuncture sheath. Inner dilator and microwire removed and a Bentson wire was advanced across the heart into the inferior vena cava. A 5 [place] pigtail catheter was advanced over the wire and inferior venacavogram was performed demonstrate no evidence of caval clot. The catheter was removed over the wire. The venotomy was serially dilated over the wire followed by placement of a 12 [place] sheath. A 10 [place] long sheath was advanced coaxially via the 12 [place] sheath. A 7 [place] catheter from an ensnare was advanced via the 10 [place] sheath. The ensnare was advanced and used to snare the hook of the filter under real time fluoroscopy. Filter was removed in its entirety. Physical exam of the filter on the back table confirmed complete removal of the filter including all its legs and secondary struts. Pigtail catheter was advanced over the wire and completion inferior venacavogram was obtained demonstrating no evidence of extravasation of contrast or other procedural complication. All devices were removed and hemostasis was easily achieved at the right internal jugular vein access site with manual compression and placement of Dermabond skin glue. A sterile dressing was applied. The patient tolerated the procedure well and left the department stable condition. IMPRESSION: Successful removal of IVC filter.
--- NOTE | 2019-01-31 16:23 | Cardiology Report ---
APPROVED REPORT EKG Measurement Heart [id number] Normal sinus rhythm Minimal voltage criteria for LVH, may be normal variant Possible Inferior infarct, age undetermined Abnormal ECG
--- NOTE | 2019-01-31 16:54 | NUR ---
CASE MANAGEMENT: INITIAL REVIEW 01/24/2019 53 YO M PRESENTED TO HOSPITAL FOR SURGERY CC: PAIN PMHx: HTN. ASTHMA. GASTRIC BYPASS. SI:LEFT KNEE PAIN. HX OF DVT. T 98.2 HR 76 RR 16 B/P 166/99 SATS 100% ON RA WBC 4.3 BUN 24 IS: LOVENOX SUBQ X1 CEFTRIAXONE IV X1 PATIENT ADMITTED TO MED/SURG 01/24/2019 @ 1830 DCP: PATIENT TO BE DISCHARGED TO HOME ONCE MEDICALLY CLEARED. PLAN OF CARE: IVC FILTER PLACEMENT 01/25/2019 SI:LEFT KNEE PAIN. HX OF DVT. T 98.5 HR 76 RR 19 B/P 149/76 SATS 98% ON RA NO LABS TODAY IS: CEFEPIME IV Q12H CELEBREX PO BID TRAZODONE PO QHS PEPCID PO BID GABAPENTIN PO QD FENTANYL IV X1 VANCO IV Q8H KNEE XRAY(Impression: Small joint effusion. No acute bony trauma. Well aligned knee arthroplasty prosthesis) MED/SURG STATUS DCP: PATIENT TO BE DISCHARGED TO HOME ONCE MEDICALLY CLEARED. 01/26/2019 SI:LEFT KNEE PAIN. HX OF DVT. T 98.2 HR 62 RR 18 B/P 139/80 SATS 98% ON RA NO LABS TODAY IS: CEFEPIME IV Q12H CELEBREX PO BID TRAZODONE PO QHS PEPCID PO BID GABAPENTIN PO QD FENTANYL IV X1 VANCO IV Q8H MED/SURG STATUS DCP: PATIENT TO BE DISCHARGED TO HOME ONCE MEDICALLY CLEARED.
--- NOTE | 2019-01-31 19:30 | NUR ---
HAND-OFF: Report given to RITO Benitez.
--- NOTE | 2019-01-31 19:34 | NUR ---
NURSE NOTES: Received report from Tiffany Davison RN. Patient A&Ox4. On room air, no signs of distress or labored breathing. IV intact, patent, and saline locked. Surgical site dry and intact. Bed in lowest position with call light in reach. Side rails up X2.
--- NOTE | 2019-01-31 21:30 | NUR ---
NURSE NOTES: Patient refused Levenox medication. RN explained risk and benefits. Patient still refused.
--- NOTE | 2019-01-31 23:45 | Progress Note ---
DATE: 01/31/2019 SUBJECTIVE: This unfortunate male was admitted to the hospital for further evaluation. The patient is status post total knee arthroplasty, subsequently has had knee swelling. He was seen and evaluated by ID and continued on antibiotics. He is going to have some white blood cell scan done. Denies nausea, vomiting. Denies diaphoresis. He has his IVC filter taken out because it has to be taken out within 3 months of placing in. OBJECTIVE: VITAL SIGNS: Stable. NECK: No JVD. No carotid bruit. HEART: S1, S2. LUNGS: Clear. ABDOMEN: Soft. EXTREMITIES: No clubbing or cyanosis. Knee swollen. IMPRESSION: 1. Status post total knee arthroplasty. 2. Significant effusions of the knee. 3. Cellulitis of the skin. 4. ID have seen the patient to make sure there are no periprosthetic infections. 5. To have the white blood cell tag done. 6. We will follow the patient closely. Long discussion held with the patient. Jeff Rivera M.D. DR: ADAN JOB#: [id number] CC:
[2019-02-01] VITALS: BP 127/78
[2019-02-01] MEDS: Vancomycin 750mg/NS 275ml IVPB SCH ×4 (00:32→08:00)
[2019-02-01] MEDS: Albuterol 90mcg Inhaler 8gm INH SCH ×4 (01:34→19:50)
[2019-02-01 04:00] VITALS: BP 128/81
[2019-02-01 07:50] LABS: ANION GAP 6 mmol/L (5-15); BLOOD UREA NITROGEN 11 mg/dL (7-18); CALCIUM 8.6 MG/DL (8.5-10.1); CARBON DIOXIDE 30 MMOL/L (21-32); CHLORIDE 106 MMOL/L (98-107); POTASSIUM 3.8 MMOL/L (3.5-5.1); SODIUM 142 MMOL/L (136-145)
[2019-02-01 08:00] VITALS: BP 148/92
--- NOTE | 2019-02-01 08:02 | NUR ---
HAND-OFF: Report given to Katairna Davison RN.
--- NOTE | 2019-02-01 08:12 | NUR ---
NURSE NOTES: Received report from RITO Rachel. Patient AO x 4. On room air. IVC removal site dry and intact. IV intact and patent with saline lock. Bed in the lowest position and locked with call light in reach. Will continue to monitor
--- NOTE | 2019-02-01 08:12 | NUR ---
NURSE NOTES: patient complains of mild headache, patient is alert and orientated x4, BP stable, 148/84 pulse is 68, patient is afebrile. Patient stated that " the pain medication I took last night did not work.I need something else." RN paged Dr. Rivera and relayed patient's condition with new order to give norco PRN.Order read back and carried out.
[2019-02-01] MEDS ORDERED: HYDROcodone/Acetamin 5/325 tab ORAL PRN ×2 (08:15→19:45)
--- NOTE | 2019-02-01 08:30 | NUR ---
NURSE NOTES: RN offered norco and scheduled morning medications but patient refused all the po med and lovenox but IV antibiotics. Patient fully understood about meds. Explained the risks and benefits. Patient is able to ambulate himself with mild pain but refused to pain meds @ this time. Patient will call nurses if needed. Dressing on right neck intact, no bleeding.
[2019-02-01] MEDS: Cefepime HCl 2 GM in D5W 55 ML IVPB SCH ×2 (08:54→20:11)
[2019-02-01] MEDS: Enoxaparin 30mg Inj SUBQ SCH ×2 (09:00→20:10)
[2019-02-01] MEDS: Vancomycin 1gm/D5W 275ml IVPB SCH ×4 (09:40→16:55)
--- NOTE | 2019-02-01 11:00 | NUR ---
NURSE NOTES: Patient was ssen by Dr. Rivera and RN relayed to that patient refused lovenox. Doctor is aware and he would talk to the patient.Patient denies chest pain, SOB, V/S stable.
[2019-02-01 12:00] VITALS: BP 148/86
--- NOTE | 2019-02-01 12:16 | General Progress Note ---
Assessment/Plan Status Narrative S/P TOTAL KNEE ARTHROPLASTY POST OF VTE S/P IVC FILTER PLACEMENT HE WAS SEND TO THE REHAB AND WAS STARTED ON ANTICOAGULATION HE PRESENTED WTIH SWOLLEN KNEE HIS WBC COUNT WAS NORMAL HIS ESR WAS 13 WITHIN NORMAL RANGE HE IS ABLE TO WALK THER IS NO DRAINGE FROM THE INCISION LONG DISCUSSION HELD WITH ORTHOPEDIC HE WAS STARTED ON IV ANTIBIOTIC ATTEMPT TO ASPIRATE THE KNEE WILL GIVE A CULTURE THAT IS LIKELY NO GROWTH PLAN FINISH COURSE OF ANTIBIOTIC AND SEND HOME LIKELY TOMMORROW HE WILL BE SEEN INTHE OFFICE WITH DR SCHMITT AND ME TEN DAYS LATER WE WILL ASSESS HIM AT THAT TIME AND SEE IF HIS KNEE IS SWOLLEN DUE TO HEMARTHROSIS OR OTHER S/P IVC FILTER PLACEMENT S/P REMOVAL OF IVC FILTER Subjective Date patient seen: Feb 01, 2019 Time patient seen: 12:10 Allergies: Coded Allergies: NEOMYCIN (Unverified Allergy, Unknown, 11/19/18) POLYMYXIN B (Unverified Allergy, Unknown, 11/19/18) Subjective knee is swollen no fever no chills no ches tpain no sob Objective Last 24 Hour Vital Signs Date Time Temp Pulse Resp B/P (MAP) Pulse Ox O2 Delivery O2 Flow Rate FiO2 02/01/19 09:00 Room Air 02/01/19 08:00 98.6 66 18 148/92 (110) 97 02/01/19 07:35 79 18 99 Room Air 02/01/19 07:31 73 18 99 Room Air 02/01/19 04:00 98.1 66 20 128/81 (97) 97 02/01/19 02:13 98.1 02/01/19 01:34 Room Air 21 02/01/19 01:34 Room Air 21 02/01/19 00:00 98.0 74 20 127/78 (94) 97 01/31/19 21:00 Room Air 01/31/19 20:00 98.1 73 20 163/92 (115) 99 01/31/19 19:40 95 18 98 Room Air 21 01/31/19 19:38 95 18 98 Room Air 21 01/31/19 16:52 98.9 68 18 157/99 (118) 95 01/31/19 16:42 98.1 65 20 98 Nasal Cannula 3.0 73 100 01/31/19 16:00 98.9 68 18 157/99 (118) 95 01/31/19 15:36 98.0 68 17 159/95 99 Room Air 01/31/19 15:24 62 16 172/91 99 Room Air 01/31/19 15:19 70 11 154/99 99 Room Air 01/31/19 15:14 97.6 68 14 159/106 99 Room Air 01/31/19 14:55 70 18 164/96 (118) 100 01/31/19 14:50 65 18 165/95 (118) 100 01/31/19 14:45 63 18 175/109 (131) 100 01/31/19 14:40 67 18 171/105 (127) 100 01/31/19 14:35 71 18 163/115 (131) 100 01/31/19 14:30 71 18 176/112 (133) 100 01/31/19 14:25 73 18 184/114 (137) 01/31/19 14:20 97.6 72 18 182/105 (130) 01/31/19 13:46 79 18 2.0 01/31/19 13:11 81 18 98 Room Air 21 01/31/19 13:11 81 18 98 Room Air 21 Intake and Output 01/31/19 02/01/19 19:00 07:00 Intake Total 1300.000 ml Balance 1300.000 ml Intake Oral 720 ml IV Total 580.000 ml # Voids 3 2 Laboratory Tests 02/01/19 07:00: Sodium Level 142, Potassium Level 3.8, Chloride Level 106, Carbon Dioxide Level 30, Anion Gap 6, Blood Urea Nitrogen 11, Creatinine 1.0, Estimat Glomerular Filtration Rate > 60, Glucose Level 86, Calcium Level 8.6, Vancomycin Level Trough 7.9 Height (Feet): 6 Height (Inches): 0.00 Weight (Pounds): 290 General Appearance: WD/WN EENT: PERRL/EOMI Neck: non-tender Cardiovascular: normal rate, regular rhythm, no JVD Respiratory/Chest: lungs clear Abdomen: non tender, soft Extremities: other - knee is swollen minimal warmth Jeff Jackson MD Feb 01, 2019 12:16
--- NOTE | 2019-02-01 12:28 | Infectious Diseases Prog Note ---
Assessment/Plan Assessment/Plan Abx: IV Vancomycin 01/25- Ceftriaxone x1 01/24 Ancef 01/24- Assessment: R knee pain- suspicion for early prosthetic knee infection (+pain, swelling, warmth) vs hemarthrosis (+use of anticoagulants) -xray knee: Small joint effusion. No acute bony trauma. Well aligned knee arthroplasty prosthesis -V. duplex : no DVT -ESR, CRP normal Afebrile Mild leukopenia -HIV ab screen neg s/p L TKR November 2018 after a work injury HTN MDD obesity asthma L LE DVT s/p IVC filter s/p gastric bypass surgery Plan: -Continue empiric IV Vancomycin #8 and start Cefepime #4 for PSA coverage -01/25 SP Ancef #2 -01/24 SP Ceftriaxone x1 -f/u cx -Monitor CBC/CMP, temperatures -Ortho f.u -f/u WBC scan of L knee to further evaluate -If safe, synovial fluid analysis and culture is recommended Thank you for this consultation. Will continue to follow along with you. Discussed with RN. Subjective Allergies: Coded Allergies: NEOMYCIN (Unverified Allergy, Unknown, 11/19/18) POLYMYXIN B (Unverified Allergy, Unknown, 11/19/18) Subjective afebrile no leukocytosis still has pain, swelling and warmth on L knee Objective Vital Signs Last 24 Hour Vital Signs Date Time Temp Pulse Resp B/P (MAP) Pulse Ox O2 Delivery O2 Flow Rate FiO2 02/01/19 12:00 98.1 63 18 148/86 (106) 98 02/01/19 09:00 Room Air 02/01/19 08:00 98.6 66 18 148/92 (110) 97 02/01/19 07:35 79 18 99 Room Air 02/01/19 07:31 73 18 99 Room Air 02/01/19 04:00 98.1 66 20 128/81 (97) 97 02/01/19 02:13 98.1 02/01/19 01:34 Room Air 21 02/01/19 01:34 Room Air 21 02/01/19 00:00 98.0 74 20 127/78 (94) 97 01/31/19 21:00 Room Air 01/31/19 20:00 98.1 73 20 163/92 (115) 99 01/31/19 19:40 95 18 98 Room Air 21 01/31/19 19:38 95 18 98 Room Air 21 01/31/19 16:52 98.9 68 18 157/99 (118) 95 01/31/19 16:42 98.1 65 20 98 Nasal Cannula 3.0 73 100 01/31/19 16:00 98.9 68 18 157/99 (118) 95 01/31/19 15:36 98.0 68 17 159/95 99 Room Air 01/31/19 15:24 62 16 172/91 99 Room Air 01/31/19 15:19 70 11 154/99 99 Room Air 01/31/19 15:14 97.6 68 14 159/106 99 Room Air 01/31/19 14:55 70 18 164/96 (118) 100 01/31/19 14:50 65 18 165/95 (118) 100 01/31/19 14:45 63 18 175/109 (131) 100 01/31/19 14:40 67 18 171/105 (127) 100 01/31/19 14:35 71 18 163/115 (131) 100 01/31/19 14:30 71 18 176/112 (133) 100 01/31/19 14:25 73 18 184/114 (137) 100 01/31/19 14:20 97.6 72 18 182/105 (130) 01/31/19 13:46 79 18 2.0 01/31/19 13:11 81 18 98 Room Air 21 01/31/19 13:11 81 18 98 Room Air 21 Height (Feet): 6 Height (Inches): 0.00 Weight (Pounds): 290 Objective GENERAL: The patient is an obese male, in no acute distress. HEENT: [place] conjunctivae. Anicteric sclerae. NECK: Supple. LUNGS: Clear to auscultation. HEART: S1, S2 without murmurs or rubs. ABDOMEN: Soft, nontender. EXTREMITIES: The patient has redness of the left knee and swelling distending distally. Microbiology Date/Time Source Procedure Growth Status 01/30/19 12:55 Blood Blood Culture - Preliminary NO GROWTH AFTER 24 HOURS Resulted 01/30/19 12:45 Blood Blood Culture - Preliminary NO GROWTH AFTER 24 HOURS Resulted Laboratory Tests Test 02/01/19 07:00 Sodium Level 142 MMOL/L (136-145) Potassium Level 3.8 MMOL/L (3.5-5.1) Chloride Level 106 MMOL/L (98-107) Carbon Dioxide Level 30 MMOL/L (21-32) Anion Gap 6 mmol/L (5-15) Blood Urea Nitrogen 11 mg/dL (7-18) Creatinine 1.0 MG/DL (0.55-1.30) Estimat Glomerular Filtration Rate > 60 mL/min (>60) Glucose Level 86 MG/DL (74-106) Calcium Level 8.6 MG/DL (8.5-10.1) Vancomycin Level Trough 7.9 ug/mL (5.0-12.0) Current Medications Medications (Trade) Dose Ordered Sig/Jeremy Route PRN Reason Start Time Stop Time Status Last Admin Dose Admin Acetaminophen/ Hydrocodone Bitart (Hazel 5/325) 1 tab Q8H PRN ORAL Severe Pain (Pain Scale 7-10) 02/01/19 08:15 02/08/19 08:14 Albuterol Sulfate (Proventil MDI) 1 puff Q6HRT INH 01/25/19 01:00 02/24/19 00:59 02/01/19 07:31 Cefepime HCl 2 gm/ Dextrose 55 ml @ 110 mls/hr EVERY 12 HOURS IVPB 01/29/19 21:00 02/05/19 20:59 02/01/19 08:54 Dextrose (Dextrose 50%) 25 ml Q30M PRN IV Hypoglycemia 01/24/19 23:00 02/23/19 22:59 Dextrose (Dextrose 50%) 50 ml Q30M PRN IV Hypoglycemia 01/24/19 23:00 02/23/19 22:59 Enoxaparin Sodium (Lovenox) 30 mg EVERY 12 HOURS SUBQ 01/25/19 09:00 02/24/19 08:59 01/30/19 20:11 Famotidine (Pepcid) 20 mg BID ORAL 01/25/19 09:00 02/24/19 08:59 01/31/19 08:44 Gabapentin (Neurontin) 300 mg DAILY ORAL 01/25/19 09:00 02/24/19 08:59 01/31/19 08:44 Lorazepam (Ativan) 1 mg QHS PRN ORAL For Anxiety 01/27/19 12:15 02/03/19 12:14 01/31/19 21:27 Magnesium Hydroxide (Mom) 30 ml HSPRN PRN ORAL Constipation 01/24/19 23:00 02/23/19 22:59 Ondansetron HCl (Zofran) 4 mg Q6H PRN IVP Nausea & Vomiting 01/25/19 18:00 02/24/19 17:59 01/25/19 18:03 Tramadol HCl (Ultram) 50 mg Q6H PRN ORAL Moderate Pain (Pain Scale 4-6) 01/31/19 10:04 02/07/19 10:03 02/01/19 01:43 Trazodone HCl (Desyrel) 100 mg BEDTIME ORAL 01/25/19 21:00 02/24/19 20:59 01/31/19 21:23 Vancomycin HCl (Vanco rx to dose) 1 ea DAILY PRN MISC Per rx protocol 01/25/19 14:15 02/24/19 14:14 Vancomycin HCl 1 gm/Dextrose 275 ml @ 183.708 mls/hr Q8HR@0100,0900,1700 IVPB 02/01/19 09:00 02/06/19 08:59 02/01/19 09:40 Yoselin Emanuel M.D. Feb 01, 2019 12:28
[2019-02-01] MEDS ORDERED: NS 275ml ONE (13:16)
[2019-02-01] MEDS ORDERED: Tubing IV Secondary IV ONE (13:16)
[2019-02-01 16:00] VITALS: BP 153/96
--- NOTE | 2019-02-01 16:15 | NUR ---
SHORE WORKING [employer] FILER 02/01/2019 SI:PROSTHETIC KNEE INFECTION T 98.1 HR 63 RR 18 B/P 148/86 SATS 98% ON RA WBC 2.4 IS:VANCOMYCIN 275mL IVPB CEFEPIME 55ml IVPB GABAPENTIN 300mG COLCHICINE 0.6mg ALBUTEROL 1puff INH DESYREL 100mg MED/SURG STATUS
--- NOTE | 2019-02-01 19:42 | NUR ---
NURSE NOTES: Patient complained of left knee pain stating norco did not work for him. Rn spoke to Dr. Rivera and relayed patient's condition, Dr. Rivera declined to give dilaudid but ordered norco 10/325mg 1 tab Q4hr for severe pain, Rn clarified norco 5/325 for mod pain. Order read back and carried out. Patient is aware.
--- NOTE | 2019-02-01 19:45 | NUR ---
HAND-OFF: Report given to Marguerite.
[2019-02-01 20:00] VITALS: BP 134/72
[2019-02-01] MEDS ORDERED: traMADol 50mg tab ORAL PRN (20:00)
--- NOTE | 2019-02-01 20:00 | NUR ---
NURSE NOTES: PATIENT IN BED. ON RA, NO SOB, NO ACUTE DISTRESS. IV ON L UPPER ARM INTACT, PATENT. DRESSING IB R NECK INTACT, DRY, CLEAN. BED IN LOWEST POSITION, LOCKED, ALARMS ON. CALL LIGHT IN REACH.
[2019-02-01] MEDS: TraZODone 100mg tab ORAL SCH (20:10)
[2019-02-01] MEDS: LORazepam 1mg tab ORAL PRN (22:21)
[2019-02-02] VITALS: BP 140/90
[2019-02-02] MEDS: Vancomycin 1gm/D5W 275ml IVPB SCH ×6 (01:05→16:52)
[2019-02-02] MEDS: Albuterol 90mcg Inhaler 8gm INH SCH ×4 (01:35→19:30)
[2019-02-02 04:00] VITALS: BP 147/96
[2019-02-02] MEDS: HYDROcodone/Acetamin 10/325 tab ORAL PRN ×3 (05:25→17:50)
--- NOTE | 2019-02-02 07:23 | NUR ---
Received patient from RITO Everett in bed. AO x4. No complaint of pain at this time. No s/s of distress. IV on the L upper arm 20 g intact and patent with saline lock. Bed in the lowest position and locked. Call light within reach. Will continue to monitor
--- NOTE | 2019-02-02 07:24 | NUR ---
HAND-OFF: Report given to Juancarlos VERAS.
[2019-02-02 08:00] VITALS: BP 134/73
[2019-02-02 08:17] LABS: ANION GAP 7 mmol/L (5-15); BLOOD UREA NITROGEN 11 mg/dL (7-18); CARBON DIOXIDE 27 MMOL/L (21-32); CHLORIDE 108 MMOL/L (98-107); CREATININE 1.1 MG/DL (0.55-1.30); POTASSIUM 3.6 MMOL/L (3.5-5.1); SODIUM 142 MMOL/L (136-145)
[2019-02-02] MEDS: Cefepime HCl 2 GM in D5W 55 ML IVPB SCH (08:29)
[2019-02-02] MEDS: Enoxaparin 30mg Inj SUBQ SCH (08:41)
[2019-02-02 12:00] VITALS: BP 152/88
[2019-02-02 16:00] VITALS: BP 139/79
--- NOTE | 2019-02-02 19:19 | NUR ---
HAND-OFF: Report given to RITO Everett.
--- NOTE | 2019-02-02 19:43 | General Progress Note ---
Progress Note Progress Note came to see patientt unhappy and did not want to be examined left wihtout further seeing her per ortho Jeff Rivera MD Feb 02, 2019 19:43
--- NOTE | 2019-02-02 20:08 | NUR ---
NURSE NOTES: PATIENT SEEN BY DR MARIO AND RECEIVED ORDER TO DC HOME NOW. BELONGINGS CHECKED, IV REMOVED. DC INSTRUCTIONS GIVEN WITH PRESCRIPTION. PATIENT TOLD TO FOLLOW UP WITH MD AT OUTPATIENT CLINIC IN 10 DAYS. PATIENT VERBALIZED UNDERSTANDING OF ALL DC INSTRUCTIONS. NEPHEW WILL PROJECT CONTROL ANALYST PATIENT AT DOWNSTAIRS. PATIENT LEFT IN STABLE CONDITION.
--- NOTE | 2019-02-03 02:00 | Discharge Summary ---
DATE OF ADMISSION: 01/24/2019 DATE OF DISCHARGE: 02/02/2019 HISTORY OF PRESENT ILLNESS: The patient was admitted, initial impression was possible cellulitis. This is an unfortunate male who is status post total knee arthroplasty, subsequently having DVT. He underwent an IVC filter placement. He was admitted to the hospital. He underwent a venous Doppler, there was no DVT. His IVC filter was removed. His ESR was 13. His white blood cell count on admission was 4.3. He was subsequently discharged to follow up as outpatient. IMPRESSION: Possible cellulitis, question failed total knee arthroplasty, hematoma and hemarthrosis. Dr. Wang other tests once and wants to see him in his office in 10 days. Long discussion held with him. Pain medication will be given to the patient, will be followed up as outpatient. If he gets fever, if he has drainage from the knee, he comes in right away. He will be worked up as outpatient by Dr. Wang, Orthopedics, in 10 days for further evaluation. Jeff Rivera M.D. DR: Brittany JOB#: [id number] CC:
== END 2019-02-02 20:00 | disposition home or self-care (01) | DRG 603 ==
LOC: EMR 16:10 → 4E 18:30 → EDBEDREQ 20:18 → 4E 20:43
PROC: 06PY3DZ Removal of Intraluminal Device from Lower Vein, Percutaneous Approach (ICD-10-PCS; principal; 2019-01-31)
DX: L03.116 Cellulitis of left lower limb (principal); T84.093A Other mechanical complication of internal left knee prosthesis, initial encounter; M25.062 Hemarthrosis, left knee; M96.840 Postprocedural hematoma of a musculoskeletal structure following a musculoskeletal system procedure; Y83.8 Other surgical procedures as the cause of abnormal reaction of the patient, or of later complication, without mention of misadventure at the time of the procedure; I10 Essential (primary) hypertension; Z86.718 Personal history of other venous thrombosis and embolism; Z98.84 Bariatric surgery status; Z88.1 Allergy status to other antibiotic agents; E66.9 Obesity, unspecified; F32.9 Major depressive disorder, single episode, unspecified; J45.909 Unspecified asthma, uncomplicated; M25.462 Effusion, left knee; Z68.39 Body mass index [BMI] 39.0-39.9, adult
CPT/HCPCS: 36415; 37193; 80048; 80053; 80202; 83735; 85007; 85025; 85610; 85651; 85730; 86140; 86703; 87040; 93005; 93970; 93971; 94640; 94664; 96372; 99285; J2405; J8499

== ENCOUNTER 2019-02-10 21:52 | Emergency (ER) | payer OTHER ==
[~2019-02-10] VITALS: Ht 182.9 cm; Wt 115.7 kg
[~2019-02-10 21:52] MED LIST changes: +ALPRAZOLAM2 MG ORAL; +CYCLOBENZAPRINE5 MG ORAL; +GABAPENTIN300 MG ORAL; +PROAIR HFA8.5 GM INH; +TRAMADOL-ACETA1 EACH ORAL; +TRAZODONE HCL300 MG ORAL; +ZANTAC150 MG ORAL
--- NOTE | 2019-02-10 22:05 | NUR ---
ED Nurse Note: pt BIBA from a park c/c ETOH, ALOC, pt states he drank alittle bit today, pt unable to stay awake and noted increase in lethargy. pt AA&ox1, gcs=14, skin warm and dry, resp even and unlabored on RA, -n/v/d, vss, will cont monitor. safety precautions in place.
[2019-02-10 22:25] VITALS: BP 138/79
--- NOTE | 2019-02-10 22:42 | Emergency Room Report ---
History of Present Illness General Chief Complaint: Altered Level of Consciousness Source: Medical Record Present Illness HPI 53-year-old male brought in by EMS after increased altered level consciousness. Patient was found in a park. He reports having multiple alcoholic drinks. Patient states that he drinks several cups of alcohol. He denies any current complaints. He states he feels fine. History is limited by patient's intoxication. Allergies: Coded Allergies: NEOMYCIN (Unverified Allergy, Unknown, 11/19/18) POLYMYXIN B (Unverified Allergy, Unknown, 11/19/18) Patient History Past Medical History: see triage record Reviewed Nursing Documentation: PMH: Agreed; PSxH: Agreed Nursing Documentation-PMH Hx Cardiac Problems: No Hx Hypertension: Yes Hx Asthma: Yes Hx Cancer: No Hx Gastrointestinal Problems: Yes - gastric bypass Hx Neurological Problems: No Review of Systems All Other Systems: limited - Review of systems: Review systems is limited by patient's being a poor historian Physical Exam Vital Signs Date Time Temp Pulse Resp B/P (MAP) Pulse Ox O2 Delivery O2 Flow Rate FiO2 02/10/19 21:55 98.4 84 16 128/74 (92) 98 Room Air Sp02 EP Interpretation: reviewed, normal General Appearance: normal inspection, well appearing, no apparent distress, alert, GCS 15 Head: atraumatic ENT: normal ENT inspection, hearing grossly normal, normal voice Neck: normal inspection, full range of motion, supple, no bony tend Respiratory: normal inspection, lungs clear, normal breath sounds, no respiratory distress, no retraction, no wheezing Cardiovascular #1: regular rate, rhythm, no edema Gastrointestinal: normal inspection, normal bowel sounds, non tender, soft, no guarding, no hernia Genitourinary: no CVA tenderness Musculoskeletal: normal inspection, back normal, normal range of motion Neurologic: normal inspection, alert, responsive, other - Slurred speech, oriented Psychiatric: normal inspection, judgement/insight normal, mood/affect normal Medical Decision Making Diagnostic Impression: Primary Impression: Alcohol intoxication Additional Impression: Sleep apnea ER Course Patient presented for increased altered mental status. Differential diagnosis include was not limited to alcohol intoxication, CVA, intracranial hemorrhage among others. Because of complexity of patient's case laboratory testing and imaging studies were ordered. Patient was noted to have recent heavy alcohol intake. Patient's exam is notable for only slurred speech. A CT the head was ordered due to patient's recent anticoagulant use. CT the head read by radiology showed no evidence of acute intracranial process. Patient was noted to have some episodes of sleep apnea and was started on CPAP. Last Vital Signs Date Time Temp Pulse Resp B/P (MAP) Pulse Ox O2 Delivery O2 Flow Rate FiO2 02/10/19 22:25 84 16 Room Air 02/10/19 22:25 98.4 138/79 98 Status: improved Disposition: HOME, SELF-CARE Condition: Stable Wai Rubin MD Feb 10, 2019 22:42
--- NOTE | 2019-02-10 23:20 | NUR ---
ED Nurse Note: pt back from CT, vss, resp even and unlabored on RA, now awake and alert, given extra blanket for comfort, will cont monitor.
[2019-02-11] VITALS: BP 128/76
--- NOTE | 2019-02-11 | NUR ---
ED Nurse Note: pt sleeping at this time, vss, will cont monitor. safety precaution in place.
--- NOTE | 2019-02-11 01:30 | NUR ---
ED Nurse Note: pt ambulates to restroom w/ steady gait, no weakness noted at this time, pt AA&ox4, gcs=15. will cont monitor.
[2019-02-11 02:00] VITALS: BP 121/68
--- NOTE | 2019-02-11 02:00 | NUR ---
HAND-OFF: Report given to RITO PEGUERO AND ENDORSED CARE. PT VSS, RESP EVEN AND UNLABORED ON CPAP.
--- NOTE | 2019-02-11 02:00 | NUR ---
ED Nurse Note: RECEIVED PATIENT FROM RITO LEMONS. PATIENT IN STABLE CONDITION. NAD. AO4. VSS. ASSISTED PATIENT TO THE BATHROOM.
[2019-02-11 05:40] VITALS: BP 121/68
--- NOTE | 2019-02-11 05:40 | NUR ---
ER DISCHARGE NOTE: Patient is cleared to be discharged per ERMD, pt is aox4, on room air, with stable vital signs. pt was given dc and prescription instructions, pt was able to verbalize understanding, pt id band removed. pt is able to ambulate with steady gait. pt took all belongings.
--- NOTE | 2019-02-11 09:07 | Diagnostic Imaging Report ---
Indications: Altered level of consciousness Technique: Spiral acquisitions obtained through the brain. Angled axial and coronal 5 x 5 mm slices were reconstructed. Total dose length product 1449.98 mGycm. CTDI vol(s) 70.38 mGy. Dose reduction achieved using automated exposure control Comparison: None. Findings: No acute intracranial hemorrhage or edema. No mass effect nor midline shift. Normal-sized ventricles and extra-axial CSF spaces. Patent cavum septum pellucidum. The mastoids are clear. Intact calvarium. Visualized orbits and sinuses are unremarkable. Impression: Negative This agrees with the preliminary interpretation provided overnight by [facility] teleradiology service. The CT scanner at [facility] is accredited by the [employer] and the scans are performed using protocols designed to limit radiation exposure to as low as reasonably achievable to attain images of sufficient resolution adequate for diagnostic evaluation.
== END 2019-02-11 05:40 | disposition home or self-care (01) ==
LOC: EDBD 21:52 → EMR 22:09
DX: F10.129 Alcohol abuse with intoxication, unspecified (principal); G47.30 Sleep apnea, unspecified; Z88.8 Allergy status to other drugs, medicaments and biological substances; I10 Essential (primary) hypertension; Z98.84 Bariatric surgery status
CPT/HCPCS: 70450; 94664; 99284

== ENCOUNTER 2019-07-16 16:57 | Emergency (ER) | payer MEDICARE, MEDICAID ==
[~2019-07-16] VITALS: Ht 182.9 cm; Wt 108.9 kg
--- NOTE | 2019-07-16 17:19 | Emergency Room Report ---
History of Present Illness General Chief Complaint: Gastrointestinal Bleed Source: Patient Present Illness HPI Patient presents with complaints of blood per rectum Reports that he is been having diffuse abdominal cramping as well about 2 weeks ago he initially noticed dark red blood in the stool as symptoms persisted he saw his primary physician And was sent to the emergency room Denies any chest pain or shortness of breath denies any back or flank pain patient reports he had a colonoscopy about 2 years ago Denies any fevers or chills denies any recent travel or trauma Allergies: Coded Allergies: NEOMYCIN (Unverified Allergy, Unknown, 11/19/18) POLYMYXIN B (Unverified Allergy, Unknown, 11/19/18) Patient History Past Medical History: see triage record Reviewed Nursing Documentation: PMH: Agreed; PSxH: Agreed Nursing Documentation-PMH Past Medical History: No History, Except For Hx Cardiac Problems: No Hx Hypertension: Yes Hx Asthma: Yes Hx Cancer: No Hx Gastrointestinal Problems: Yes - gastric bypass Hx Neurological Problems: No Review of Systems All Other Systems: negative except mentioned in HPI Physical Exam Vital Signs Date Time Temp Pulse Resp B/P (MAP) Pulse Ox O2 Delivery O2 Flow Rate FiO2 07/16/19 17:05 98.2 74 20 150/88 (108) 98 Room Air Sp02 EP Interpretation: reviewed, normal General Appearance: well appearing, no apparent distress Head: normocephalic, atraumatic Eyes: bilateral eye PERRL, bilateral eye EOMI ENT: hearing grossly normal, normal pharynx, TMs + canals normal, uvula midline Neck: full range of motion, supple, no meningismus, no bony tend Respiratory: lungs clear, normal breath sounds, no rhonchi, no respiratory distress, no retraction, no accessory muscle use Cardiovascular #1: normal peripheral pulses, regular rate, rhythm, no edema, no gallop, no JVD, no murmur Gastrointestinal: normal bowel sounds, non tender - On palpation however subjectively points diffusely throughout the 4 quadrants of the abdomen, soft, no mass, no organomegaly, non-distended, no guarding, no hernia, no pulsatile mass, no rebound Rectal: other - Patient displays a picture with dark tarry stools Genitourinary: no CVA tenderness Neurologic: motor strength/tone normal, superintendent recreation III-XII nml as tested, oriented x3 , sensory intact, responsive Psychiatric: normal inspection, mood/affect normal Skin: no rash Lymphatic: normal inspection, no adenopathy Medical Decision Making Diagnostic Impression: Primary Impression: Gastrointestinal hemorrhage ER Course Multiple differentials and consideration including but not limited to GI hemorrhage diverticulosis Patient's hemoglobin has decreased from 12-10 patient is also reported to be on anticoagulation INR is 1.0 And patient requires further inpatient care Labs Test 07/16/19 17:30 White Blood Count 4.2 K/UL (4.8-10.8) Red Blood Count 3.22 M/UL (4.70-6.10) Hemoglobin 10.5 G/DL (14.2-18.0) Hematocrit 29.6 % (42.0-52.0) Mean Corpuscular Volume 92 FL (80-99) Mean Corpuscular Hemoglobin 32.7 PG (27.0-31.0) Mean Corpuscular Hemoglobin Concent 35.6 G/DL (32.0-36.0) Red Cell Distribution Width 13.4 % (11.6-14.8) Platelet Count 199 K/UL (150-450) Mean Platelet Volume 5.0 FL (6.5-10.1) Neutrophils (%) (Auto) 53.2 % (45.0-75.0) Lymphocytes (%) (Auto) 37.4 % (20.0-45.0) Monocytes (%) (Auto) 7.6 % (1.0-10.0) Eosinophils (%) (Auto) 0.9 % (0.0-3.0) Basophils (%) (Auto) 0.8 % (0.0-2.0) Prothrombin Time 10.5 SEC (9.30-11.50) Prothromb Time International Ratio 1.0 (0.9-1.1) Activated Partial Thromboplast Time 25 SEC (23-33) Sodium Level 141 MMOL/L (136-145) Potassium Level 3.4 MMOL/L (3.5-5.1) Chloride Level 105 MMOL/L (98-107) Carbon Dioxide Level 29 MMOL/L (21-32) Anion Gap 7 mmol/L (5-15) Blood Urea Nitrogen 27 mg/dL (7-18) Creatinine 1.1 MG/DL (0.55-1.30) Estimat Glomerular Filtration Rate > 60 mL/min (>60) Glucose Level 104 MG/DL (74-106) Calcium Level 8.9 MG/DL (8.5-10.1) Total Bilirubin 0.4 MG/DL (0.2-1.0) Aspartate Amino Transf (AST/SGOT) 18 U/L (15-37) Alanine Aminotransferase (ALT/SGPT) 19 U/L (12-78) Alkaline Phosphatase 58 U/L (46-116) Total Protein 7.5 G/DL (6.4-8.2) Albumin 4.0 G/DL (3.4-5.0) Globulin 3.5 g/dL Albumin/Globulin Ratio 1.1 (1.0-2.7) Rhythm Strip Diag. Results EP Interpretation: yes Rate: 80 Rhythm: NSR, no PVC's, no ectopy Last Vital Signs Date Time Temp Pulse Resp B/P (MAP) Pulse Ox O2 Delivery O2 Flow Rate FiO2 07/16/19 17:05 98.2 74 20 150/88 (108) 98 Room Air Status: improved Disposition: XFER [facility] Condition: Improved Noreen Parker DO Jul 16, 2019 17:19
[2019-07-16 17:20] VITALS: BP 134/85
[2019-07-16 17:52] LABS: BASOPHILS % (AUTO) 0.8 % (0.0-2.0); EOSINOPHILS % (AUTO) 0.9 % (0.0-3.0); HEMATOCRIT 29.6 % (42.0-52.0); HEMOGLOBIN 10.5 G/DL (14.2-18.0); LYMPHOCYTES % (AUTO) 37.4 % (20.0-45.0); MEAN CORPUSCULAR VOLUME 92 FL (80-99); MONOCYTES % (AUTO) 7.6 % (1.0-10.0); NEUTROPHILS % (AUTO) 53.2 % (45.0-75.0); PLATELET COUNT 199 K/UL (150-450); RED BLOOD COUNT 3.22 M/UL (4.70-6.10); RED CELL DISTRIBUTION WIDTH 13.4 % (11.6-14.8); WHITE BLOOD COUNT 4.2 K/UL (4.8-10.8)
[2019-07-16 17:58] LABS: ANION GAP 7 mmol/L (5-15); BLOOD UREA NITROGEN 27 mg/dL (7-18); CALCIUM 8.9 MG/DL (8.5-10.1); CARBON DIOXIDE 29 MMOL/L (21-32); CHLORIDE 105 MMOL/L (98-107); CREATININE 1.1 MG/DL (0.55-1.30); POTASSIUM 3.4 MMOL/L (3.5-5.1); SODIUM 141 MMOL/L (136-145)
[2019-07-16 18:02] LABS: ALANINE AMINOTRANSFERASE 19 U/L (12-78); ALBUMIN/GLOBULIN RATIO 1.1 (1.0-2.7); ALKALINE PHOSPHATASE 58 U/L (46-116); ASPARTATE AMINO TRANSFERASE 18 U/L (15-37); BILIRUBIN,TOTAL 0.4 MG/DL (0.2-1.0)
[2019-07-16 19:19] VITALS: BP 134/80
[2019-07-16 20:00] VITALS: BP 128/79
--- NOTE | 2019-07-17 12:45 | Cardiology Report ---
APPROVED REPORT EKG Measurement Heart [id number] Normal sinus rhythm Normal ECG
== END 2019-07-16 20:00 | disposition short-term general hospital (02) ==
LOC: EMR 17:53
DX: K62.5 Hemorrhage of anus and rectum (principal); Z98.84 Bariatric surgery status; I10 Essential (primary) hypertension; Z88.8 Allergy status to other drugs, medicaments and biological substances; Z79.01 Long term (current) use of anticoagulants
CPT/HCPCS: 36415; 80053; 85025; 85610; 85730; 93005; 99284

== ENCOUNTER 2019-12-30 18:05 | Emergency (ER) | payer MEDICARE, MEDICAID ==
[~2019-12-30] VITALS: Ht 182.9 cm; Wt 113.4 kg
[2019-12-30 18:18] VITALS: BP_SYST 129; BP_SYST 148; BP_DIAS 101; BP_DIAS 83
--- NOTE | 2019-12-30 18:35 | Emergency Room Report ---
History of Present Illness General Chief Complaint: General Complaint Source: Patient Present Illness HPI 54-year-old male used to be on apixaban 3 weeks ago presents with black tarry stools x1 day no aggravating or alleviating factor severity is mild, constant patient took a picture patient also endorses generalized abdominal cramps no aggravating relieving factors severity is mild, constant no fevers chills chest pain shortness of breath no dyspnea on exertion patient presents for evaluation Allergies: Coded Allergies: NEOMYCIN (Unverified Allergy, Unknown, 11/19/18) POLYMYXIN B (Unverified Allergy, Unknown, 11/19/18) COVID-19 Screening Contact w/high risk pt: No Recent Travel to affected area: No Experienced COVID-19 symptoms?: No COVID-19 Testing performed LOG FEEDER: No Patient History Past Medical History: see triage record Reviewed Nursing Documentation: PMH: Agreed; PSxH: Agreed Nursing Documentation-PM Past Medical History: No History, Except For Hx Cardiac Problems: No Hx Hypertension: Yes Hx Asthma: Yes Hx Cancer: No Hx Gastrointestinal Problems: Yes - gastric bypass Hx Neurological Problems: No Review of Systems All Other Systems: negative except mentioned in HPI Physical Exam Vital Signs Date Time Temp Pulse Resp B/P (MAP) Pulse Ox O2 Delivery O2 Flow Rate FiO2 12/30/19 18:11 99.1 97 17 148/101 (117) 98 Room Air General Appearance: well appearing, no apparent distress Head: normocephalic, atraumatic Eyes: bilateral eye PERRL, bilateral eye EOMI ENT: hearing grossly normal, normal voice Neck: full range of motion, supple Respiratory: no respiratory distress, speaking full sentences Gastrointestinal: non tender, soft, no guarding Musculoskeletal: gait/station normal Neurologic: alert, normal gait Psychiatric: mood/affect normal Skin: no rash Medical Decision Making Diagnostic Impression: Primary Impression: Melena ER Course 54-year-old male presents with alleged melena, patient with possible black tarry stools may have been from hemoglobin is actually improved from his previous,. Patient is hemodynamically stable, counseled patient strict return precautions were discussed CT scan is negative, labs unremarkable disposition home with return precautions. Patient found to have a UTI patient given antibiotics disposition home with return precautions follow-up with history Laboratory Tests Test 12/30/19 18:26 White Blood Count 4.9 K/UL (4.8-10.8) Red Blood Count 3.98 M/UL (4.70-6.10) L Hemoglobin 11.2 G/DL (14.2-18.0) L Hematocrit 36.7 % (42.0-52.0) L Mean Corpuscular Volume 92 FL (80-99) Mean Corpuscular Hemoglobin 28.1 PG (27.0-31.0) Mean Corpuscular Hemoglobin Concent 30.4 G/DL (32.0-36.0) L Red Cell Distribution Width 18.1 % (11.6-14.8) H Platelet Count 237 K/UL (150-450) Mean Platelet Volume 6.6 FL (6.5-10.1) Neutrophils (%) (Auto) 53.3 % (45.0-75.0) Lymphocytes (%) (Auto) 35.9 % (20.0-45.0) Monocytes (%) (Auto) 7.4 % (1.0-10.0) Eosinophils (%) (Auto) 0.8 % (0.0-3.0) Basophils (%) (Auto) 2.6 % (0.0-2.0) H Prothrombin Time 11.1 SEC (9.30-11.50) Prothrombin Time INR 1.0 (0.9-1.1) Activated Partial Thromboplast Time 25 SEC (23-33) Urine Color Yellow Urine Appearance Cloudy Urine pH 5 (4.5-8.0) Urine Specific [place] 1.030 (1.005-1.035) Urine Protein 2+ (NEGATIVE) H Urine Glucose (UA) Negative (NEGATIVE) Urine Ketones Negative (NEGATIVE) Urine Blood 2+ (NEGATIVE) H Urine Nitrite Negative (NEGATIVE) Urine Bilirubin Negative (NEGATIVE) Urine Urobilinogen Normal MG/DL (0.0-1.0) Urine Leukocyte Esterase 3+ (NEGATIVE) H Urine RBC 2-4 /HPF (0 - 0) H Urine WBC Tntc /HPF (0 - 0) H Urine Squamous Epithelial Cells Occasional /LPF Urine Bacteria Moderate /HPF (NONE) H Sodium Level 139 MMOL/L (136-145) Potassium Level 3.3 MMOL/L (3.5-5.1) L Chloride Level 104 MMOL/L (98-107) Carbon Dioxide Level 22 MMOL/L (21-32) Anion Gap 13 mmol/L (5-15) Blood Urea Nitrogen 27 mg/dL (7-18) H Creatinine 1.2 MG/DL (0.55-1.30) Estimated Glomerular Filtration Rate > 60 mL/min (>60) Glucose Level 150 MG/DL (74-106) H Calcium Level 8.7 MG/DL (8.5-10.1) Total Bilirubin 0.3 MG/DL (0.2-1.0) Aspartate Amino Transferase (AST) 18 U/L (15-37) Alanine Aminotransferase (ALT) 29 U/L (12-78) Alkaline Phosphatase 52 U/L (46-116) Total Protein 7.6 G/DL (6.4-8.2) Albumin 3.8 G/DL (3.4-5.0) Globulin 3.8 g/dL Albumin/Globulin Ratio 1.0 (1.0-2.7) Lipase 248 U/L (73-393) Last Vital Signs Date Time Temp Pulse Resp B/P (MAP) Pulse Ox O2 Delivery O2 Flow Rate FiO2 12/30/19 18:18 99.1 98 17 129/83 87 Room Air Disposition: HOME, SELF-CARE Condition: Stable Scripts Cephalexin* (KEFLEX*) 500 Mg Tablet 500 MG ORAL EVERY 6 HOURS, #28 CAP Prov: Colby Sheikh MD 12/30/19 Referrals: Jeff Rivera MD (PCP) Patient Instructions: Urinary Tract Infection, [id number] Additional Instructions: The patient was provided with discharge instructions, notified to follow-up with a primary care doctor and or specialist in the next 24-48 hours, and to return to the ED if they have worsening of their symptoms. Please note that this report is being documented using [employer] technology. This can lead to erroneous entry secondary to incorrect interpretation by the dictating instrument. Colby Sheikh MD December 30, 2019 18:35
[2019-12-30 18:49] LABS: ANION GAP 13 mmol/L (5-15); BLOOD UREA NITROGEN 27 mg/dL (7-18); CALCIUM 8.7 MG/DL (8.5-10.1); CARBON DIOXIDE 22 MMOL/L (21-32); CHLORIDE 104 MMOL/L (98-107); CREATININE 1.2 MG/DL (0.55-1.30); POTASSIUM 3.3 MMOL/L (3.5-5.1); SODIUM 139 MMOL/L (136-145)
[2019-12-30 18:50] LABS: BASOPHILS % (AUTO) 2.6 % (0.0-2.0); EOSINOPHILS % (AUTO) 0.8 % (0.0-3.0); HEMATOCRIT 36.7 % (42.0-52.0); HEMOGLOBIN 11.2 G/DL (14.2-18.0); LYMPHOCYTES % (AUTO) 35.9 % (20.0-45.0); MEAN CORPUSCULAR VOLUME 92 FL (80-99); MONOCYTES % (AUTO) 7.4 % (1.0-10.0); NEUTROPHILS % (AUTO) 53.3 % (45.0-75.0); PLATELET COUNT 237 K/UL (150-450); RED BLOOD COUNT 3.98 M/UL (4.70-6.10); RED CELL DISTRIBUTION WIDTH 18.1 % (11.6-14.8); WHITE BLOOD COUNT 4.9 K/UL (4.8-10.8)
[2019-12-30 18:54] LABS: ALANINE AMINOTRANSFERASE 29 U/L (12-78); ALBUMIN 3.8 G/DL (3.4-5.0); ALKALINE PHOSPHATASE 52 U/L (46-116); ASPARTATE AMINO TRANSFERASE 18 U/L (15-37); BILIRUBIN,TOTAL 0.3 MG/DL (0.2-1.0)
--- NOTE | 2019-12-30 19:03 | Diagnostic Imaging Report ---
EXAM: CT Abdomen and Pelvis Without Intravenous Contrast CLINICAL HISTORY: PAIN TECHNIQUE: Axial computed tomography images of the abdomen and pelvis without intravenous contrast. CTDI is 16 mGy and DLP is 901 mGy-cm. One or more of the following dose reduction techniques were used: automated exposure control, adjustment of the mA and/or kV according to patient size, use of iterative reconstruction technique. Coronal and sagittal reformatted images were created and reviewed. COMPARISON: 11/22/18 FINDINGS: Lung bases: Unremarkable. No mass. No consolidation. ABDOMEN: Liver: Unremarkable. Gallbladder and bile ducts: Poorly visualized gallbladder, likely contracted. Correlate with operative history. No calcified stones. No ductal dilation. Pancreas: Unremarkable. No ductal dilation. Spleen: Old granulomatous disease in the liver and spleen. Adrenals: Unremarkable. No mass. Kidneys and ureters: Intervally mildly enlarged left posterolateral renal cortical mildly exophytic 0.8 cm probably benign cyst is incompletely evaluated on this study, recommend outpatient nonemergent renal ultrasound to further characterize. Otherwise unremarkable kidneys. No obstructing stones. Stomach and bowel: Phillip-en-Y gastric bypass anatomy. Colonic diverticulosis without acute diverticulitis. Large colonic fecal burden and small bowel fecal contents, which could be incidental or could represent a manifestation of slow intestinal transit. This could be a cause for pain. PELVIS: Appendix: No findings to suggest acute appendicitis. Bladder: Decompressed thick walled urinary bladder, correlate to exclude cystitis. No stones. Reproductive: Unremarkable as visualized. ABDOMEN and PELVIS: Intraperitoneal space: Unremarkable. No free air. No significant fluid collection. Bones/joints: No acute fracture. No dislocation. Soft tissues: Unremarkable. Vasculature: Unremarkable. No abdominal aortic aneurysm. Lymph nodes: Unremarkable. No enlarged lymph nodes. IMPRESSION: 1. Phillip-en-Y gastric bypass anatomy. 2. Large colonic fecal burden and small bowel fecal contents, which could be incidental or could represent a manifestation of slow intestinal transit. This could be a cause for pain. 3. Decompressed thick walled urinary bladder, correlate to exclude cystitis. 4. Poorly visualized gallbladder, likely contracted. Correlate with operative history. 5. Colonic diverticulosis without acute diverticulitis. 6. Intervally mildly enlarged left posterolateral renal cortical mildly exophytic 0.8 cm probably benign cyst is incompletely evaluated on this study, recommend outpatient nonemergent renal ultrasound to further characterize.
[2019-12-30 19:09] VITALS: BP 135/76
[2019-12-30 19:49] LABS: APPEARANCE,URINE CLOUDY; BILIRUBIN, URINE NEGATIVE (NEGATIVE); GLUCOSE, URINE (UA) NEGATIVE (NEGATIVE); KETONES,URINE NEGATIVE (NEGATIVE); LEUKOCYTE ESTERASE ,URINE 3+ (NEGATIVE); NITRITE,URINE NEGATIVE (NEGATIVE); PH,URINE 5 (4.5-8.0); PROTEIN,URINE 2+ (NEGATIVE); UROBILINOGEN,URINE NORMAL MG/DL (0.0-1.0)
[2019-12-30 19:52] LABS: COLOR,URINE YELLOW
[2019-12-30] MEDS ORDERED: CEPHALEXIN500 M1 ORAL (20:00)
[2019-12-30] MEDS ORDERED: MIRALAX17 G2 ORAL (20:02)
[2019-12-30 20:05] VITALS: BP 135/76
== END 2019-12-30 20:05 | disposition home or self-care (01) ==
LOC: EMR 18:26
DX: K92.1 Melena (principal); Z88.8 Allergy status to other drugs, medicaments and biological substances; I10 Essential (primary) hypertension; Z98.84 Bariatric surgery status; K57.90 Diverticulosis of intestine, part unspecified, without perforation or abscess without bleeding
CPT/HCPCS: 36415; 74176; 80053; 81003; 83690; 85025; 85610; 85730; 87086; 99284